=== PATIENT | female | born 1990 | race American Indian/Alaskan Native ===

== ENCOUNTER 2016-09-15 10:06 | Observation (INO) | payer OTHER ==
[2016-09-15 10:06] VITALS: BMI 37.0
[2016-09-15 10:13] VITALS: TEMP 99.2
[2016-09-15] MEDS ORDERED: Sodium Chloride 0.9% 1,000 ML IV STA (10:36)
--- NOTE | 2016-09-15 10:46 | ED PDOC ---
Arrival/HPI - General Chief Complaint: GI Problem Time Seen by Provider: 09/15/16 10:13 Historian: Patient - History of Present Illness Narrative History of Present Illness (Text): 09/15/16 10:43 26yo female present with complaint of vomiting and abdominal pain x 5days. States she was seen in [place] 5daysago for same complaint and DC home after normal lab with antiemetics. States she came to ED for persistent nonbilious/ bloody vomiting. Denies fever, chills, diarrhea, constipation, hematemesis, melena, hematochezia, chest pain, SOB, any other complaint. Past Medical History - Provider Review Nursing Documentation Reviewed: Yes - Infectious Disease Hx of Infectious Diseases: None - Past Medical History Past Medical History: No Previous - Cardiac Hx Cardiac Disorders: No - Pulmonary Hx Respiratory Disorders: No Hx Asthma: Yes - Neurological Hx Neurological Disorder: No - HEENT Hx HEENT Disorder: No - Renal Hx Renal Disorder: No Hx Kidney Stones: No - Endocrine/Metabolic Hx Endocrine Disorders: No - Hematological/Oncological Hx Blood Disorders: No - Integumentary Hx Dermatological Disorder: No - Musculoskeletal/Rheumatological Hx Musculoskeletal Disorders: No - Gastrointestinal Hx Gastrointestinal Disorders: No - Genitourinary/Gynecological Hx Genitourinary Disorders: No Hx Bladder Cancer: No - Psychiatric Hx Psychophysiologic Disorder: No Hx Depression: No Hx Emotional Abuse: No Hx Physical Abuse: No Hx Substance Use: Yes - Past Surgical History Past Surgical History: No Previous - Anesthesia Hx Anesthesia: No - Suicidal Assessment Feels Threatened In Home Enviroment: No Family/Social History - Physician Review Nursing Documentation Reviewed: Yes Family/Social History: Unknown Family HX Smoking Status: Current Some Days Smoker Hx Alcohol Use: Yes Hx Substance Use: Yes Substance used: marijuana Hx Substance Use Treatment: No Allergies/Home Meds Allergies/Adverse Reactions: Allergies No Known Allergies Allergy (Verified 09/15/16 10:08) Home Medications: Home Meds Medication Instructions Recorded Confirmed No Known Home Med 09/15/16 09/15/16 Review of Systems - Physician Review All systems were reviewed & negative as marked: Yes - Review of Systems Constitutional: Normal Eyes: Normal ENT: Normal Respiratory: Normal Cardiovascular: Normal Gastrointestinal: Abdominal Pain, Nausea, Vomiting. absent: Stool Changes, Constipation, Diarrhea, Hematochezia, Hematemesis Genitourinary Female: Normal Musculoskeletal: Normal Skin: Normal Neurological: Normal Endocrine: Normal Hemo/Lymphatic: Normal Psychiatric: Normal Physical Exam Vital Signs Reviewed: Yes Vital Signs Temp Pulse Resp BP Pulse Ox 09/15/16 12:06 59 L 18 125/79 97 09/15/16 11:05 99.2 F 56 L 18 128/85 97 09/15/16 10:09 99.2 F 56 L 17 128/85 99 Temperature: Afebrile Blood Pressure: Normal Pulse: Regular Respiratory Rate: Normal Appearance: Positive for: Well-Appearing, Non-Toxic, Comfortable Pain Distress: None Mental Status: Positive for: Alert and Oriented X 3 - Systems Exam Head: Present: Atraumatic, Normocephalic Pupils: Present: PERRL Extroacular Muscles: Present: EOMI Conjunctiva: Present: Normal Mouth: Present: Moist Mucous Membranes Neck: Present: Normal Range of Motion Respiratory/Chest: Present: Clear to Auscultation, Good Air Exchange. No: Respiratory Distress, Accessory Muscle Use Cardiovascular: Present: Regular Rate and Rhythm, Normal S1, S2. No: Murmurs Abdomen: Present: Normal Bowel Sounds, Other (Soft). No: Tenderness, Distention , Peritoneal Signs, Rebound, Guarding, McBurney's Point Tender, Rovsing's Sign Present Back: Present: Normal Inspection Upper Extremity: Present: Normal Inspection. No: Cyanosis, Edema Lower Extremity: Present: Normal Inspection. No: Edema Neurological: Present: GCS=15, CN II-XII Intact, Speech Normal Skin: Present: Warm, Dry, Normal Color. No: Rashes Psychiatric: Present: Alert, Oriented x 3, Normal Insight, Normal Concentration Medical Decision Making ED Course and Treatment: 09/15/16 13:43 PT presented for stated history. Her abdominal exam was benign, but she was noted vomiting in ED on presentation. She was otherwise comfortable and hemodynamically stable. Lab was unremarkable with exception of hypokalemia that was repleted in ED. Ketones was also noted in her UA and she was hydrated in ED. Obstructive series xray was negative for obstruction. Pt tolerated PO challenge in ED All result was DW the pt. She will be DC home with a rx of Reglan and referred to her PMD. Advised to follow BRAT diet. TRT ED for any new or worsening symptoms. - RAD Interpretation Radiology Orders: 09/15/16 10:37 obstructive [ABD 2 VIEWS (FLAT/UP OR DECUB)] [RAD] Stat - Medication Orders Current Medication Orders: Discontinued Medications Famotidine (Pepcid) 20 mg IVP STAT STA Stop: 09/15/16 10:37 Last Admin: 09/15/16 10:47 Dose: 20 mg Sodium Chloride (Sodium Chloride 0.9%) 1,000 mls @ 1,000 mls/hr IV .Q1H STA Stop: 09/15/16 11:35 Last Admin: 09/15/16 10:44 Dose: 1,000 mls/hr Potassium Chloride (Potassium Chloride 20 Meq/100 Ml) 20 meq in 100 mls @ 50 mls/hr IVPB Q2H STA Stop: 09/15/16 13:13 Last Admin: 09/15/16 12:25 Dose: 50 mls/hr Ondansetron HCl (Zofran Inj) 4 mg IVP STAT STA Stop: 09/15/16 10:37 Last Admin: 09/15/16 10:47 Dose: 4 mg ED OBSERVATION Discharge: Yes Date of observation admission: 09/15/16 Time of observation admission: 10:45 - Observation admission statement Patient is being placed in observation because:: GI labs ordered Zofran, Pepcid, 1L NS ordered Obstructive series ordered Will re evaluate - Goals of Observation Goals of observation are:: GI labs ordered Zofran, Pepcid, 1L NS ordered Obstructive series ordered Will re evaluate Disposition/Present on Arrival - Present on Arrival Any Indicators Present on Arrival: No History of DVT/PE: No History of Uncontrolled Diabetes: No Urinary Catheter: No History of Decub. Ulcer: No History Surgical Site Infection Following: None - Disposition Have Diagnosis and Disposition been Completed?: Yes Diagnosis: Vomiting, Abdominal pain, non-surgical Disposition: HOME/ ROUTINE Disposition Time: 13:50 Patient Plan: Discharge Condition: STABLE
[2016-09-15 10:50] LABS: ADD MANUAL DIFF? NO
[2016-09-15 10:55] LABS: BASO # 0.03 K/mm3 (0.0-2.0); BASO % 0.4 % (0.0-3.0); EOS % 0.1 % (1.5-5.0); GRAN # 3.63 (1.4-6.5); GRAN % 49.9 % (50.0-68.0); LYMPH # 2.8 (1.2-3.4); LYMPH % 38.6 % (22.0-35.0); MEAN CELL VOLUME 87.5 fL (80.0-105.0); MEAN CORPUSCULAR HEMOGLOBIN 30.2 pg (25.0-35.0); MEAN CORPUSCULAR HGB CONC 34.5 g/dl (31.0-37.0); MONO # 0.8 (0.1-0.6); PLATELET COUNT 264 10^3/uL (120.0-450.0); RED CELL DISTRIBUTION WIDTH 12.8 % (11.5-14.5); WHITE BLOOD COUNT 7.3 10^3/ul (4.5-11.0)
[2016-09-15 11:06] LABS: ALB/GLOB RATIO 1.1 (1.1-1.8); ALKALINE PHOSPHATASE 53 U/L (38-133); ALT/SGPT 34 U/L (7-56); AST/SGOT 20 U/L (15-39); BILIRUBIN,TOTAL 1.1 mg/dL (0.2-1.3); BLOOD UREA NITROGEN 8 mg/dL (7-21); CALCIUM 9.2 mg/dL (8.4-10.5); CARBON DIOXIDE 26 mmol/L (21-33); CHLORIDE 101 mmol/L (98-107); GFR AFRICAN-AMERICAN > 60; GLUCOSE,RANDOM 93 mg/dL (70-110); LIPASE 82 U/L (23-300); SODIUM 138 mmol/L (132-148); TOTAL PROTEIN 8.2 g/dL (5.8-8.3)
[2016-09-15 11:10] LABS: POTASSIUM 2.9 mmol/L (3.6-5.0)
[2016-09-15 13:07] LABS: URINE BILIRUBIN NEGATIVE (NEGATIVE); URINE BLOOD NEGATIVE (NEGATIVE); URINE GLUCOSE (UA) NEGATIVE (NEGATIVE); URINE KETONE 40 mg/dL (NEGATIVE); URINE LEUKOCYTE ESTERASE NEGATIVE Leu/uL (NEGATIVE); URINE PROTEIN TRACE mg/dL (<30 mg/dL)
[2016-09-15 13:08] LABS: URINE APPEARANCE CLEAR (CLEAR); URINE COLOR YELLOW (YELLOW)
--- NOTE | 2016-09-15 13:09 | RAD ---
HISTORY: persistent vomiting/abdominal pain COMPARISON: No prior. FINDINGS: BOWEL: There is paucity of bowel gas. No obstruction. No free air. BONES: Transitional developmental variants of the thoraco lumbar and and lumbosacral junction are suggested. There are rudimentary an asymmetrical lobe ribs and lumbosacral transitional elements suggested OTHER FINDINGS: None. IMPRESSION: No active disease.
[2016-09-15 13:18] LABS: URINE RBC 0 - 2 /hpf (0-2); URINE WBC 0 - 2 /hpf (0-6)
[2016-09-15 13:19] LABS: URINE AMORPHOUS SEDIMENT FEW; URINE BACTERIA MOD (NEG)
[2016-09-15 14:41] VITALS: BP 131/80; PULSE 571; RESP 16; O2SAT 100
== END 2016-09-15 14:12 | disposition home or self-care (01) ==
LOC: ED 10:06 → EROBSV 10:45
PROVIDERS: ADMIT Emergency Medicine; ATTEND Emergency Medicine
DX: R10.9 Unspecified abdominal pain (principal); R11.10 Vomiting, unspecified
CPT/HCPCS: 74020; 80053; 81001; 83690; 85025; 96374; 96375; 99285; G0378; J2405; J3480; J7040

== ENCOUNTER 2016-10-15 11:36 | Inpatient (IN) | payer OTHER ==
[2016-10-15 11:37] VITALS: BMI 37.0
[2016-10-15] MEDS ORDERED: Sodium Chloride 0.9% 1,000 ML IV STA (12:35)
--- NOTE | 2016-10-15 12:45 | ED PDOC ---
Arrival/HPI - General Chief Complaint: GI Problem Time Seen by Provider: 10/15/16 12:19 - History of Present Illness Narrative History of Present Illness (Text): 10/15/16 12:34 26 y/o F w/ PMHx of asthma presents to the ED c/o abd pain and vomiting. Pt states abd pain started yesterday morning w/ her menstrual cycle. Pt indication lower abd as source of pain. Pain constant, however worsening. Pt reports vomiting started last evening, NBNB. Pt admits to subjective F/C, lightheadedness, weakness. Pt denies CP, SOB, cough, wheezing, myalgias. Pt reports decreased appetite and unable to tolerate PO intake. Pt states menstrual cycle was late this month but home POC was negative. (Alicia Velasquez) Past Medical History - Provider Review Nursing Documentation Reviewed: Yes - Infectious Disease Hx of Infectious Diseases: None - Past Medical History Past Medical History: No Previous - Cardiac Hx Cardiac Disorders: No - Pulmonary Hx Respiratory Disorders: No Hx Asthma: Yes - Neurological Hx Neurological Disorder: No - HEENT Hx HEENT Disorder: No - Renal Hx Renal Disorder: No Hx Kidney Stones: No - Endocrine/Metabolic Hx Endocrine Disorders: No - Hematological/Oncological Hx Blood Disorders: No - Integumentary Hx Dermatological Disorder: No - Musculoskeletal/Rheumatological Hx Musculoskeletal Disorders: No - Gastrointestinal Hx Gastrointestinal Disorders: No - Genitourinary/Gynecological Hx Genitourinary Disorders: No Hx Bladder Cancer: No - Psychiatric Hx Psychophysiologic Disorder: No Hx Depression: No Hx Emotional Abuse: No Hx Physical Abuse: No Hx Substance Use: Yes - Past Surgical History Past Surgical History: No Previous - Anesthesia Hx Anesthesia: No - Suicidal Assessment Feels Threatened In Home Enviroment: No Family/Social History - Physician Review Nursing Documentation Reviewed: Yes Family/Social History: No Known Family HX Smoking Status: Current Some Days Smoker Hx Alcohol Use: Yes Hx Substance Use: Yes Substance used: marijuana Hx Substance Use Treatment: No Allergies/Home Meds Allergies/Adverse Reactions: Allergies No Known Allergies Allergy (Verified 10/15/16 11:52) Home Medications: Home Meds Medication Instructions Recorded Confirmed No Known Home Med 10/15/16 10/15/16 Review of Systems - Physician Review All systems were reviewed & negative as marked: Yes - Review of Systems Respiratory: absent: SOB Cardiovascular: absent: Chest Pain Physical Exam Vital Signs Reviewed: Yes Temperature: Afebrile Blood Pressure: Normal Pulse: Regular Respiratory Rate: Normal Appearance: Positive for: Ill-Appearing, Uncomfortable Pain Distress: Moderate Mental Status: Positive for: Alert and Oriented X 3 - Systems Exam Head: Present: Atraumatic, Normocephalic Pupils: Present: PERRL Extroacular Muscles: Present: EOMI Conjunctiva: Present: Normal Mouth: Present: Moist Mucous Membranes Respiratory/Chest: Present: Good Air Exchange, Wheezes (LLL). No: Respiratory Distress, Accessory Muscle Use Cardiovascular: Present: Regular Rate and Rhythm, Normal S1, S2. No: Murmurs Abdomen: Present: Tenderness (suprapubic), Normal Bowel Sounds, Guarding ( voluntary). No: Distention, Peritoneal Signs, Rebound Upper Extremity: Present: Normal Inspection Lower Extremity: Present: Normal Inspection Neurological: Present: GCS=15, Speech Normal Skin: Present: Warm, Dry, Normal Color Psychiatric: Present: Alert, Oriented x 3, Normal Insight, Normal Concentration Medical Decision Making - RAD Interpretation Survey Rodman: Radiologist ED Course and Treatment: 10/15/16 12:48 26 y/o F w/ abd pain and vomiting - CBC, CMP, Lipase - NS - Zofran - Toradol - reasses and dispo (Alicia Velasquez) Patient Seen With Resident: In agreement with resident note which contains more details about the patient. Patient was seen and evaluated with resident. Came up with plan and treatment together. 10/15/16 19:31 pt seen with resident. pt with abdominal pain n/v/d, labs ct unremarkable. pt with persistetn vomiting. will obs for intractable vomiting. (Steve Madden) - Lab Interpretations Lab Results: 10/15/16 13:00 10/15/16 13:00 Lab Results 10/15/16 13:00: Urine Color Yellow, Urine Appearance Turbid, Urine pH 6.0, Ur Specific [place] >= 1.030, Urine Protein 30 H, Urine Glucose (UA) Negative, Urine Ketones 40 H, Urine Blood Small H, Urine Nitrate Negative, Urine Bilirubin Small H, Urine Urobilinogen 1.0 H, Ur Leukocyte Esterase Negative, Urine RBC 0 - 2, Urine WBC Negative, Amorphous Sediment Many, Urine HCG, Qual Negative 10/15/16 13:00: Sodium 141, Potassium 3.8, Chloride 106, Carbon Dioxide 24, Anion Gap 15, BUN 5 L, Creatinine 0.8, Est GFR ( Amer) > 60, Est GFR (Non -Af Amer) > 60, Random Glucose 96, Calcium 9.8, Total Bilirubin 0.9, AST 26, ALT 21, Alkaline Phosphatase 71, Total Protein 8.4 H, Albumin 4.7, Globulin 3.7 , Albumin/Globulin Ratio 1.3, Lipase 106 10/15/16 13:00: WBC 6.5, RBC 4.64, Hgb 13.9, Hct 41.5, MCV 89.4, MCH 30.0, MCHC 33.5, RDW 13.3, Plt Count 272, MPV 11.0, Gran % 73.3 H, Lymph % (Auto) 19.2 L, [place] % (Auto) 5.4, Eos % (Auto) 1.9, Baso % (Auto) 0.2, Gran # 4.75, Lymph # 1.2 , [place] # 0.4, Eos # 0.1, Baso # 0.01 - RAD Interpretation Narrative RAD Interpretations (Text): 10/15/16 14:36 Abdomen/Pelvis CT: no acute findings (Alicia Velasquez) Radiology Orders: 10/15/16 13:12 ABD & PELVIS IV CONTRAST ONLY [CT] Stat - Medication Orders Current Medication Orders: Dextrose/Sodium Chloride (Dextrose 5%/0.45% Ns 1000 Ml) 1,000 mls @ 100 mls/hr IV .Q10H JOSE Last Admin: 10/15/16 15:19 Dose: 100 mls/hr Discontinued Medications Diphenhydramine HCl (Benadryl) 25 mg IVP STAT STA Stop: 10/15/16 14:32 Last Admin: 10/15/16 15:16 Dose: 25 mg Famotidine (Pepcid) 20 mg IVP STAT STA Stop: 10/15/16 12:33 Last Admin: 10/15/16 13:03 Dose: 20 mg Sodium Chloride (Sodium Chloride 0.9%) 1,000 mls @ 999 mls/hr IV .Q1H1M STA Stop: 10/15/16 13:35 Last Admin: 10/15/16 12:40 Dose: 999 mls/hr Iohexol (Omnipaque 350 100 Ml) Confirm Administered Dose 350 mg .ROUTE .STK-MED ONE Stop: 10/15/16 13:26 Ketorolac Tromethamine (Toradol) 30 mg IVP STAT STA Stop: 10/15/16 12:33 Last Admin: 10/15/16 13:03 Dose: 30 mg Metoclopramide HCl (Reglan) 10 mg IVP STAT STA Stop: 10/15/16 14:32 Last Admin: 10/15/16 15:17 Dose: 10 mg Ondansetron HCl (Zofran Inj) 4 mg IVP STAT STA Stop: 10/15/16 12:33 Last Admin: 10/15/16 13:03 Dose: 4 mg Ondansetron HCl (Zofran Inj) 4 mg IVP STAT STA Stop: 10/15/16 13:26 Last Admin: 10/15/16 13:46 Dose: 4 mg Disposition/Present on Arrival - Present on Arrival Any Indicators Present on Arrival: No History of DVT/PE: No History of Uncontrolled Diabetes: No Urinary Catheter: No History of Decub. Ulcer: No History Surgical Site Infection Following: None - Disposition Have Diagnosis and Disposition been Completed?: Yes Disposition Time: 14:37 Patient Plan: Observation - Disposition Diagnosis: Intractable abdominal pain Disposition: HOSPITALIZED Patient Problems: Current Active Problems Problem Status Onset Intractable abdominal pain Acute Condition: STABLE
[2016-10-15 13:04] LABS: ADD MANUAL DIFF? NO
[2016-10-15 13:05] LABS: BASO # 0.01 K/mm3 (0.0-2.0); BASO % 0.2 % (0.0-3.0); EOS # 0.1 (0.0-0.7); EOS % 1.9 % (1.5-5.0); GRAN # 4.75 (1.4-6.5); GRAN % 73.3 % (50.0-68.0); HEMATOCRIT 41.5 % (36.0-48.0); LYMPH # 1.2 (1.2-3.4); LYMPH % 19.2 % (22.0-35.0); MEAN CELL VOLUME 89.4 fL (80.0-105.0); MEAN CORPUSCULAR HGB CONC 33.5 g/dl (31.0-37.0); MONO # 0.4 (0.1-0.6); MONO % 5.4 % (1.0-6.0); PLATELET COUNT 272 10^3/uL (120.0-450.0); RED CELL DISTRIBUTION WIDTH 13.3 % (11.5-14.5); WHITE BLOOD COUNT 6.5 10^3/ul (4.5-11.0)
[2016-10-15 13:09] LABS: URINE BILIRUBIN SMALL (NEGATIVE); URINE BLOOD SMALL (NEGATIVE); URINE GLUCOSE (UA) NEGATIVE (NEGATIVE); URINE KETONE 40 mg/dL (NEGATIVE); URINE LEUKOCYTE ESTERASE NEGATIVE Leu/uL (NEGATIVE); URINE PROTEIN 30 mg/dL (<30 mg/dL)
[2016-10-15 13:10] LABS: URINE APPEARANCE TURBID (CLEAR); URINE COLOR YELLOW (YELLOW)
[2016-10-15 13:15] LABS: URINE RBC 0 - 2 /hpf (0-2); URINE WBC NEGATIVE /hpf (0-6)
[2016-10-15 13:16] LABS: ALB/GLOB RATIO 1.3 (1.1-1.8); ALKALINE PHOSPHATASE 71 U/L (38-133); ALT/SGPT 21 U/L (7-56); AST/SGOT 26 U/L (15-39); BILIRUBIN,TOTAL 0.9 mg/dL (0.2-1.3); BLOOD UREA NITROGEN 5 mg/dL (7-21); CALCIUM 9.8 mg/dL (8.4-10.5); CARBON DIOXIDE 24 mmol/L (21-33); CHLORIDE 106 mmol/L (98-107); GFR AFRICAN-AMERICAN > 60; GLUCOSE,RANDOM 96 mg/dL (70-110); LIPASE 106 U/L (23-300); POTASSIUM 3.8 mmol/L (3.6-5.0); SODIUM 141 mmol/L (132-148); TOTAL PROTEIN 8.4 g/dL (5.8-8.3); URINE AMORPHOUS SEDIMENT MANY
[2016-10-15] MEDS ORDERED: Iohexol 350 MG/100 ML VIAL ONE (13:25)
--- NOTE | 2016-10-15 14:27 | CT ---
PROCEDURE: CT Abdomen and Pelvis with contrast HISTORY: abd pain COMPARISON: 10/13/2013 TECHNIQUE: Contrast dose: 100 cc of Omni 350 Radiation dose: Total exam DLP = 520 mGy-cm. This CT exam was performed using one or more of the following dose reduction techniques: Automated exposure control, adjustment of the mA and/or kV according to patient size, and/or use of iterative reconstruction technique. FINDINGS: LOWER THORAX: Unremarkable. LIVER: Unremarkable. No gross lesion or ductal dilatation. GALLBLADDER AND BILE DUCTS: Unremarkable. PANCREAS: Unremarkable. No gross lesion or ductal dilatation. SPLEEN: Unremarkable. ADRENALS: Unremarkable. No mass. KIDNEYS AND URETERS: Unremarkable. No hydronephrosis. No solid mass. VASCULATURE: Unremarkable. No aortic aneurysm. BOWEL: Unremarkable. No obstruction. No gross mural thickening. APPENDIX: Normal appendix. PERITONEUM: Unremarkable. No free fluid. No free air. LYMPH NODES: Unremarkable. No enlarged lymph nodes. BLADDER: Unremarkable. REPRODUCTIVE: Unremarkable. BONES: No acute fracture. OTHER FINDINGS: None. IMPRESSION: No acute findings
[2016-10-15] MEDS ORDERED: DiphenhydrAMINE 50 mg/ml Inj IVP STA (14:31)
[2016-10-15] MEDS ORDERED: Dextrose 5%/0.45% NS 1,000 ML IV SCH ×2 (14:45→19:32)
[2016-10-15] MEDS: Dextrose 5%/0.45% NS 1,000 ML IV SCH (20:31)
[2016-10-15] MEDS: cefTRIAXone 1 gm 1 GM/100 ML BAG IVPB SCH (21:05)
[2016-10-15] MEDS: Morphine 2 mg/ml ISec IVP PRN (21:06)
[2016-10-15] MEDS ORDERED: POLYETHYLENE GLYCOL 3350 17 GM/Dose PACKET PO SCH (21:30)
[2016-10-15] MEDS: metroNIDAZOLE IV 500 mg/100 ml 500 MG/100 ML BAG IVPB SCH ×2 (22:02→22:03)
--- NOTE | 2016-10-15 22:29 | HP ---
HISTORY OF PRESENT ILLNESS: This 26-year-old female was examined in the [facility] ER in the presence of family after case was discussed in detail with Dr. Steve Erazo, Emergency Room physician. This 26-year-old female presented to the Emergency Room complaining of abdominal pain and vomiting since earlier this morning and the patient was noted to have dry heaves and nonbloody vomitus while in the Emergency Room while complaining of abdominal discomfort. She states that the last time she ate was yesterday, which was some rice pudding, as well as a family member who stated they ate the same food and did not get sick and, subsequently, the patient felt abdominal discomfort last evening, started to have some nausea and vomiting, and then presented to [facility] ER for further evaluation of the above. She stated that she was having her menstrual period and has had a similar episode of nausea and vomiting associated with her menstrual cycle in the past and otherwise had no other complaints. She states she takes no medication. She has no allergies to medication and has had no surgery in her history as well. REVIEW OF SYSTEMS: HEAD: No headache or seizure. EYES: No change in visual acuity. EARS: No hearing loss. THROAT: No swallowing difficulty. NECK: No stiffness. CARDIAC: No history of chest pain or hypertension. PULMONARY: No cough, no hemoptysis. GASTROINTESTINAL: No hematemesis, no melena. GENITOURINARY: No dysuria. SKIN: Without rash. NEUROLOGICAL: No knowledge of seizures. VASCULAR: No claudication. PSYCHOLOGICAL: Appears anxious. FAMILY HISTORY: Noncontributory. SOCIAL HISTORY: She is a smoker, social drinker, marijuana user. Denies any IV drug misuse and is actively employed at [employer]. PHYSICAL EXAMINATION: VITAL SIGNS: Temperature 98.3, respirations 18, pulse 67, blood pressure 128/73 , pulse ox 98% room air. Monitor showed normal sinus rhythm. HEENT: Head: Normocephalic, atraumatic. Eyes: No icterus. Ears: Clear. Throat: noninjected. NECK: Supple. HEART: Irregular S1, S2. No pathological rubs, murmurs, or gallops. LUNGS: Clear. ABDOMEN: Soft, no palpable organomegaly, no rebound, no guarding, no tenderness. Audible bowel sounds were heard. EXTREMITIES: No clubbing, no cyanosis, no edema. SKIN: Without rash. NEUROLOGICAL: Intact. PSYCHOLOGICAL: Alert and anxious. VASCULAR: Legs warm to touch. LABORATORY DATA: White count 6500, hemoglobin 13.9, hematocrit 41.5, platelets 272,000. Sodium 141, K 3.8, chloride 106, bicarbonate 24, BUN 5, creatinine 0.8 , random blood sugar 96. All liver function testing was normal including bilirubin 0.9, AST 26, ALT 21, alkaline phosphatase 71. Lipase was normal at 106. Urinalysis showed no white cells. Urine test was negative. Abdominal pelvic CT was reported unremarkable by radiologist, Dr. Yamil Rice. IMPRESSION: A 26-year-old female with gastroenteritis, anxiety. Rule out sepsis. PLAN: To admit this patient. She will have blood and urine cultures ordered immediately. I have then ordered Rocephin 1 gram IV q. 24 and Flagyl 500 mg IV q. 8. She will be made n.p.o. and receive 0.45% saline IV fluid at 100 mL per hour. I have ordered Protonix 40 mg IV daily, Tylenol 650 mg p.o. q. 6 hours p.r.n. mild pain or temperature greater than 101, morphine 2 mg IV q. 4 hours p.r.n. severe pain. She will be kept n.p.o. I have placed a consultation with Dr. Surya Weller from and asked him to see the patient this evening for completeness sake. She will have repeat basic metabolic panel and CBC in the a.m. and, pending her clinical progress and results, additional testing will be ordered. Greater than fifty minutes were spent in the care, coordination of care, review of care and discussion of care with this patient, her family members, the Emergency Room staff and co-consultants today. Overall prognosis remains guarded at present. Aparna Rogers MD cc: [id number] TT: 10/15/2016 22:28:50 joe NI
--- NOTE | 2016-10-15 23:37 | CON ---
DATE: 10/15/2016 This patient was seen and evaluated earlier today. This 26-year-old patient with a past medical hist ory of asthma noticed acute onset of abdominal pain last night. She did have some pudding along with her boyfriend around 9 p.m. She noticed this discomfort, severe cramping, mainly lower abdominal pa in, followed by 3 episodes of loose bowel movements. The patient also had episodes of vomiting. She described that she had the same food along with her boyfriend, but he did not have any problem, but she clearly remembers having this discomfort occur after she ate the pudding, 1 hour after that. The patient does have some discomfort with vomiting and nausea during the onset of periods. The patient is now having period. Initially, she thought it could be related to the period. No fever. Still c omplaining of discomfort in the lower abdomen. Other past medical history significant for asthma. FAMILY HISTORY: Noncontributory. SOCIAL HISTORY: Positive for smoking, marijuana use. REVIEW OF SYSTEMS: Positive as above. Other systems reviewed. PHYSICAL EXAMINATION: GENERAL: The patient is lying on the bed, not in acute distress. VITAL SIGNS: Temperature is 98.3, blood pressure 130/76, pulse 80, respirations 17, O2 saturation is 99. HEENT: Atraumatic, anicteric. NECK: Supple. HEART: S1, S2 heard. LUNGS: Bilateral air entry present. ABDOMEN: Tenderness present in the lower abdomen, right lower quadrant, and suprapubic area mostly. There is no rebound or guarding. LABORATORY DATA: Hemoglobin 13.9, hematocrit 41.5. WBC 6.5, platelets 272. Chemistry is essentiall y unremarkable. IMPRESSION: This 26-year-old patient admitted with lower abdominal pain, cramping discomfort, diarrh ea, and vomiting. The differential diagnosis on the CT scan was reviewed, appears to have some thick ening of the colon and the small bowel loops. Clinically, is more suggestive of acute gastroenteriti s. The patient is empirically on antibiotics, ceftriaxone and Flagyl. We will continue with that. We will start the patient on a clear liquid diet. We will continue to closely follow up her other co morbidities including hypertension ____ asthma. RECOMMENDATIONS: We will continue antibiotics. Continue to closely follow up her care and suggest f urther management based on the clinical course. Thank you very much for allowing me to participate in the care of the patient. Surya Weller MD cc: [phone] TT: 10/15/2016 23:37:45 Confirmation # [id number] Dictation # [id number] dn
[2016-10-16] MEDS: Morphine 2 mg/ml ISec IVP PRN ×5 (00:50→23:16)
--- NOTE | 2016-10-16 05:23 | CP.PCM.PN ---
Subjective - Date & Time of Evaluation Date of Evaluation: 10/16/16 Time of Evaluation: 05:16 - Subjective Subjective: called by nurse pt has been c/o nausea and vomitting mutiple times through the night .additional doses of zofrand was given but no improvement. pt ,s urine is also positive for canabinoids and opiates .pt is on antibiotics flaygel and rocephine. Objective - Vital Signs/Intake and Output Vital Signs (last 24 hours): Temp Pulse Resp BP Pulse Ox 98.3 F 80 20 130/76 99 10/15/16 11:49 10/15/16 17:51 10/15/16 18:00 10/15/16 17:51 10/15/16 17:51 - Medications Medications: Current Medications Acetaminophen (Tylenol 325mg Tab) 650 mg PO Q6H PRN PRN Reason: pain or fever >100 Metronidazole (Flagyl) 500 mg in 100 mls @ 100 mls/hr IVPB Q8 JOSE PRN Reason: Protocol Last Admin: 10/15/16 22:03 Dose: Not Given Ceftriaxone Sodium (Rocephin 1 Gram Ivpb) 1 gm in 100 mls @ 100 mls/hr IVPB DAILY [facility] PRN Reason: Protocol Last Admin: 10/15/16 21:05 Dose: 100 mls/hr Dextrose/Sodium Chloride (Dextrose 5%/0.45% Ns 1000 Ml) 1,000 mls @ 100 mls/hr IV .Q10H [facility] Last Admin: 10/15/16 20:31 Dose: 100 mls/hr Morphine Sulfate (Morphine) 2 mg IVP Q4H PRN PRN Reason: Pain, severe (8-10) Last Admin: 10/16/16 04:55 Dose: 2 mg Ondansetron HCl (Zofran Inj) 4 mg IVP Q4H PRN PRN Reason: Nausea/Vomiting Last Admin: 10/16/16 02:58 Dose: 4 mg Pantoprazole Sodium (Protonix Inj) 40 mg IVP DAILY [facility] - Constitutional Appears: No Acute Distress - Head Exam Head Exam: NORMOCEPHALIC - Eye Exam Eye Exam: Normal appearance Pupil Exam: PERRL - ENT Exam ENT Exam: Mucous Membranes Moist - Neck Exam Neck Exam: Full ROM - Respiratory Exam Respiratory Exam: Clear to Ausculation Bilateral, NORMAL BREATHING PATTERN - Cardiovascular Exam Cardiovascular Exam: RRR, +S1, +S2 - GI/Abdominal Exam GI & Abdominal Exam: Soft, Normal Bowel Sounds - Rectal Exam Rectal Exam: Deferred - Extremities Exam Extremities Exam: Full ROM - Neurological Exam Neurological Exam: Alert, Awake, CN II-XII Intact, Oriented x3 - Psychiatric Exam Psychiatric exam: Normal Affect - Skin Skin Exam: Dry, Warm Assessment and Plan - Assessment and Plan (Free Text) Assessment: nausea / vomiting multiple times.? drug withdrawl ? side effect of flagyle. Plan: will give ativan 0.5mg x1.
[2016-10-16 07:58] LABS: ADD MANUAL DIFF? NO
[2016-10-16 08:04] LABS: BASO # 0.01 K/mm3 (0.0-2.0); BASO % 0.1 % (0.0-3.0); GRAN # 5.28 (1.4-6.5); GRAN % 72.2 % (50.0-68.0); HEMATOCRIT 35.7 % (36.0-48.0); LYMPH # 1.4 (1.2-3.4); MEAN CELL VOLUME 88.6 fL (80.0-105.0); MEAN CORPUSCULAR HEMOGLOBIN 29.8 pg (25.0-35.0); MEAN CORPUSCULAR HGB CONC 33.6 g/dl (31.0-37.0); MEAN PLATELET VOLUME 11.2 fl (7.0-11.0); MONO # 0.6 (0.1-0.6); MONO % 8.7 % (1.0-6.0); PLATELET COUNT 225 10^3/uL (120.0-450.0); RED CELL DISTRIBUTION WIDTH 13.4 % (11.5-14.5); WHITE BLOOD COUNT 7.3 10^3/ul (4.5-11.0)
[2016-10-16 08:10] LABS: BLOOD UREA NITROGEN 5 mg/dL (7-21); CALCIUM 8.8 mg/dL (8.4-10.5); CARBON DIOXIDE 17 mmol/L (21-33); CHLORIDE 110 mmol/L (95-110); GFR AFRICAN-AMERICAN > 60; GLUCOSE,RANDOM 121 mg/dL (70-110); POTASSIUM 3.5 mmol/L (3.6-5.0); SODIUM 139 mmol/L (132-148)
[2016-10-16] MEDS: cefTRIAXone 1 gm 1 GM/100 ML BAG IVPB SCH (09:18)
[2016-10-16] MEDS: Dextrose 5%/0.45% NS 1,000 ML IV SCH (17:19)
--- NOTE | 2016-10-16 18:20 | PN ---
DATE: 10/16/2016 SUBJECTIVE: This patient was seen and evaluated earlier today. The patient's boyfriend was at [facility]. The patient's abdominal pain she feels is slightly better, but she still has some episodes of vo miting. PHYSICAL EXAMINATION: VITAL SIGNS: Temperature is 98.4, blood pressure is 100/58, pulse is 68. HEENT: Atraumatic, anicteric. NECK: Supple. HEART: S1, S2 heard. LUNGS: Bilateral air entry present. ABDOMEN: Soft. There is a mild tenderness present in the epigastric region and also lower abdomen. There is no rebound or guarding. EXTREMITIES: No edema. No cyanosis. LABORATORY DATA: Hemoglobin is 12, hematocrit 35.7, WBC 7.3, platelets 225. Chemistry is potassium 3.5. Sodium 139. IMPRESSION: This 26-year-old patient is admitted with abdominal pain, nausea, vomiting, diarrhea. T he patient clinically more suspicious for gastroenteritis. The patient still has episodes of vomitin g. The patient is presently on ceftriaxone and Flagyl. We will continue that. The patient is also on Protonix 40 mg IV, we will continue that. Stool is requested, stool for culture. The patient is kept n.p.o. because of the episodes of vomiting. Once they subside, then we will start the patient o n clear liquid diet and slowly advance the diet. Thank you very much for allowing us to participate in the care of the patient. Surya Weller MD cc: [id number] TT: 10/16/2016 18:19:19 Confirmation # [id number] Dictation # [id number] jn
[2016-10-16] MEDS: Potassium Chl 40 mEq in D5-1/2 1,000 ML IV SCH (18:23)
[2016-10-17] MEDS: Potassium Chl 40 mEq in D5-1/2 1,000 ML IV SCH (05:28)
[2016-10-17] MEDS: Morphine 2 mg/ml ISec IVP PRN (05:42)
--- NOTE | 2016-10-17 05:51 | CP.PCM.PN ---
Subjective - Date & Time of Evaluation Date of Evaluation: 10/17/16 Time of Evaluation: 05:40 - Subjective Subjective: called by nurse pt is crying and shouting and c/o abdominal pain (lower abdomen ) and head ache. pt was given reglan erlier for vomiting . pt refused zofran states zofran gives her headache pt is currently having menstration and states she always gets cramps with mentstration but this time it is worse.pt is refusing other meds staes give me my pain medicine i am in pain Objective - Vital Signs/Intake and Output Vital Signs (last 24 hours): Temp Pulse Resp BP Pulse Ox 98.6 F 66 18 136/76 100 10/16/16 16:00 10/16/16 16:00 10/16/16 16:00 10/16/16 16:00 10/16/16 16:00 Intake and Output: 10/16/16 10/17/16 18:59 06:59 Intake Total 1200 0 Balance 1200 0 - Medications Medications: Current Medications Acetaminophen (Tylenol 325mg Tab) 650 mg PO Q6H PRN PRN Reason: pain or fever >100 Last Admin: 10/17/16 01:55 Dose: 650 mg Metronidazole (Flagyl) 500 mg in 100 mls @ 100 mls/hr IVPB Q8 JOSE PRN Reason: Protocol Last Admin: 10/15/16 22:03 Dose: Not Given Ceftriaxone Sodium (Rocephin 1 Gram Ivpb) 1 gm in 100 mls @ 100 mls/hr IVPB DAILY JOSE PRN Reason: Protocol Last Admin: 10/16/16 09:18 Dose: 100 mls/hr Potassium Chloride/Dextrose/Sod Cl (Potassium Chl 40 Meq In D5-1/2ns) 1,000 mls @ 100 mls/hr IV .Q10H JOSE Last Admin: 10/17/16 05:28 Dose: 100 mls/hr Morphine Sulfate (Morphine) 2 mg IVP Q6H PRN PRN Reason: Pain, severe (8-10) Last Admin: 10/16/16 23:16 Dose: 2 mg Ondansetron HCl (Zofran Inj) 4 mg IVP Q4H PRN PRN Reason: Nausea/Vomiting Last Admin: 10/16/16 17:27 Dose: 4 mg Pantoprazole Sodium (Protonix Inj) 40 mg IVP DAILY [facility] Last Admin: 10/16/16 09:18 Dose: 40 mg - Labs Labs: 10/16/16 07:54 10/16/16 07:54 - Constitutional Appears: Other (pt is crying loud c/o abdominal pain.) - Head Exam Head Exam: NORMOCEPHALIC - Eye Exam Eye Exam: PERRL Pupil Exam: PERRL - ENT Exam ENT Exam: Mucous Membranes Moist - Neck Exam Neck Exam: Full ROM - Respiratory Exam Respiratory Exam: Clear to Ausculation Bilateral - Cardiovascular Exam Cardiovascular Exam: RRR, +S1, +S2 - GI/Abdominal Exam GI & Abdominal Exam: Soft, Normal Bowel Sounds - Rectal Exam Rectal Exam: Deferred - Extremities Exam Extremities Exam: Full ROM - Neurological Exam Neurological Exam: Awake, CN II-XII Intact, Oriented x3 - Psychiatric Exam Psychiatric exam: Anxious - Skin Skin Exam: Dry, Warm Assessment and Plan - Assessment and Plan (Free Text) Assessment: lower abdominal pain /dysmenorrhea. urine hcg is negative . ? drug seeking behavior. Plan: morphine 2 mg x1 given to pt . suggest psych consult.
--- NOTE | 2016-10-17 06:38 | PN ---
DATE: 10/16/2016 This 26-year-old female was examined at her bedside in the presence of her family and her case was reviewed in detail with her nurse Katiuska Lopez, registered nurse, as well as Dr. Surya Weller from GI. The patient was admitted with intractable nausea and vomiting in the setting of clinical gastroenteritis and has had persistent nausea and vomiting today that has been treated with nothing per orum, IV fluids, IV antibiotics and Zofran. The patient's CAT scan was reviewed in detail with Dr. Surya Weller who concurs with the radiographic as well as clinical diagnosis of gastroenteritis and states the patient should remain n.p.o. today. PHYSICAL EXAMINATION: VITAL SIGNS: Show temperature 98.6, respirations 18, pulse 66 and blood pressure 136/76 with a pulse ox of 100% on room air. HEAD: Normocephalic, atraumatic. EYES: Show no icterus. EARS: Clear. THROAT: Noninjected. NECK: Supple. HEART: Regular S1, S2. LUNGS: No wheezing. ABDOMEN: Soft, without palpable organomegaly. There is no rebound, no guarding. EXTREMITIES: Show no clubbing, no cyanosis, no edema. SKIN: Without rash. NEUROLOGIC: Intact. PSYCHOLOGICAL: She remains anxious. VASCULAR: She has normal temperature to touch. LABORATORY DATA: Show white count 7300, hemoglobin 12, hematocrit 35.7, platelets 225,000. Her sodium is 139, K 3.5, chloride 110, bicarb 17, BUN 5, creatinine 0.7, random blood sugar is 121. All liver function testing was normal including bilirubin 0.9, AST 26, ALT 21 and alk phos 71. Her urine toxicology showed positive opiates and positive marijuana. Blood culture shows no growth at 24 hours. IMPRESSION: A 26-year-old female admitted with gastroenteritis, now with labs showing evidence of drug abuse and misuse, hypokalemia secondary to vomiting, history of anxiety neurosis and now with gastroenteritis. PLAN: The plan at present is to continue n.p.o. She continues on Flagyl 500 mg IV q.8, Protonix 40 mg IV daily. She will have potassium 40 mEq added to each liter of IV fluid. She is receiving Rocephin 1 gram IV q.24, Tylenol 650 p.o. q.6 hours p.r.n. pain or temperature greater than 101 and Zofran 4 mg IV q.4 hours p.r.n. nausea and vomiting. Her clinical progress will be monitored daily. Diet will be advanced when she is felt safe to do so by Dr. Surya Weller. All of the above was discussed. Greater than sixty minutes was spent in the care, coordination of care, review of care and discussion of care with this patient, family, nursing staff and co-consultants today. Prognosis remains stable at present. Aparna Rogers MD cc: [id number] TT: 10/17/2016 06:37:59 Confirmation # [id number] Dictation # [id number] sn MTDD
[2016-10-17] MEDS: cefTRIAXone 1 gm 1 GM/100 ML BAG IVPB SCH (09:42)
[2016-10-17] MEDS: Sucralfate 1 gm/10 ml Oral Susp UD PO SCH ×4 (09:45→21:24)
[2016-10-17] MEDS ORDERED: Morphine 2 mg/ml ISec IVP PRN (11:50)
--- NOTE | 2016-10-17 17:28 | PN ---
DATE: 10/17/2016 This patient was seen and evaluated earlier today. The patient's boyfriend was at bedside. The patient was started on a clear liquid diet. The patient is able to keep it down. She also feels that her abdominal discomfort has improved. PHYSICAL EXAMINATION: VITAL SIGNS: Temperature is 99.1, pulse of 50, blood pressure 140/94. HEENT: Atraumatic, anicteric. NECK: Supple. HEART: S1, S2 heard. LUNGS: Bilateral air entry present. ABDOMEN: Soft. There is no mass palpable. There is mild tenderness present in the epigastric and also in the abdomen. LABORATORY DATA: No recent labs today, but the potassium is 3.4, being supplemented. The patient's urine tox screen is positive for marijuana. IMPRESSION: The patient is a 26-year-old patient admitted with abdominal pain, vomiting and also diarrhea clinically more suggestive of acute gastroenteritis, now slowly improving and started on a diet. Will continue the antibiotics. Will also add Carafate liquid and supplement potassium. Thank you very much for allowing us to participate in the care of the patient. Surya Weller MD cc: [id number] TT: 10/17/2016 17:27:27 Confirmation # [id number] Dictation # [id number] NI
--- NOTE | 2016-10-17 22:32 | PN ---
DATE: 10/17/2016 This 26-year-old female was examined at her bedside. Her family was present.. She stated she was given clear liquids for breakfast and lunch and has had no vomiting subsequently. She complains of insomnia. She was found on drug screen to have urine positive for opioids and marijuana and was reminded to ambulate with assistance. PHYSICAL EXAMINATION: VITAL SIGNS: She was noted to have a temperature of 98.6, respirations 18, pulse 66 and blood pressure 136/76 with a pulse ox of 100% on room air. HEAD: Normocephalic, atraumatic. EYES: No icterus. EARS: Clear. THROAT: Noninjected. NECK: Supple. HEART: Regular S1, S2. LUNGS: Clear. ABDOMEN: Soft, nontender, no palpable organomegaly. No rebound, no guarding, no tenderness. Audible bowel sounds in all 4 quadrants. EXTREMITIES: No clubbing, no cyanosis, no edema. SKIN: Without rash. NEUROLOGIC: Intact. PSYCHOLOGICAL: Alert. VASCULAR: Legs were warm to touch. LABORATORY DATA: White count 7300, hemoglobin 12, hematocrit 35.7, platelets 225,000. Sodium 139, K 3.4, chloride 110, bicarb 17, BUN 5, creatinine 0.7, random blood sugar was 121. All liver function testing was normal including bilirubin 0.9, AST 26, ALT 21 and alk phos 71. Urine test was negative. Urine toxicology screen was positive for opiates and marijuana. Abdominal CT was consistent with gastroenteritis. IMPRESSION: A 26-year-old female admitted with gastroenteritis, vomiting, now with hypokalemia, chronic insomnia, anxiety neurosis. PLAN: To continue D5 0.9 saline with 40 mEq of potassium at 100 mL per hour, Protonix 40 mg IV daily, Carafate 1 gram p.o. q.i.d., Benadryl 25 mg p.o. at bedtime p.r.n. insomnia. She remains on clear liquid diet under the direction of Dr. Surya Weller from GI. I have instructed the patient with her family to ambulate with assistance. Her blood culture shows no growth at 48 hours. Parenteral antibiotics have been discontinued. 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 All of this has been explained in detail to the patient, family members at the bedside and her nurse, Yaneth Peck. Greater than fifty.minutes was spent in the care, coordination of care and review of care for this patient today. Aparna Rogers MD cc: [id number] TT: 10/17/2016 22:32:17 Confirmation # [id number] Dictation # [id number] joe NI
[2016-10-18] MEDS: Potassium Chl 40 mEq in D5-1/2 1,000 ML IV SCH (04:07)
[2016-10-18 08:43] VITALS: RESP 20
[2016-10-18] MEDS: Sucralfate 1 gm/10 ml Oral Susp UD PO SCH ×3 (09:33→17:37)
[2016-10-18] MEDS ORDERED: Potassium Chl 40 mEq in D5-1/2 1,000 ML IV SCH (11:09)
--- NOTE | 2016-10-18 11:43 | PN ---
DATE: 10/18/2016 This 26-year-old female was examined at her bedside. Her family member was present and stated that the patient was showing improvement in her overall symptomatology. She is on clear liquids under the direction of Dr. Weller from GI. She had not had a bowel movement and states she is passing gas per rectum, and states her menstrual period is slowly subsiding. She denies any fever or chills, and there have been no reports of true vomiting though she does have episodes where she spits up mucus. PHYSICAL EXAMINATION: VITAL SIGNS: Temperature is 98.4, respirations 20, pulse 58, blood pressure 123 /83 and a pulse ox of 98% room air. HEAD: Normocephalic, atraumatic. EYES: No icterus. EARS: Clear. THROAT: Noninjected. NECK: Supple. HEART: Regular S1, S2. LUNGS: Clear. ABDOMEN: Soft, nontender. No palpable organomegaly, no rebound, no guarding, no tenderness. She has bowel sounds in all 4 quadrants. EXTREMITIES: Show no clubbing, no cyanosis, no edema. SKIN: Warm to touch. VASCULAR: Legs warm to touch. PSYCHOLOGICAL: Alert. NEUROLOGIC: Intact. LABORATORY DATA: White count 7300, hemoglobin 12, hematocrit 35.7, platelets 225,000. Sodium 139. Today's K is 4.3, chloride 110, BUN 5, creatinine 0.7, random blood sugar 121. All liver function testing was normal including bilirubin 0.9, AST 26, ALT 21, and alk phos 71. Urine was negative. Urine drug screen was positive for opiates and marijuana. Abdominal pelvic CAT scan was positive for gastroenteritis, and an abdominal ultrasound has been ordered by Dr. Weller this morning for further evaluations of her nausea and vomiting. IMPRESSION: A 26-year-old female admitted with gastroenteritis, now being evaluated for persistent nausea and vomiting. She remains on clear liquids. Her medications will include Carafate 1 gram p.o. q.i.d., D5 0.45 with 40 mEq of potassium per liter at 100 an hour, Protonix 40 mg IV daily, and Tylenol 650 p.o. q. 6 hours p.r.n. pain. I will discontinue her morphine. We will await the results of her abdominal ultrasound. She continues on clear liquid diet, and I have instructed the family to ambulate the patient, and once the patient is cleared by GI, she is instructed to follow up with her and rescue fire fighter crash fire, Dr. Snowden in [place] regarding her gynecological issues, premenstrual syndrome issues, and hopefully, she will be compliant with the above. Greater than fifty minutes were spent in the care, coordination of care, review of care, and discussion of care with this patient, her family, her nurse, and co -consultants today. Aparna Rogers MD cc: [id number] TT: 10/18/2016 11:43:28 Confirmation # [id number] Dictation # [id number] jn MTDD
--- NOTE | 2016-10-18 14:53 | PN ---
DATE: 10/18/2016 Seen and examined at the bedside this morning. She was ambulating in the [place] and with family and with a male member and returned to the room. She reported having nausea and did vomit this morning. No reports of any bleeding. No abdominal pain. The patient has not had a bowel moment, but does report passing gas. No reports of any hematemesis. Denies any shortness of breath or chest pain. VITAL SIGNS: Temperature is 98.4, blood pressure is 123/83, pulse , respirations 20, 98% on room air. LABORATORIES: Today potassium is 4.3. This is much improved compared to yesterday at 3.4. The patient is on IV fluids with potassium. PE: HEENT: anicteric Neck: supple CV: S1, S2 Lungs: clear Abdomen: (+) BS, soft, nondistended, nontender, or rebound or guarding Extremity: no edema Neuro: A/A/Ox3 ASSESSMENT/PLAN: This is a 26-year-old female who came with abdominal pain, vomiting, and diarrhea, which appears more like gastroenteritis. The patient was slowly improving, but occasionally still complains of nausea and vomiting. She is currently on a clear liquid diet. Discussed with patient that we will increase her diet to a full liquid, that she should take in small amounts of food frequently. We will request for an abdominal ultrasound, rule out any gallbladder pathology as well and that she would benefit from an elective outpatient endoscopy at a later time when her symptoms are much improved. The patient's diet can be advanced as tolerated. If she tolerates this full liquid , we can consider advancing her diet tomorrow to a soft low residual diet. For now, we will continue her proton pump inhibitor. She is on IV fluids and Carafate. Discussed with her in detail along with her male family member at the bedside. The patient was seen and discussed with Dr. Weller. Katie Cayla JOVAN cc: [id number] TT: 10/18/2016 14:53:11 Confirmation # [id number] Dictation # [id number] en MTDD
[2016-10-18 16:20] VITALS: BP 131/89; PULSE 51; TEMP 99.1; O2SAT 100
--- NOTE | 2016-10-18 19:51 | PN ---
DATE: 10/18/2016 ADDENDUM: This is an addendum to the GI progress report dictated by Katie Kulkarni APN. The patient was seen and evaluated earlier. The patient's boyfriend was at bedside. The patient was tolerating a clear liquid diet. Will advance the diet to full liquid then to soft diet if tolerating. The patient has been on antibi otics for possible gastroenteritis, ceftriaxone and Flagyl. The patient in addition is on PPI and al so Carafate. If the patient is doing well, the diet can be advanced to a low residue soft diet. Thank you very much for allowing us to participate in the care of the patient. Surya Weller MD cc: [id number] TT: 10/18/2016 19:50:20 Confirmation # [id number] Dictation # [id number] dn
--- NOTE | 2016-10-18 21:25 | CP.PCM.PN ---
Subjective - Date & Time of Evaluation Date of Evaluation: 10/18/16 Time of Evaluation: 21:24 - Subjective Subjective: I came to see patient who wanted to sign out AMA. To my surprise patient has already left the floor. Objective - Vital Signs/Intake and Output Vital Signs (last 24 hours): Temp Pulse Resp BP Pulse Ox 99.1 F 51 L 20 131/89 100 10/18/16 16:00 10/18/16 16:00 10/18/16 16:00 10/18/16 16:00 10/18/16 16:00 Intake and Output: 10/18/16 10/19/16 18:59 06:59 Intake Total 600 540 Output Total 0 Balance 600 540 - Medications Medications: Current Medications Acetaminophen (Tylenol 325mg Tab) 650 mg PO Q6H PRN PRN Reason: pain or fever >100 Last Admin: 10/17/16 01:55 Dose: 650 mg Diphenhydramine HCl (Benadryl) 25 mg PO HS PRN PRN Reason: Insomnia Last Admin: 10/17/16 21:36 Dose: 25 mg Potassium Chloride/Dextrose/Sod Cl (Potassium Chl 40 Meq In D5-1/2ns) 1,000 mls @ 80 mls/hr IV .[id number] JOSE Pantoprazole Sodium (Protonix Inj) 40 mg IVP DAILY JOSE Last Admin: 10/18/16 09:33 Dose: 40 mg Sucralfate (Carafate Oral Susp) 1 gm PO QID JOSE Last Admin: 10/18/16 17:37 Dose: 1 gm - Labs Labs: 10/16/16 07:54 10/18/16 06:30
--- NOTE | 2016-10-19 09:47 | US ---
HISTORY: N/V COMPARISON: None. TECHNIQUE: Grayscale imaging was performed. FINDINGS: LIVER: Measures 15.3 cm. Normal echogenicity of the liver parenchyma. No mass. No intrahepatic bile duct dilatation. GALLBLADDER: Unremarkable. No gallstones. COMMON BILE DUCT: Measures 1.6 mm. No stones. No dilatation. PANCREAS: Unremarkable as visualized. No mass. No ductal dilatation. RIGHT KIDNEY: Measures 9.8cm. Normal echogenicity. No calculus, mass, or hydronephrosis. LEFT KIDNEY: Measures 10.2cm. Normal echogenicity. No calculus, mass, or hydronephrosis. There is a 1.4 cm septated cyst in the lower pole. SPLEEN: Normal in size and contour. No mass. AORTA: No aneurysmal dilatation. IVC: Unremarkable. OTHER FINDINGS: None. IMPRESSION: No cholelithiasis or biliary dilatation. 1.4 cm septated cyst in the lower pole of the left kidney.
--- NOTE | 2016-10-20 10:46 | DS ---
The patient left against medical advice 10/18/2016. FINAL DIAGNOSIS: Gastroenteritis, improved. CONSULTANTS: Dr. Surya Weller from GI. SUMMARY: This 26-year-old female was admitted through the [facility] ER for nausea, vomi ting in the setting of clinical and radiographic gastroenteritis. She was treated with IV fluids, IV antibiotics, IV antacids and antinausea medication. She was seen in consultation by Dr. Surya pope. On the evening of 10/18, she left the hospital against medical advice and hopefully will return to the care of her primary care physician and her award machine operator as recommended. Aparna Rogers MD cc: [id number] TT: 10/20/2016 10:45:02 tn
== END 2016-10-18 21:29 | disposition left against medical advice (07) | DRG 392 ==
LOC: ED 11:36 → ERH 14:35 → 5RSO 18:16 → OBSVTOIN 21:17
PROVIDERS: ADMIT Internal Medicine; ATTEND Internal Medicine
DX: K52.9 Noninfective gastroenteritis and colitis, unspecified (principal); I10 Essential (primary) hypertension; N94.6 Dysmenorrhea, unspecified; E87.6 Hypokalemia; F12.90 Cannabis use, unspecified, uncomplicated; N94.3 Premenstrual tension syndrome; F17.200 Nicotine dependence, unspecified, uncomplicated; F41.1 Generalized anxiety disorder; F51.04 Psychophysiologic insomnia; J45.909 Unspecified asthma, uncomplicated; Z76.5 Malingerer [conscious simulation]; G47.00 Insomnia, unspecified

== ENCOUNTER 2016-11-28 18:07 | Emergency (ER) | payer OTHER ==
[2016-11-28 18:17] VITALS: RESP 18; TEMP 100.1; O2SAT 100; BMI 31.2
[2016-11-28] MEDS ORDERED: Sodium Chloride 0.9% 1,000 ML IV STA (18:23)
[2016-11-28 18:49] LABS: URINE BILIRUBIN NEGATIVE (NEGATIVE); URINE BLOOD NEGATIVE (NEGATIVE); URINE GLUCOSE (UA) NEGATIVE (NEGATIVE); URINE LEUKOCYTE ESTERASE NEGATIVE Leu/uL (NEGATIVE); URINE NITRATE NEGATIVE (NEGATIVE); URINE PROTEIN 30 mg/dL (<30 mg/dL); URINE UROBILINOGEN >=8.0 E.U./dL (<1 E.U./dL)
[2016-11-28 18:54] LABS: URINE COLOR YELLOW (YELLOW)
[2016-11-28 18:55] LABS: URINE APPEARANCE SL CLOUDY (CLEAR)
--- NOTE | 2016-11-28 18:56 | ED PDOC ---
Arrival/HPI - General Historian: Patient <Lebron Adam - Last Filed: 11/28/16 20:11> <Patrick Bell DO - Last Filed: 11/28/16 21:02> - General Chief Complaint: GI Problem Time Seen by Provider: 11/28/16 18:20 - History of Present Illness Narrative History of Present Illness (Text): 11/28/16 18:55 Pt is a 26 year old female with past medical history of gastritis complaining of nausea and vomiting for the past 2 weeks. She reports poor oral intake with only being able to tolerate fluids through out course. She indicates at this time she is only producing bile with her vomit. She denies blood in her vomit. Pt reports a 15 pound weight loss over the past two weeks due to not being able to tolerate food. Pt associated symptoms include diarrhea and abdominal pain left lower quadrant. Patient denies shortness of breath, chest pain with exertion, and palpitations. This patient has a history of these presenting symptoms with workup in the past. She was diagnosed with gastritis on previous admission. Patient was recently seen at [facility] emergency department on 11/25 for similar symptoms. She was told her diagnosis was gastritis and discharged and given antibiotics, Ativan and potassium chloride. Patient reports compliance and tolerates medication by mouth. (Lebron Adam) Past Medical History - Provider Review Nursing Documentation Reviewed: Yes - Infectious Disease Hx of Infectious Diseases: None - Past Medical History Past Medical History: No Previous - Cardiac Hx Cardiac Disorders: No - Pulmonary Hx Asthma: Yes - Neurological Hx Neurological Disorder: No - HEENT Hx HEENT Disorder: No - Renal Hx Renal Disorder: No Hx Kidney Stones: No - Endocrine/Metabolic Hx Endocrine Disorders: No - Hematological/Oncological Hx Blood Disorders: No - Integumentary Hx Dermatological Disorder: No - Musculoskeletal/Rheumatological Hx Musculoskeletal Disorders: No Hx Falls: No - Gastrointestinal Hx Gastritis: Yes - Genitourinary/Gynecological Hx Genitourinary Disorders: No - Psychiatric Hx Depression: No Hx Substance Use: No (denies today) - Past Surgical History Past Surgical History: No Previous - Anesthesia Hx Anesthesia: No - Suicidal Assessment Feels Threatened In Home Enviroment: No <Lebron Adam - Last Filed: 11/28/16 20:11> Family/Social History - Physician Review Nursing Documentation Reviewed: Yes Family/Social History: No Known Family HX Smoking Status: Never Smoked Hx Alcohol Use: Yes (Occasionally) Hx Substance Use: No (denies today) Substance used: marijuana Hx Substance Use Treatment: No <Lebron Adam - Last Filed: 11/28/16 20:11> Allergies/Home Meds <Lebron Adam - Last Filed: 11/28/16 20:11> <Patrick Bell DO - Last Filed: 11/28/16 21:02> Allergies/Adverse Reactions: Allergies No Known Allergies Allergy (Verified 11/28/16 18:17) Home Medications: Home Meds Medication Instructions Recorded Confirmed Ondansetron ODT [Zofran ODT] 0.4 mg SL Q4 PRN 11/28/16 11/28/16 Review of Systems - Review of Systems Constitutional: Fatigue, Weight Change, Other (chills) Eyes: Vision Changes ENT: absent: Hearing Changes <Lebron Adam - Last Filed: 11/28/16 20:11> Physical Exam Vital Signs Reviewed: Yes Temperature: Afebrile Pulse: Regular Respiratory Rate: Normal Appearance: Positive for: Well-Appearing Pain Distress: Moderate Mental Status: Positive for: Alert and Oriented X 3 - Systems Exam Head: Present: Atraumatic, Normocephalic Pupils: Present: PERRL Extroacular Muscles: Present: EOMI Conjunctiva: Present: Normal Mouth: Present: Dry Neck: Present: Normal Range of Motion Respiratory/Chest: Present: Clear to Auscultation, Good Air Exchange. No: Respiratory Distress, Accessory Muscle Use Cardiovascular: Present: Regular Rate and Rhythm, Normal S1, S2. No: Murmurs Abdomen: Present: Tenderness (LLQ), Guarding (LLQ with palpation). No: Distention, Normal Bowel Sounds, Peritoneal Signs, McBurney's Point Tender Upper Extremity: Present: Normal Inspection. No: Cyanosis, Edema Lower Extremity: Present: Normal Inspection. No: Edema Neurological: Present: GCS=15, CN II-XII Intact, Speech Normal Skin: Present: Warm, Dry, Normal Color. No: Rashes Psychiatric: Present: Alert, Oriented x 3, Anxious <Lebron Adam - Last Filed: 11/28/16 20:11> Medical Decision Making - Lab Interpretations I have reviewed the lab results: Yes <Lebron Adam - Last Filed: 11/28/16 20:11> <Patrick Bell DO - Last Filed: 11/28/16 21:02> ED Course and Treatment: 11/28/16 19:58 Impression: Pt is a 26 year old female with past medical history significant for gastritis who presents to the emergency department with nausea and vomiting for the past 2 weeks. Differential Diagnosis included but are not limited to: - gastroenteritis - intractable vomiting Plan: - Labs: CBC, CMP, Lipase, Urinalysis, - Meds: Zofran, Pepcid, IVF, - Reassess and disposition Progress Notes: @ 17:45 - Patient noted to be asleep in bed 11/28/16 20:30 - Tylenol for headache - Discussed with patient the need to follow up outpatient for her symptoms and she is agreeable (Lebron Adam) 11/28/16 21:01 Patient Seen With Resident: In agreement with resident note which contains more details about the patient. Patient was seen and evaluated with resident. Came up with plan and treatment together. (Patrick Bell DO) - Lab Interpretations Lab Results: 11/28/16 19:00 11/28/16 19:00 Lab Results 11/28/16 19:00: Sodium 137, Potassium 3.2 L, Chloride 100, Carbon Dioxide 24, Anion Gap 16, BUN 3 L, Creatinine 0.7, Est GFR ( Amer) > 60, Est GFR (Non -Af Amer) > 60, Random Glucose 83, Calcium 9.2, Total Bilirubin 1.5 H, AST 30, ALT 23, Alkaline Phosphatase 46, Total Protein 7.8, Albumin 4.3, Globulin 3.5, Albumin/Globulin Ratio 1.2, Lipase 62 11/28/16 19:00: WBC 6.2, RBC 4.38, Hgb 13.0, Hct 38.1, MCV 87.0, MCH 29.7, MCHC 34.1, RDW 12.9, Plt Count 268, MPV 12.1 H, Gran % 60.2, Lymph % (Auto) 29.2, [place] % (Auto) 9.9 H, Eos % (Auto) 0.5 L, Baso % (Auto) 0.2, Gran # 3.71, Lymph # 1.8, [place] # 0.6, Eos # 0.0, Baso # 0.01 11/28/16 18:30: Urine Color Yellow, Urine Appearance Sl cloudy, Urine pH 7.0, Ur Specific [place] 1.015, Urine Protein 30 H, Urine Glucose (UA) Negative, Urine Ketones >=80, Urine Blood Negative, Urine Nitrate Negative, Urine Bilirubin Negative, Urine Urobilinogen >=8.0, Ur Leukocyte Esterase Negative, Urine RBC Negative, Urine WBC 2 - 5, Ur Epithelial Cells 6 - 8, Urine Bacteria Mod - Medication Orders Current Medication Orders: Discontinued Medications Famotidine (Pepcid) 20 mg IVP STAT STA Stop: 11/28/16 18:24 Last Admin: 11/28/16 19:17 Dose: 20 mg Sodium Chloride (Sodium Chloride 0.9%) 1,000 mls @ 1,000 mls/hr IV .Q1H STA Stop: 11/28/16 19:22 Last Admin: 11/28/16 19:17 Dose: 1,000 mls/hr Ondansetron HCl (Zofran Inj) 4 mg IVP STAT STA Stop: 11/28/16 18:24 Last Admin: 11/28/16 19:17 Dose: 4 mg Potassium Chloride (K-Dur 20 Meq Er Tab) 40 meq PO STAT STA Stop: 11/28/16 20:15 - PA / RETAIL INVENTORY CONTROL CLERK / Resident Statement CLARISA has reviewed & agrees with the documentation as recorded. CLARISA has examined the patient and agrees with the treatment plan. <Lebron Adam - Last Filed: 11/28/16 20:11> - Scribe Statement The provider has reviewed the documentation as recorded by the Scribe <Patrick Bell DO - Last Filed: 11/28/16 21:02> - Scribe Statement 11/28/2016 Lisha Andrews Provider Scribe Attestation: All medical record entries made by the Scribe were at my direction and personally dictated by me. I have reviewed the chart and agree that the record accurately reflects my personal performance of the history, physical exam, medical decision making, and the department course for this patient. I have also personally directed, reviewed, and agree with the discharge instructions and disposition. (Patrick Bell DO) Disposition/Present on Arrival - Present on Arrival Any Indicators Present on Arrival: No History of DVT/PE: No History of Uncontrolled Diabetes: No Urinary Catheter: No History of Decub. Ulcer: No History Surgical Site Infection Following: None - Disposition Have Diagnosis and Disposition been Completed?: Yes Disposition Time: 19:40 Patient Plan: Discharge <Lebron Adam - Last Filed: 11/28/16 20:11> <Patrick Bell DO - Last Filed: 11/28/16 21:02> - Disposition Diagnosis: Gastritis, Vomiting Disposition: HOME/ ROUTINE Patient Problems: Current Active Problems Problem Status Onset Gastritis Acute Vomiting Acute Condition: STABLE Discharge Instructions (ExitCare): Gastritis (GEN) Forms: [employer] (Ecuadorean)
[2016-11-28 19:00] LABS: URINE BACTERIA MOD (NEG); URINE RBC NEGATIVE /hpf (0-2)
[2016-11-28 19:27] LABS: BASO # 0.01 K/mm3 (0.0-2.0); BASO % 0.2 % (0.0-3.0); EOS % 0.5 % (1.5-5.0); GRAN # 3.71 (1.4-6.5); GRAN % 60.2 % (50.0-68.0); LYMPH # 1.8 (1.2-3.4); LYMPH % 29.2 % (22.0-35.0); MEAN CORPUSCULAR HEMOGLOBIN 29.7 pg (25.0-35.0); MEAN CORPUSCULAR HGB CONC 34.1 g/dl (31.0-37.0); MEAN PLATELET VOLUME 12.1 fl (7.0-11.0); MONO # 0.6 (0.1-0.6); MONO % 9.9 % (1.0-6.0); PLATELET COUNT 268 10^3/uL (120.0-450.0); RBC 4.38 10^6/uL (3.5-6.1); RED CELL DISTRIBUTION WIDTH 12.9 % (11.5-14.5); WHITE BLOOD COUNT 6.2 10^3/ul (4.5-11.0)
[2016-11-28 19:29] LABS: ALB/GLOB RATIO 1.2 (1.1-1.8); ALBUMIN 4.3 g/dL (3.0-4.8); ALT/SGPT 23 U/L (7-56); AST/SGOT 30 U/L (15-39); BLOOD UREA NITROGEN 3 mg/dL (7-21); CALCIUM 9.2 mg/dL (8.4-10.5); GFR AFRICAN-AMERICAN > 60; GFR NON-AFRICAN AMERICAN > 60; LIPASE 62 U/L (23-300)
[2016-11-28] MEDS ORDERED: Potassium Chloride 20 mEq ER Tab PO STA (20:14)
[2016-11-28 21:01] VITALS: BP 118/70; PULSE 74
== END 2016-11-28 21:06 | disposition home or self-care (01) ==
LOC: ED 18:07
DX: K29.70 Gastritis, unspecified, without bleeding (principal); R11.10 Vomiting, unspecified
CPT/HCPCS: 80053; 81001; 83690; 85025; 87086; 96361; 96374; 96375; 99285; J2405; J7040

== ENCOUNTER 2016-12-21 14:08 | Emergency (ER) | payer OTHER ==
[2016-12-21 14:09] VITALS: BMI 31.2
--- NOTE | 2016-12-21 14:42 | ED PDOC ---
Arrival/HPI - General Historian: Patient <Patricia Jarvis - Last Filed: 12/21/16 16:21> - History of Present Illness Time/Duration: 4-6 hours Symptom Onset: Sudden Symptom Course: Unchanged Quality: Throbbing Severity Level: 4 Activities at Onset: Rest Context: Sitting <Josiah Thorne - Last Filed: 12/21/16 16:33> - General Time Seen by Provider: 12/21/16 14:11 - History of Present Illness Narrative History of Present Illness (Text): 12/21/16 14:38 This is a 26 yr old female with a significant past medical history of gastritis who comes into [facility] who complains of an allergic reaction after taking her medicine Reglan for her nausea that she was prescribed the last time she was in the Emergency Department (12/2016). Per the patient she was sitting at home when she started to complain of stiffness and swelling throughout her entire body. She also reports getting cramps in her mouth as well. She reports taking a Benadryl at home with some relief in the symptoms. She denies any chest pain, shortness of breath, nausea, vomiting, lightheadedness, weakness, changes in vision, or any other complaints. (Josiah Thorne) Past Medical History - Provider Review Nursing Documentation Reviewed: Yes - Infectious Disease Hx of Infectious Diseases: None - Past Medical History Past Medical History: No Previous - Cardiac Hx Cardiac Disorders: No - Pulmonary Hx Respiratory Disorders: Yes Hx Asthma: Yes - Neurological Hx Neurological Disorder: No - HEENT Hx HEENT Disorder: No - Renal Hx Renal Disorder: No Hx Kidney Stones: No - Endocrine/Metabolic Hx Endocrine Disorders: No - Hematological/Oncological Hx Blood Disorders: No - Integumentary Hx Dermatological Disorder: No - Musculoskeletal/Rheumatological Hx Musculoskeletal Disorders: No Hx Falls: No - Gastrointestinal Hx Gastrointestinal Disorders: Yes Hx Gastritis: Yes - Genitourinary/Gynecological Hx Genitourinary Disorders: No - Psychiatric Hx Psychophysiologic Disorder: No Hx Substance Use: No (pt denies any use of substance) - Past Surgical History Past Surgical History: No Previous - Anesthesia Hx Anesthesia: No - Suicidal Assessment Feels Threatened In Home Enviroment: No <Josiah Thorne - Last Filed: 12/21/16 16:33> Family/Social History Family/Social History: No Known Family HX <Patricia Jarvis - Last Filed: 12/21/16 16:21> - Physician Review Nursing Documentation Reviewed: Yes Smoking Status: Never Smoked Hx Alcohol Use: Yes (occasionally) Hx Substance Use: No (pt denies any use of substance) Substance used: marijuana Hx Substance Use Treatment: No <Josiah Thorne - Last Filed: 12/21/16 16:33> Allergies/Home Meds <Patricia Jarvis - Last Filed: 12/21/16 16:21> <Josiah Thorne - Last Filed: 12/21/16 16:33> Allergies/Adverse Reactions: Allergies No Known Allergies Allergy (Verified 11/29/16 18:45) Review of Systems - Physician Review All systems were reviewed & negative as marked: Yes - Review of Systems Constitutional: Normal. absent: Fevers, Night Sweats Eyes: Normal. absent: Vision Changes, Eye Pain ENT: Normal. absent: Hearing Changes, Rhinorrhea, Epistaxis, Sinus Congestion Respiratory: Normal. absent: SOB, Cough, Wheezing Cardiovascular: Normal. absent: Chest Pain, Palpitations, Edema Gastrointestinal: Normal. absent: Abdominal Pain, Constipation, Diarrhea, Nausea, Vomiting Genitourinary Female: Normal. absent: Frequency, Hematuria Skin: Normal. absent: Skin Lesions, Laceration, Abscess Neurological: Normal. absent: Headache, Dizziness, Speech Changes, Facial Droop Endocrine: Normal. absent: Diaphoresis, Polyuria, Polydipsia <Josiah Thorne - Last Filed: 12/21/16 16:33> Physical Exam Vital Signs Reviewed: Yes Temperature: Afebrile Blood Pressure: Normal Pulse: Tachycardic Respiratory Rate: Normal Appearance: Positive for: Well-Appearing, Non-Toxic, Comfortable Pain Distress: None Mental Status: Positive for: Alert and Oriented X 3 - Systems Exam Head: Present: Atraumatic, Normocephalic Pupils: Present: PERRL. No: Non-Reactive Extroacular Muscles: Present: EOMI. No: Gaze Palsy Conjunctiva: Present: Normal. No: Injected, Icteric Mouth: Present: Moist Mucous Membranes, Drooling. No: Dry Neck: Present: Normal Range of Motion. No: JVD, Lymphadenopathy Respiratory/Chest: Present: Clear to Auscultation, Good Air Exchange. No: Respiratory Distress, Accessory Muscle Use, Wheezes Cardiovascular: Present: Regular Rate and Rhythm, Normal S1, S2. No: Murmurs Abdomen: Present: Normal Bowel Sounds. No: Tenderness, Distention Upper Extremity: Present: Normal Inspection. No: Cyanosis, Edema Lower Extremity: Present: Normal Inspection. No: Edema Neurological: Present: CN II-XII Intact, Speech Normal Skin: Present: Dry, Normal Color. No: Warm, Rashes Psychiatric: Present: Alert, Oriented x 3, Normal Insight <Josiah Thorne - Last Filed: 12/21/16 16:33> Vital Signs Temp Pulse Resp BP Pulse Ox 12/21/16 16:25 96 H 16 128/73 100 12/21/16 15:31 100 H 18 118/69 100 12/21/16 14:58 98.5 F 130 H 18 121/72 100 Medical Decision Making <Patricia Jarvis - Last Filed: 12/21/16 16:21> <Josiah Thorne - Last Filed: 12/21/16 16:33> ED Course and Treatment: 12/21/16 15:30 Patient seen and examined with resident; agree with treatment and plan. Patient developed symptoms of jaw locking and stiffness after taking reglan; she took a benadryl for a possible allergic reaction and reports mild improvement. Patient's symptoms are consistent with EPS symptoms; normal exam here. Given an additional dose of benadryl and feeling resolution - will have her d/c reglan and use zofran PRN and follow up pmd. Will d/c her on benadryl. (Patricia Jarvis) 12/21/16 14:46 This patient came into [facility] complaining of an allergic reaction. The patient was given IV steroids, Pepcid, and Benadryl. Patient will be re-evaluated when after receiving the medications. Patient reports feeling better after receiving the medications. Patient was re-evaluated again and she reports feeling better. Her her heart rate has come down to 102. (Josiah Thorne) - Medication Orders Current Medication Orders: Discontinued Medications Diphenhydramine HCl (Benadryl) 25 mg IVP STAT STA Stop: 12/21/16 14:56 Last Admin: 12/21/16 15:20 Dose: 25 mg Famotidine (Pepcid) 20 mg IVP STAT STA Stop: 12/21/16 15:03 Last Admin: 12/21/16 15:20 Dose: 20 mg Sodium Chloride (Sodium Chloride 0.9%) 500 mls @ 999 mls/hr IV .Q31M STA Stop: 12/21/16 15:59 Last Admin: 12/21/16 15:42 Dose: 999 mls/hr Methylprednisolone (Solu-Medrol) 125 mg IVP STAT STA Stop: 12/21/16 14:57 Last Admin: 12/21/16 15:19 Dose: 125 mg - PA / DOG GROOMER / Resident Statement MD/DO has reviewed & agrees with the documentation as recorded. MD/DO has examined the patient and agrees with the treatment plan. - Scribe Statement The provider has reviewed the documentation as recorded by the Scribe <Patricia Jarvis - Last Filed: 12/21/16 16:21> <Josiah Thorne - Last Filed: 12/21/16 16:33> - Scribe Statement Alicia Mejía Provider Scribe Attestation: All medical record entries made by the Scribe were at my direction and personally dictated by me. I have reviewed the chart and agree that the record accurately reflects my personal performance of the history, physical exam, medical decision making, and the department course for this patient. I have also personally directed, reviewed, and agree with the discharge instructions and disposition. (Patricia Jarvis) Disposition/Present on Arrival <Patricia Jarvis - Last Filed: 12/21/16 16:21> - Present on Arrival Any Indicators Present on Arrival: No History of DVT/PE: No History of Uncontrolled Diabetes: No Urinary Catheter: No History Surgical Site Infection Following: None - Disposition Have Diagnosis and Disposition been Completed?: Yes Disposition Time: 16:15 Patient Plan: Discharge <Josiah Thorne - Last Filed: 12/21/16 16:33> - Disposition Diagnosis: Acute dystonic reaction due to drugs Disposition: HOME/ ROUTINE Patient Problems: Current Active Problems Problem Status Onset Acute dystonic reaction due to drugs Acute Condition: GOOD Discharge Instructions (ExitCare): Extrapyramidal Symptoms (ED) Additional Instructions: Discontinue Reglan. Use Zofran PRN for nausea/vomiting. Drink plenty of fluids. Take Benadryl every 6-8 hours as needed for any dystonic reactions. F/U with PMD. And return to E.D. if any new or concerning symptoms. Prescriptions: Ondansetron ODT [Zofran ODT] 4 mg PO Q8 PRN #10 odt PRN Reason: Nausea/Vomiting Referrals: Inocencio Parra, [Primary Care Provider] - Follow up with primary
[2016-12-21] MEDS ORDERED: DiphenhydrAMINE 50 mg/ml Inj IVP STA (14:55)
[2016-12-21 14:59] VITALS: TEMP 98.5; O2SAT 100
[2016-12-21] MEDS ORDERED: Sodium Chloride 0.9% 500 ML IV STA (15:29)
[2016-12-21 16:26] VITALS: BP 128/73; PULSE 96; RESP 16
--- NOTE | 2016-12-21 21:34 | CARD ---
APPROVED REPORT EKG Measurement Heart [id number] <Conclusion> Sinus tachycardia Nonspecific T wave abnormality Abnormal ECG
== END 2016-12-21 16:36 | disposition home or self-care (01) ==
LOC: ED 14:08
DX: G24.02 Drug induced acute dystonia (principal); T45.0X5A Adverse effect of antiallergic and antiemetic drugs, initial encounter; Y92.89 Other specified places as the place of occurrence of the external cause
CPT/HCPCS: 84702; 93005; 96374; 96375; 99284; J1200; J2930; J7040

== ENCOUNTER 2017-06-15 01:29 | Emergency (ER) | payer OTHER ==
[2017-06-15 01:30] VITALS: BMI 31.2
[2017-06-15 01:51] VITALS: BP 107/73; PULSE 113; RESP 26; TEMP 98.8; O2SAT 98
--- NOTE | 2017-06-15 02:06 | ED PDOC ---
Arrival/HPI - General Chief Complaint: Cough, Cold, Congestion Time Seen by Provider: 06/15/17 01:57 Historian: Patient - History of Present Illness Narrative History of Present Illness (Text): 06/15/17 02:05 Nicole Branch is a 27 year old female, whose past medical history includes asthma , who presents to the Emergency department complaining of cold-like symptoms and shortness of breath. Patient states she has been experiencing productive cough, with greenish sputum at times, and sore throat since yesterday. Patient also reports shortness of breath and wheezing, which she reports is consistent with previous episodes of asthma. Patient denies any fever, chills, chest pain, shortness of breath, nausea, vomiting, diarrhea, urinary symptoms, back pain, neck pain, headache, dizziness, or any other complaints. Patient denies any chills, chest pain, nausea, vomiting, back pain, neck pain, headache, dizziness , or any other complaints. Symptom Onset: Gradual Symptom Course: Unchanged Activities at Onset: Light Context: Home Past Medical History - Provider Review Nursing Documentation Reviewed: Yes - Infectious Disease Hx of Infectious Diseases: None - Past Medical History Past Medical History: No Previous - Cardiac Hx Cardiac Disorders: No - Pulmonary Hx Respiratory Disorders: Yes Hx Asthma: Yes - Neurological Hx Neurological Disorder: No - HEENT Hx HEENT Disorder: No - Renal Hx Renal Disorder: No Hx Kidney Stones: No - Endocrine/Metabolic Hx Endocrine Disorders: No - Hematological/Oncological Hx Blood Disorders: No - Integumentary Hx Dermatological Disorder: No - Musculoskeletal/Rheumatological Hx Musculoskeletal Disorders: No Hx Falls: No - Gastrointestinal Hx Gastrointestinal Disorders: Yes Hx Gastritis: Yes - Genitourinary/Gynecological Hx Genitourinary Disorders: No - Psychiatric Hx Psychophysiologic Disorder: No Hx Substance Use: No (pt denies any use of substance) - Past Surgical History Past Surgical History: No Previous - Anesthesia Hx Anesthesia: No - Suicidal Assessment Feels Threatened In Home Enviroment: No Family/Social History - Physician Review Nursing Documentation Reviewed: Yes Family/Social History: Unknown Family HX Smoking Status: Never Smoked Hx Alcohol Use: Yes (occasionally) Hx Substance Use: No (pt denies any use of substance) Substance used: marijuana Hx Substance Use Treatment: No Allergies/Home Meds Allergies/Adverse Reactions: Allergies No Known Allergies Allergy (Verified 06/15/17 01:47) Home Medications: Home Meds Medication Instructions Recorded Confirmed Albuterol HFA [Ventolin HFA 90 2 puff IH PRN PRN 06/15/17 06/15/17 mcg/actuation (8 g)] Review of Systems - Physician Review All systems were reviewed & negative as marked: Yes - Review of Systems Constitutional: Normal. absent: Fevers Eyes: Normal ENT: Sore Throat Respiratory: SOB, Cough, Sputum, Wheezing Cardiovascular: Normal. absent: Chest Pain Gastrointestinal: Normal. absent: Abdominal Pain, Diarrhea, Nausea, Vomiting Genitourinary Female: Normal. absent: Dysuria, Frequency, Hematuria, Urine Output Changes Musculoskeletal: Normal. absent: Back Pain, Neck Pain Skin: Normal. absent: Rash Neurological: Normal. absent: Headache, Dizziness Endocrine: Normal Hemo/Lymphatic: Normal Psychiatric: Normal Physical Exam Vital Signs Reviewed: Yes Vital Signs Temp Pulse Resp BP Pulse Ox 06/15/17 01:48 98.8 F 113 H 26 H 107/73 98 Temperature: Afebrile Blood Pressure: Normal Pulse: Regular Respiratory Rate: Normal Appearance: Positive for: Well-Appearing, Non-Toxic, Comfortable Pain Distress: None Mental Status: Positive for: Alert and Oriented X 3 - Systems Exam Head: Present: Atraumatic, Normocephalic Pupils: Present: PERRL Extroacular Muscles: Present: EOMI Conjunctiva: Present: Normal Mouth: Present: Moist Mucous Membranes Neck: Present: Normal Range of Motion Respiratory/Chest: Present: Wheezes (Diffuse wheezing). No: Respiratory Distress, Accessory Muscle Use Cardiovascular: Present: Regular Rate and Rhythm, Normal S1, S2. No: Murmurs Abdomen: Present: Normal Bowel Sounds. No: Tenderness, Distention, Peritoneal Signs Back: Present: Normal Inspection Upper Extremity: Present: Normal Inspection. No: Cyanosis, Edema Lower Extremity: Present: Normal Inspection. No: Edema Neurological: Present: GCS=15, CN II-XII Intact, Speech Normal Skin: Present: Warm, Dry, Normal Color. No: Rashes Psychiatric: Present: Alert, Oriented x 3, Normal Insight, Normal Concentration Medical Decision Making ED Course and Treatment: 06/15/17 02:05 Impression: 27 year old female complaining of cold-like symptoms, productive cough, sore throat, shortness of breath, and wheezign. Plan: -- Chest X-ray -- Labs -- Urinalysis -- Rapid influenza -- Duoneb -- Solu-medrol -- Reassess and disposition Progress Notes: 06/15/17 04:05 Chest X-ray reviewed, shows no acute processes. 06/15/17 04:49 Labs noted, negative influenza. On re-evaluation, wheezing improved but persistent. Pt was offered admission for further observation of symptoms but pt declined admission at this time. States she will return if she develops any new or worsening symptoms. Patient in agreement with plan to be discharged home. Patient is stable for discharge. Patient was instructed to follow up with physician or return if symptoms worsen or new concerning symptoms arise. - Lab Interpretations Lab Results: 06/15/17 02:25 06/15/17 02:25 Lab Results 06/15/17 03:53: Influenza Typ A,B (EIA) Negative for flu a/b 06/15/17 02:41: Urine HCG, Qual Negative 06/15/17 02:25: Sodium 141, Potassium 3.5 L, Chloride 107, Carbon Dioxide 22, Anion Gap 15, BUN 9, Creatinine 0.9, Est GFR ( Amer) > 60, Est GFR (Non- Af Amer) > 60, Random Glucose 93, Calcium 9.2, Total Bilirubin 0.3, AST 34, ALT 24, Alkaline Phosphatase 46, Total Protein 7.3, Albumin 4.0, Globulin 3.3, Albumin/Globulin Ratio 1.2 06/15/17 02:25: PT 11.4, INR 1.00, APTT 27.6 06/15/17 02:25: WBC 7.3, RBC 4.23, Hgb 12.2, Hct 37.2, MCV 87.9, MCH 28.8, MCHC 32.8, RDW 14.4, Plt Count 257, MPV 10.8, Gran % 61.3, Lymph % (Auto) 26.6, [place] % (Auto) 7.0 H, Eos % (Auto) 4.8, Baso % (Auto) 0.3, Gran # 4.48, Lymph # (Auto ) 1.9, [place] # (Auto) 0.5, Eos # (Auto) 0.4, Baso # (Auto) 0.02 I have reviewed the lab results: Yes - RAD Interpretation Radiology Orders: 06/15/17 02:05 CHEST 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 [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 Physician - Medication Orders Current Medication Orders: Discontinued Medications Albuterol/Ipratropium (Duoneb 3 Mg/0.5 Mg (3 Ml) Ud) 3 ml IH Q15M JOSE Stop: 06/15/17 02:46 Last Admin: 06/15/17 02:50 Dose: 3 ml Methylprednisolone (Solu-Medrol) 125 mg IVP STAT STA Stop: 06/15/17 02:07 Last Admin: 06/15/17 02:06 Dose: 125 mg IVP Administration Document 06/15/17 02:06 SS (Rec: 06/15/17 02:47 SS [id number]) Charges for Administration # of IVP Administrations 1 - Scribe Statement The provider has reviewed the documentation as recorded by the Mitul Marie Provider Scribe Attestation: All medical record entries made by the Scribe were at my direction and personally dictated by me. I have reviewed the chart and agree that the record accurately reflects my personal performance of the history, physical exam, medical decision making, and the department course for this patient. I have also personally directed, reviewed, and agree with the discharge instructions and disposition.' Disposition/Present on Arrival - Present on Arrival Any Indicators Present on Arrival: No History of DVT/PE: No History of Uncontrolled Diabetes: No Urinary Catheter: No History of Decub. Ulcer: No History Surgical Site Infection Following: None - Disposition Have Diagnosis and Disposition been Completed?: Yes Diagnosis: Asthma Disposition: HOME/ ROUTINE Disposition Time: 04:51 Condition: STABLE Discharge Instructions (ExitCare): Asthma (ED), How to Use a Nebulizer (ED) Additional Instructions: you are declining further observation in the hospital you are able to return to er with any worsening symptoms or concerns. Prescriptions: Albuterol HFA [Ventolin HFA 90 mcg/actuation (8 g)] 2 puff IH [id number] PRN #1 puff PRN Reason: Wheezing Albuterol 0.083% [Albuterol 0.083% Inhal Mariela (2.5 mg/3 ml) UD] 2.5 mg IH Q4 PRN #20 neb PRN Reason: Wheezing PrednisoLONE [PrednisoLONE Oral Soln] 50 mg PO DAILY #1 dose Referrals: [facility] [Outside] - Follow up with primary [facility] [place] - Follow up with primary Forms: [employer] (Slovak)
[2017-06-15] MEDS: Albuterol-Ipratrop 3 mg / 0.5 (3 ml) UD IH SCH ×3 (02:15→02:50)
[2017-06-15 02:55] LABS: BASO # 0.02 K/mm3 (0.0-2.0); BASO % 0.3 % (0.0-3.0); EOS # 0.4 (0.0-0.7); EOS % 4.8 % (1.5-5.0); GRAN # 4.48 (1.4-6.5); GRAN % 61.3 % (50.0-68.0); HEMOGLOBIN 12.2 g/dL (12.0-16.0); LYMPH # 1.9 (1.2-3.4); LYMPH % 26.6 % (22.0-35.0); MEAN CELL VOLUME 87.9 fl (80.0-105.0); MEAN CORPUSCULAR HEMOGLOBIN 28.8 pg (25.0-35.0); MEAN CORPUSCULAR HGB CONC 32.8 g/dl (31.0-37.0); MEAN PLATELET VOLUME 10.8 fl (7.0-11.0); MONO # 0.5 (0.1-0.6); RBC 4.23 10^6/uL (3.5-6.1); RED CELL DISTRIBUTION WIDTH 14.4 % (11.5-14.5); WHITE BLOOD COUNT 7.3 10^3/ul (4.5-11.0)
[2017-06-15 03:11] LABS: ALB/GLOB RATIO 1.2 (1.1-1.8)
[2017-06-15 03:19] LABS: PARTIAL THROMBOPLASTIN TIME 27.6 Seconds (25.1-36.5); PROTHROMBIN TIME 11.4 SECONDS (9.4-12.5)
[2017-06-15 03:21] LABS: ALT/SGPT 24 U/L (7-56); AST/SGOT 34 U/L (14-36); BLOOD UREA NITROGEN 9 mg/dL (7-21); CALCIUM 9.2 mg/dL (8.4-10.5); GFR AFRICAN-AMERICAN > 60; GFR NON-AFRICAN AMERICAN > 60
--- NOTE | 2017-06-15 09:35 | RAD ---
HISTORY: cough COMPARISON: No prior. FINDINGS: LUNGS: No active pulmonary disease. PLEURA: No significant pleural effusion identified, no pneumothorax apparent. CARDIOVASCULAR: Normal. OSSEOUS STRUCTURES: No significant abnormalities. VISUALIZED UPPER ABDOMEN: Normal. OTHER FINDINGS: None. IMPRESSION: No active disease.
== END 2017-06-15 05:00 | disposition home or self-care (01) ==
LOC: ED 01:29
DX: J45.909 Unspecified asthma, uncomplicated (principal)
CPT/HCPCS: 71045; 80053; 84703; 85025; 85610; 85730; 87804; 96374; 99283; J2930

== ENCOUNTER 2017-07-21 00:36 | Emergency (ER) | payer OTHER ==
[2017-07-21 00:37] VITALS: BMI 31.2
[2017-07-21 00:52] VITALS: TEMP 98.2; O2SAT 99
[2017-07-21] MEDS ORDERED: Sodium Chloride 0.9% 1,000 ML IV STA (01:20)
--- NOTE | 2017-07-21 01:34 | ED PDOC ---
Arrival/HPI - General Chief Complaint: Abdominal Pain Time Seen by Provider: 07/21/17 01:19 - History of Present Illness Narrative History of Present Illness (Text): 07/21/17 01:30 patient is a 27F with a PMH of gastritis and multiple admissions for vomiting comes to the ED with a CC of vomiting and belly pain since 9am. She states she has not been able to tolerate any fluids since that time. She is also complaining of headache, body aches and chills. Denies any diarrhea, constipation, no blood in vomit, no chest pain or SOB. Denies any sick contacts. Denies any dysuria or blood in urine. Patient states she is currently on her period. (Patrick Beltre) Past Medical History - Infectious Disease Hx of Infectious Diseases: None - Past Medical History Past Medical History: No Previous - Cardiac Hx Cardiac Disorders: No - Pulmonary Hx Respiratory Disorders: Yes Hx Asthma: Yes - Neurological Hx Neurological Disorder: No - HEENT Hx HEENT Disorder: No - Renal Hx Renal Disorder: No Hx Kidney Stones: No - Endocrine/Metabolic Hx Endocrine Disorders: No - Hematological/Oncological Hx Blood Disorders: No - Integumentary Hx Dermatological Disorder: No - Musculoskeletal/Rheumatological Hx Musculoskeletal Disorders: No Hx Falls: No - Gastrointestinal Hx Gastrointestinal Disorders: Yes Hx Gastritis: Yes - Genitourinary/Gynecological Hx Genitourinary Disorders: No - Psychiatric Hx Psychophysiologic Disorder: No Hx Substance Use: No (pt denies any use of substance) - Past Surgical History Past Surgical History: No Previous - Anesthesia Hx Anesthesia: No - Suicidal Assessment Feels Threatened In Home Enviroment: No Family/Social History Family/Social History: No Known Family HX Smoking Status: Never Smoked Hx Alcohol Use: Yes (occasionally) Hx Substance Use: No (pt denies any use of substance) Substance used: marijuana Hx Substance Use Treatment: No Allergies/Home Meds Allergies/Adverse Reactions: Allergies No Known Allergies Allergy (Verified 06/15/17 01:47) Home Medications: Home Meds Medication Instructions Recorded Confirmed Albuterol HFA [Ventolin HFA 90 2 puff IH PRN PRN 06/15/17 07/21/17 mcg/actuation (8 g)] Review of Systems - Review of Systems Constitutional: Normal Eyes: Normal ENT: Normal Respiratory: Cough Cardiovascular: Normal Gastrointestinal: Abdominal Pain, Vomiting Genitourinary Female: Normal Musculoskeletal: Normal Skin: Normal Neurological: Normal Endocrine: Normal Hemo/Lymphatic: Normal Psychiatric: Normal Physical Exam Temperature: Afebrile Blood Pressure: Normal Pulse: Regular Respiratory Rate: Normal Appearance: Positive for: Well-Appearing, Non-Toxic Pain Distress: None Mental Status: Positive for: Alert and Oriented X 3 - Systems Exam Head: Present: Atraumatic, Normocephalic Pupils: Present: PERRL Extroacular Muscles: Present: EOMI Conjunctiva: Present: Normal Mouth: Present: Moist Mucous Membranes Neck: Present: Normal Range of Motion Respiratory/Chest: Present: Clear to Auscultation, Good Air Exchange. No: Respiratory Distress, Accessory Muscle Use Cardiovascular: Present: Regular Rate and Rhythm, Normal S1, S2. No: Murmurs Abdomen: Present: Tenderness (diffuse tenderness in all four quadrants, voluntary guarding), Normal Bowel Sounds. No: Distention, Peritoneal Signs, Rebound, Guarding, McBurney's Point Tender, Rovsing's Sign Present, Hernias, Feeding Tubes, Ostomy Tubes, Mass/Organomegaly, Scars Upper Extremity: Present: Normal Inspection Lower Extremity: Present: Normal Inspection Neurological: Present: GCS=15, CN II-XII Intact Skin: Present: Warm, Normal Color. No: Dry, Rashes Psychiatric: Present: Alert, Oriented x 3 Vital Signs Temp Pulse Resp BP Pulse Ox 07/21/17 03:34 92 H 16 130/70 99 07/21/17 00:51 98.2 F 78 18 132/74 99 Medical Decision Making ED Course and Treatment: Patient Seen With Resident: In agreement with resident note which contains more details about the patient. Patient was seen and evaluated with resident. Came up with plan and treatment together. (Grabiel Whittaker) - Lab Interpretations Lab Results: 07/21/17 01:55 07/21/17 04:15 Lab Results 07/21/17 04:15: Sodium 146, Potassium 3.6, Chloride 111 H, Carbon Dioxide 18 L, Anion Gap 21 H, BUN 12, Creatinine 0.8, Est GFR ( Amer) > 60, Est GFR ( Non-Af Amer) > 60, Random Glucose 104, Calcium 9.6, Total Bilirubin 0.9, AST 24 , ALT 22, Alkaline Phosphatase 75, Total Protein 8.8 H, Albumin 4.8, Globulin 3.9, Albumin/Globulin Ratio 1.2, Amylase 136 H, Lipase 57 07/21/17 04:15: PT 12.9 H, INR 1.13 H, APTT 27.0 07/21/17 01:55: WBC 7.8, RBC 4.92, Hgb 14.5 D, Hct 43.5, MCV 88.4, MCH 29.5, MCHC 33.3, RDW 13.8, Plt Count 275, MPV 11.8 H, Gran % 71.8 H, Lymph % (Auto) 21.3 L, [place] % (Auto) 6.0, Eos % (Auto) 0.6 L, Baso % (Auto) 0.3, Gran # 5.61, Lymph # (Auto) 1.7, [place] # (Auto) 0.5, Eos # (Auto) 0.1, Baso # (Auto) 0.02 - Medication Orders Current Medication Orders: Discontinued Medications Famotidine (Pepcid) 20 mg IVP STAT STA Stop: 07/21/17 01:21 Last Admin: 07/21/17 01:56 Dose: 20 mg IVP Administration Document 07/21/17 01:56 MS (Rec: 07/21/17 01:57 MS [id number]) Charges for Administration # of IVP Administrations 1 Sodium Chloride (Sodium Chloride 0.9%) 1,000 mls @ 1,000 mls/hr IV .Q1H STA Stop: 07/21/17 02:19 Last Admin: 07/21/17 01:53 Dose: 1,000 mls/hr eMAR Start Stop Document 07/21/17 01:53 MS (Rec: 07/21/17 01:54 MS [id number]) Intravenous Solution Start Date 07/21/17 Start Time 01:54 End Date 07/21/17 End time 02:54 Total Infusion Time 60 Ketorolac Tromethamine (Toradol) 15 mg IVP STAT STA Stop: 07/21/17 01:30 Last Admin: 07/21/17 01:56 Dose: 15 mg MAR Pain Assessment Document 07/21/17 01:56 MS (Rec: 07/21/17 01:56 MS [id number]) Pain Reassessment Is this a pain reassessment? No Sleep Is patient sleeping during reassessment? No Presence of Pain Presence of Pain Yes Pain Scale Used Pain Scale Used Numeric Location Pain Location Body Site Abdomen Description Description Constant Intensity of Pain at present 10 Pain Behavior Moaning Crying Grasping Site IVP Administration Document 07/21/17 01:56 MS (Rec: 07/21/17 01:56 MS [id number]) Charges for Administration # of IVP Administrations 1 Morphine Sulfate (Morphine) 4 mg IVP STAT STA Stop: 07/21/17 02:57 Last Admin: 07/21/17 03:05 Dose: 4 mg MAR Pain Assessment Document 07/21/17 03:05 MS (Rec: 07/21/17 03:06 MS [id number]) Pain Reassessment Is this a pain reassessment? No Sleep Is patient sleeping during reassessment? No Presence of Pain Presence of Pain Yes Pain Scale Used Pain Scale Used Numeric Location Upper or Lower Lower Pain Location Body Site Abdomen Description Description Constant Intensity of Pain at present 10 IVP Administration Document 07/21/17 03:05 MS (Rec: 07/21/17 03:06 MS [id number]) Charges for Administration # of IVP Administrations 1 Ondansetron HCl (Zofran Inj) 4 mg IVP STAT STA Stop: 07/21/17 01:21 Last Admin: 07/21/17 01:57 Dose: 4 mg IVP Administration Document 07/21/17 01:57 MS (Rec: 07/21/17 01:57 MS [id number]) Charges for Administration # of IVP Administrations 1 Ondansetron HCl (Zofran Inj) 4 mg IVP STAT STA Stop: 07/21/17 03:57 - PA / 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 / has examined the patient and agrees with the treatment plan. Disposition/Present on Arrival - Present on Arrival Any Indicators Present on Arrival: No History of DVT/PE: No History of Uncontrolled Diabetes: No Urinary Catheter: No History of Decub. Ulcer: No History Surgical Site Infection Following: None - Disposition Have Diagnosis and Disposition been Completed?: Yes Disposition Time: 04:50 Patient Plan: Discharge - Disposition Diagnosis: Intractable vomiting Disposition: HOME/ ROUTINE Patient Problems: Current Active Problems Problem Status Onset Intractable vomiting Acute Condition: GOOD Additional Instructions: Pleasue follow up with primary care provider in 7-10 days. 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
[2017-07-21 02:17] LABS: BASO # 0.02 K/mm3 (0.0-2.0); BASO % 0.3 % (0.0-3.0); EOS # 0.1 (0.0-0.7); EOS % 0.6 % (1.5-5.0); GRAN # 5.61 (1.4-6.5); GRAN % 71.8 % (50.0-68.0); LYMPH # 1.7 (1.2-3.4); LYMPH % 21.3 % (22.0-35.0); MEAN CELL VOLUME 88.4 fl (80.0-105.0); MEAN CORPUSCULAR HEMOGLOBIN 29.5 pg (25.0-35.0); MEAN CORPUSCULAR HGB CONC 33.3 g/dl (31.0-37.0); MEAN PLATELET VOLUME 11.8 fl (7.0-11.0); MONO # 0.5 (0.1-0.6); RBC 4.92 10^6/uL (3.5-6.1); RED CELL DISTRIBUTION WIDTH 13.8 % (11.5-14.5); WHITE BLOOD COUNT 7.8 10^3/ul (4.5-11.0)
[2017-07-21 02:24] LABS: HEMOGLOBIN 14.5 g/dL (12.0-16.0)
[2017-07-21] MEDS ORDERED: Morphine 4 mg/ml ISec IVP STA (02:56)
[2017-07-21 04:37] LABS: ALB/GLOB RATIO 1.2 (1.1-1.8); ALBUMIN 4.8 g/dL (3.0-4.8); ALT/SGPT 22 U/L (7-56); AMYLASE 136 U/L (35-125); AST/SGOT 24 U/L (14-36); BLOOD UREA NITROGEN 12 mg/dL (7-21); CALCIUM 9.6 mg/dL (8.4-10.5); GFR AFRICAN-AMERICAN > 60; GFR NON-AFRICAN AMERICAN > 60; LIPASE 57 U/L (23-300)
[2017-07-21 04:44] LABS: INR 1.13 (0.93-1.08); PROTHROMBIN TIME 12.9 SECONDS (9.4-12.5)
[2017-07-21] MEDS ORDERED: Morphine 2 mg/ml ISec IVP STA (04:55)
[2017-07-21 05:11] VITALS: BP 124/80; PULSE 82; RESP 18
[2017-07-21 05:34] LABS: URINE BILIRUBIN SMALL (NEGATIVE); URINE BLOOD LARGE (NEGATIVE); URINE GLUCOSE (UA) NEGATIVE (NEGATIVE); URINE LEUKOCYTE ESTERASE NEGATIVE Leu/uL (NEGATIVE); URINE PROTEIN 100 mg/dL (<30 mg/dL); URINE UROBILINOGEN 0.2 E.U./dL (<1 E.U./dL)
[2017-07-21 05:36] LABS: URINE APPEARANCE SL CLOUDY (CLEAR); URINE COLOR YELLOW (YELLOW)
[2017-07-21 05:51] LABS: HCG,QUALITATIVE URINE NEGATIVE (NEGATIVE); URINE BACTERIA SMALL (NEG)
== END 2017-07-21 05:11 | disposition home or self-care (01) ==
LOC: ED 00:36
DX: R11.10 Vomiting, unspecified (principal)
CPT/HCPCS: 80053; 81001; 82150; 83690; 84703; 85025; 85610; 85730; 87804; 96361; 96374; 96375; 96376; 99283; J1885; J2270; J2405; J7040

== ENCOUNTER 2017-10-14 17:55 | Emergency (ER) | payer OTHER ==
[2017-10-14 18:01] VITALS: BMI 35.2
[2017-10-14 18:05] VITALS: RESP 18; O2SAT 100
[2017-10-14 18:58] LABS: URINE BILIRUBIN NEGATIVE (NEGATIVE); URINE BLOOD SMALL (NEGATIVE); URINE GLUCOSE (UA) NEGATIVE (NEGATIVE); URINE LEUKOCYTE ESTERASE NEGATIVE Leu/uL (NEGATIVE); URINE PROTEIN TRACE mg/dL (<30 mg/dL); URINE UROBILINOGEN 0.2 E.U./dL (<1 E.U./dL)
[2017-10-14 19:00] LABS: URINE APPEARANCE CLEAR (CLEAR); URINE COLOR YELLOW (YELLOW)
[2017-10-14 19:03] LABS: URINE RBC 15 - 20 /hpf (0-2)
--- NOTE | 2017-10-14 19:09 | ED PDOC ---
Arrival/HPI - General Chief Complaint: Female Genitourinary Time Seen by Provider: 10/14/17 18:37 Historian: Patient - History of Present Illness Narrative History of Present Illness (Text): 10/14/17 19:01 Patient is a 27 year old female who is complaining of persistent vaginal bleeding, which started 5 days ago. Patient reports that last week she had her period which started on 10/03/17 and ended on 10/07/17. She subsequently started experiencing "spotty" vaginal bleeding on 10/09/17 which has been constant and with associated menstrual like cramps. Patient denies any clots and changes her underwear 2 times per day due to the bleeding. She stopped taking control 6 months ago and is not currently on any control medication. She denies any history of similar symptoms. Patient denies any fevers, abdominal pain, or any other complaints at this time. Time/Duration: 1 week Symptom Onset: Gradual Symptom Course: Unchanged Quality: Cramping Context: Home Past Medical History - Provider Review Nursing Documentation Reviewed: Yes - Infectious Disease Hx of Infectious Diseases: None - Past Medical History Past Medical History: No Previous - Cardiac Hx Cardiac Disorders: No - Pulmonary Hx Respiratory Disorders: Yes Hx Asthma: Yes - Neurological Hx Neurological Disorder: No - HEENT Hx HEENT Disorder: No - Renal Hx Renal Disorder: No Hx Kidney Stones: No - Endocrine/Metabolic Hx Endocrine Disorders: No - Hematological/Oncological Hx Blood Disorders: No - Integumentary Hx Dermatological Disorder: No - Musculoskeletal/Rheumatological Hx Musculoskeletal Disorders: No Hx Falls: No - Gastrointestinal Hx Gastrointestinal Disorders: Yes Hx Gastritis: Yes - Genitourinary/Gynecological Hx Genitourinary Disorders: No - Psychiatric Hx Psychophysiologic Disorder: No Hx Substance Use: Yes - Past Surgical History Past Surgical History: No Previous - Anesthesia Hx Anesthesia: No - Suicidal Assessment Feels Threatened In Home Enviroment: No Family/Social History - Physician Review Nursing Documentation Reviewed: Yes Family/Social History: No Known Family HX Smoking Status: Never Smoked Hx Alcohol Use: Yes (occasionally) Frequency of alcohol use: Socially Hx Substance Use: Yes Substance used: marijuana Hx Substance Use Treatment: No Allergies/Home Meds Allergies/Adverse Reactions: Allergies No Known Allergies Allergy (Verified 06/15/17 01:47) Home Medications: Home Meds Medication Instructions Recorded Confirmed Albuterol HFA [Ventolin HFA 90 2 puff IH PRN PRN 06/15/17 10/14/17 mcg/actuation (8 g)] Review of Systems - Physician Review All systems were reviewed & negative as marked: Yes - Review of Systems Constitutional: absent: Fevers Respiratory: absent: SOB Genitourinary Female: Vaginal Bleeding Physical Exam Vital Signs Reviewed: Yes Vital Signs Temp Pulse Resp BP Pulse Ox 10/14/17 18:04 98.4 F 76 18 108/69 100 Temperature: Afebrile Blood Pressure: Normal Pulse: Regular Respiratory Rate: Normal Appearance: Positive for: Well-Appearing Mental Status: Positive for: Alert and Oriented X 3 - Systems Exam Head: Present: Atraumatic, Normocephalic Pupils: Present: PERRL Extroacular Muscles: Present: EOMI Conjunctiva: Present: Normal Mouth: Present: Moist Mucous Membranes Neck: Present: Normal Range of Motion Respiratory/Chest: Present: Clear to Auscultation, Good Air Exchange. No: Respiratory Distress, Accessory Muscle Use Cardiovascular: Present: Regular Rate and Rhythm, Normal S1, S2. No: Murmurs Abdomen: Present: Other (Abdomen Soft). No: Tenderness, Distention, Peritoneal Signs Back: Present: Normal Inspection Upper Extremity: Present: Normal Inspection. No: Cyanosis, Edema Lower Extremity: Present: Normal Inspection. No: Edema Neurological: Present: GCS=15, CN II-XII Intact, Speech Normal Skin: Present: Warm, Dry, Normal Color. No: Rashes Psychiatric: Present: Alert, Oriented x 3, Normal Insight, Normal Concentration Medical Decision Making ED Course and Treatment: 10/14/17 19:13 Impression: patient is a 27 year old female complaining of spotty vaginal bleeding with associated menstrual like cramping for the past 5 days s/p menstrual period. Differential Diagnosis included but are not limited to: Plan: --Urine culture --Transvaginal US -- urine test -- Reassess and disposition Prior Visits: Notes and results from previous visits were reviewed. Progress Notes: 10/14/17 22:29 US Pelvis Complete, Transabdominal US Pelvis, Transvaginal EXAM DATE/TIME: 10/14/2017 7:39 PM Dictated and Authenticated by: Dre Jain MD 10/14/2017 10:26 PM Eastern Time ([place] & [place]) IMPRESSION: 1. Within the right ovary, there is a 1.3 x 1.1 x 1.1 cm complex cyst with mural irregularity and thickened internal septation. 2. Within the anterior wall of the uterus, there is an intramural fibroid measuring 1.4 x 1.1 x 0.8 cm. 3. Hypoechoic follicles or small cysts are identified within the left ovary, the largest measuring 1.0 x 1.4 x 1.0 cm. 4. At the level of the cervix, there is a 0.8 x 0.8 cm nabothian cyst. 5. Follow-up ultrasonography is recommended. - Lab Interpretations Lab Results: Lab Results 10/14/17 18:45: Urine Color Yellow, Urine Appearance Clear, Urine pH 7.0, Ur Specific [place] 1.015, Urine Protein Trace H, Urine Glucose (UA) Negative, Urine Ketones Trace H, Urine Blood Small H, Urine Nitrate Negative, Urine Bilirubin Negative, Urine Urobilinogen 0.2, Ur Leukocyte Esterase Negative, Urine RBC 15 - 20, Urine WBC 1 - 3, Ur Epithelial Cells 3 - 4 - RAD Interpretation Radiology Orders: 10/14/17 19:39 TRANSVAGINAL [US] Stat - Scribe Statement The provider has reviewed the documentation as recorded by the Scribe Graham Sarmiento Provider Scribe Attestation: All medical record entries made by the Scribe were at my direction and personally dictated by me. I have reviewed the chart and agree that the record accurately reflects my personal performance of the history, physical exam, medical decision making, and the department course for this patient. I have also personally directed, reviewed, and agree with the discharge instructions and disposition. Disposition/Present on Arrival - Present on Arrival Any Indicators Present on Arrival: No History of DVT/PE: No History of Uncontrolled Diabetes: No Urinary Catheter: No History of Decub. Ulcer: No History Surgical Site Infection Following: None - Disposition Have Diagnosis and Disposition been Completed?: Yes Diagnosis: Dysfunctional uterine bleeding, Ovarian cyst, Uterine fibroid Disposition: HOME/ ROUTINE Disposition Time: 22:36 Patient Plan: Discharge Condition: GOOD Additional Instructions: Tykea - Sorry you are going through this right now...... you have an ovarian cyst and a uterine fibroid. Please follow up with Dr. Tirado, Gynecology, . Retrurn to us if any problems Best- Dr. Grabiel Whittaker Referrals: PCP,NO [Primary Care Provider] - Follow up with primary Kristie Tirado MD [Medical Doctor] - Follow up with primary Forms: [employer] (Nepalese), WORK NOTE, SCHOOL NOTE
--- NOTE | 2017-10-14 22:26 | US ---
EXAM: US Pelvis Complete, Transabdominal US Pelvis, Transvaginal EXAM DATE/TIME: 10/14/2017 7:39 PM CLINICAL HISTORY: The patient age is 27 years old and is female; Pain; Vaginal pain; Additional info: Cramps and spotting, negative Facility exam id and description: Us transve transvaginal TECHNIQUE: Real-time transabdominal and transvaginal pelvic ultrasound (complete) with image documentation. Transvaginal imaging was used for better evaluation of the endometrium and adnexa. COMPARISON: US - TRANSVAGINAL 2015-03-29 21:49 FINDINGS: Limitations: Transabdominal sonographic imaging is limited. Uterus/cervix: At the level of the cervix, there is a 0.8 x 0.8 cm hypoechoic nabothian cyst. Within the anterior wall of the uterus, there is an intramural fibroid of heterogeneous echogenicity measuring 1.4 x 1.1 x 0.8 cm. The uterus measures 5.4 x 3.9 x 3.4 cm. The uterus is heterogeneous in echogenicity. The endometrial stripe measures 0.3 cm, which is within normal limits. The cervical length is 3.11 cm. Right ovary: Within the right ovary, there is a 1.3 x 1.1 x 1.1 cm complex cyst with mural irregularity and thickened internal septation. The right ovary measures 2.6 x 1.8 x 1.8 cm. Physiologic blood flow. Left ovary: Hypoechoic follicles or small cysts are identified within the left ovary, the largest measuring 1.0 x 1.4 x 1.0 cm. The left ovary measures 3.7 x 1.4 x 1.0 cm. Physiologic blood flow. Free fluid: No free fluid. Bladder: Wall is normal thickness for degree of distention. IMPRESSION: 1. Within the right ovary, there is a 1.3 x 1.1 x 1.1 cm complex cyst with mural irregularity and thickened internal septation. 2. Within the anterior wall of the uterus, there is an intramural fibroid measuring 1.4 x 1.1 x 0.8 cm. 3. Hypoechoic follicles or small cysts are identified within the left ovary, the largest measuring 1.0 x 1.4 x 1.0 cm. 4. At the level of the cervix, there is a 0.8 x 0.8 cm nabothian cyst. 5. Follow-up ultrasonography is recommended.
[2017-10-14 23:15] VITALS: BP 135/85; PULSE 77; TEMP 98.3
== END 2017-10-14 23:00 | disposition home or self-care (01) ==
LOC: ED 17:55
DX: N93.8 Other specified abnormal uterine and vaginal bleeding (principal); D25.1 Intramural leiomyoma of uterus; N83.202 Unspecified ovarian cyst, left side

== ENCOUNTER 2017-12-02 13:33 | Emergency (ER) | payer OTHER ==
--- NOTE | 2017-12-02 14:04 | ED PDOC ---
Arrival/HPI - General Time Seen by Provider: 12/02/17 13:55 Historian: Patient - History of Present Illness Narrative History of Present Illness (Text): 12/02/17 14:00 27 year old female whose PMH includes gastritis, who presents to the emergency department complaining of epigastric pain due to her gastritis that has become worse. Patient reports her abdominal pain is associated with nausea, vomiting, headache, and chills. She states taking Pepcid at home with no significant relief. Patient denies chest pain, shortness of breath, fever, cough, dysuria, or other complaints. Time/Duration: 24 hours Symptom Onset: Sudden Symptom Course: Worsening Context: Home Past Medical History - Provider Review Nursing Documentation Reviewed: Yes - Infectious Disease Hx of Infectious Diseases: None - Past Medical History Past Medical History: No Previous - Cardiac Hx Cardiac Disorders: No - Pulmonary Hx Respiratory Disorders: Yes Hx Asthma: Yes - Neurological Hx Neurological Disorder: No - HEENT Hx HEENT Disorder: No - Renal Hx Renal Disorder: No Hx Kidney Stones: No - Endocrine/Metabolic Hx Endocrine Disorders: No - Hematological/Oncological Hx Blood Disorders: No - Integumentary Hx Dermatological Disorder: No - Musculoskeletal/Rheumatological Hx Musculoskeletal Disorders: No Hx Falls: No - Gastrointestinal Hx Gastrointestinal Disorders: Yes Hx Gastritis: Yes - Genitourinary/Gynecological Hx Genitourinary Disorders: No - Psychiatric Hx Psychophysiologic Disorder: No Hx Substance Use: Yes - Past Surgical History Past Surgical History: No Previous - Anesthesia Hx Anesthesia: No - Suicidal Assessment Feels Threatened In Home Enviroment: No Family/Social History - Physician Review Nursing Documentation Reviewed: Yes Family/Social History: Unknown Family HX Smoking Status: Never Smoked Hx Alcohol Use: Yes (occasionally) Hx Substance Use: Yes Substance used: marijuana Hx Substance Use Treatment: No Allergies/Home Meds Allergies/Adverse Reactions: Allergies No Known Allergies Allergy (Verified 12/02/17 14:03) Review of Systems - Review of Systems Constitutional: absent: Fevers ENT: absent: Sinus Congestion Respiratory: absent: SOB Cardiovascular: absent: Chest Pain Gastrointestinal: Abdominal Pain, Nausea, Vomiting. absent: Diarrhea Genitourinary Female: absent: Dysuria Musculoskeletal: absent: Back Pain Skin: absent: Rash Neurological: Headache. absent: Dizziness Endocrine: absent: Diaphoresis Physical Exam Vital Signs Temp Pulse Resp BP Pulse Ox 12/02/17 16:36 98.8 F 85 18 106/79 97 12/02/17 16:10 99 F 80 18 98/47 L 96 12/02/17 13:33 99.8 F H 83 18 124/64 95 Appearance: Positive for: Well-Appearing, Non-Toxic, Uncomfortable Pain Distress: Mild Mental Status: Positive for: Alert and Oriented X 3 - Systems Exam Head: Present: Atraumatic, Normocephalic Pupils: Present: PERRL Extroacular Muscles: Present: EOMI Conjunctiva: Present: Normal Respiratory/Chest: Present: Clear to Auscultation, Good Air Exchange. No: Respiratory Distress, Accessory Muscle Use Cardiovascular: Present: Regular Rate and Rhythm, Normal S1, S2. No: Murmurs Abdomen: Present: Tenderness (diffused ), Normal Bowel Sounds. No: Distention, Peritoneal Signs, Rebound, Guarding Neurological: Present: GCS=15, CN II-XII Intact, Speech Normal Skin: Present: Warm, Dry, Normal Color. No: Rashes Psychiatric: Present: Alert, Oriented x 3, Normal Insight, Normal Concentration Medical Decision Making ED Course and Treatment: 12/02/17 Impression: 27 year old female with diffused abdominal tenderness complaining of abdominal pain associated with nausea, vomiting, and headache due to her gastritis. Plan: -- Labs -- Morphine, Pepcid, Zofran, and Sodium Chloride -- Reassess and disposition Progress Notes: Patient given 1L NS bolus, 4mg morphine ivp, 20mg pepcid ivpb, 4mg zofran ivp. 12/02/17 16:24 On re-eval patient states that her pain had improved but returned once her Pepcid was done. Requesting additional Pepcid. Another 20mg ordered. Rx written at discharge for Zofran and for a small amount of Percocet for pain. I have discussed the results and plan with the patient, who expresses understanding. Patient given the opportunity to ask question, all questions were answered and there is agreement with the plan to discharge the patient home. Patient is stable for discharge. Patient was instructed to follow up with physician/clinic in 1-2 days or return if symptoms persist/worsen or new concerning symptoms arise. - Lab Interpretations Lab Results: 12/02/17 15:10 12/02/17 15:10 Lab Results 12/02/17 15:10: Sodium 143, Potassium 4.5, Chloride 107, Carbon Dioxide 21, Anion Gap 19, BUN 9, Creatinine 0.8, Est GFR ( Amer) > 60, Est GFR (Non- Af Amer) > 60, Random Glucose 92, Calcium 9.8 12/02/17 15:10: WBC 6.5, RBC 4.59, Hgb 13.7, Hct 40.3, MCV 87.8, MCH 29.8, MCHC 34.0, RDW 12.6, Plt Count 262, MPV 10.9, Gran % 76.9 H, Lymph % (Auto) 17.5 L, Reynolds % (Auto) 5.2, Eos % (Auto) 0.2 L, Baso % (Auto) 0.2, Gran # 5.02, Lymph # ( Auto) 1.1 L, Reynolds # (Auto) 0.3, Eos # (Auto) 0.0, Baso # (Auto) 0.01 I have reviewed the lab results: Yes - Medication Orders Current Medication Orders: Discontinued Medications Famotidine (Pepcid) 20 mg IVP STAT STA Stop: 12/02/17 15:57 Last Admin: 12/02/17 16:07 Dose: 20 mg IVP Administration Document 12/02/17 16:07 SRE (Rec: 12/02/17 16:09 SRE [id number]) Charges for Administration # of IVP Administrations 1 Famotidine (Pepcid 20mg/50ml Premix) 20 mg in 50 mls @ 100 mls/hr IVPB STAT STA Stop: 12/02/17 14:35 Last Admin: 12/02/17 15:21 Dose: 100 mls/hr eMAR Start Stop Document 12/02/17 15:21 SRE (Rec: 12/02/17 15:21 SRE [id number]) Intravenous Solution Start Date 12/02/17 Start Time 15:21 End Date 12/02/17 End time 16:00 Total Infusion Time 39 Sodium Chloride (Sodium Chloride 0.9%) 1,000 mls @ 999 mls/hr IV .Q1H1M STA Stop: 12/02/17 15:06 Last Admin: 12/02/17 15:18 Dose: 999 mls/hr eMAR Start Stop Document 12/02/17 15:18 SRE (Rec: 12/02/17 15:19 SRE [id number]) Intravenous Solution Start Date 12/02/17 Start Time 15:00 End Date 12/02/17 End time 16:00 Total Infusion Time 60 Morphine Sulfate (Morphine) 4 mg IVP STAT STA Stop: 12/02/17 14:07 Last Admin: 12/02/17 15:10 Dose: 4 mg MAR Pain Assessment Document 12/02/17 15:10 SRE (Rec: 12/02/17 15:20 SRE [id number]) Pain Reassessment Is this a pain reassessment? Yes Sleep Is patient sleeping during reassessment? No Presence of Pain Presence of Pain Yes Pain Scale Used Pain Scale Used Numeric Location Pain Location Body Site Abdomen Description Description Intermittent IVP Administration Document 12/02/17 15:10 SRE (Rec: 12/02/17 15:20 SRE [id number]) Charges for Administration # of IVP Administrations 1 Ondansetron HCl (Zofran Inj) 4 mg IVP STAT STA Stop: 12/02/17 14:07 Last Admin: 12/02/17 15:05 Dose: 4 mg IVP Administration Document 12/02/17 15:05 SRE (Rec: 12/02/17 15:19 SRE [id number]) Charges for Administration # of IVP Administrations 1 - Scribe Statement The provider has reviewed the documentation as recorded by the Mitul Andrews Provider Scribe Attestation: All medical record entries made by the Scribe were at my direction and personally dictated by me. I have reviewed the chart and agree that the record accurately reflects my personal performance of the history, physical exam, medical decision making, and the department course for this patient. I have also personally directed, reviewed, and agree with the discharge instructions and disposition. Disposition/Present on Arrival - Present on Arrival Any Indicators Present on Arrival: No History of DVT/PE: No History of Uncontrolled Diabetes: No Urinary Catheter: No History Surgical Site Infection Following: None - Disposition Have Diagnosis and Disposition been Completed?: Yes Diagnosis: Gastritis Disposition: HOME/ ROUTINE Disposition Time: 16:37 Condition: STABLE Discharge Instructions (ExitCare): Gastritis (DC) Additional Instructions: DMITRIY THOMPSON, thank you for letting us take care of you today. Your provider was Estefany Eli MD and you were treated for ABD PAIN. The emergency medical care you received today was directed at your acute symptoms. If you were prescribed any medication, please fill it and take as directed. It may take several days for your symptoms to resolve. Return to the Emergency Department if your symptoms worsen, do not improve, or if you have any other problems. Please contact your doctor or call one of the physicians/clinics you have been referred to that are listed on the Patient Visit Information form that is included in your discharge packet. Bring any paperwork you were given at discharge with you along with any medications you are taking to your follow up visit. Our treatment cannot replace ongoing medical care by a primary care provider outside of the emergency department. Thank you for allowing the [facility] team to be part of your care today. If you had an X-Ray or CT scan: A Radiologist will review the ED reading if any change in treatment is needed we will contact you. If you had a blood, urine, or wound culture: It will take several days for the results, if any change in treatment is needed we will contact you. If you had an STI test: It will take 48 hours for the results. Please call after 1 week if you have not heard back. Prescriptions: Ondansetron [Zofran] 4 mg PO Q8H #9 tab oxyCODONE/Acetaminophen [Percocet 5/325 mg Tab] 1 tab PO Q6H PRN #5 tab PRN Reason: Pain, Severe (8-10) Referrals: Frank Marroquin MD [Primary Care Provider] - Follow up with primary Forms: [employer] (Macedonian)
[2017-12-02] MEDS ORDERED: Famotidine 20mg/50ml 20 MG/50 ML BAG IVPB STA (14:06)
[2017-12-02] MEDS ORDERED: Sodium Chloride 0.9% 1,000 ML IV STA (14:06)
[2017-12-02] MEDS ORDERED: Morphine 4 mg/ml ISec IVP STA (14:06)
[2017-12-02 14:10] VITALS: BMI 33.2
[2017-12-02 14:35] VITALS: RESP 18
[2017-12-02 15:28] LABS: BASO # 0.01 K/mm3 (0.0-2.0); BASO % 0.2 % (0.0-3.0); EOS % 0.2 % (1.5-5.0); GRAN # 5.02 (1.4-6.5); GRAN % 76.9 % (50.0-68.0); HEMOGLOBIN 13.7 g/dL (12.0-16.0); LYMPH # 1.1 (1.2-3.4); LYMPH % 17.5 % (22.0-35.0); MEAN CELL VOLUME 87.8 fl (80.0-105.0); MEAN CORPUSCULAR HEMOGLOBIN 29.8 pg (25.0-35.0); MEAN PLATELET VOLUME 10.9 fl (7.0-11.0); MONO # 0.3 (0.1-0.6); MONO % 5.2 % (1.0-6.0); RBC 4.59 10^6/uL (3.5-6.1); RED CELL DISTRIBUTION WIDTH 12.6 % (11.5-14.5); WHITE BLOOD COUNT 6.5 10^3/ul (4.5-11.0)
[2017-12-02 15:36] LABS: BLOOD UREA NITROGEN 9 mg/dL (7-21); CALCIUM 9.8 mg/dL (8.4-10.5); GFR AFRICAN-AMERICAN > 60; GFR NON-AFRICAN AMERICAN > 60
[2017-12-02 16:37] VITALS: BP 106/79; PULSE 85; TEMP 98.8; O2SAT 97
== END 2017-12-02 16:36 | disposition home or self-care (01) ==
LOC: ED 13:33
DX: K29.70 Gastritis, unspecified, without bleeding (principal)
CPT/HCPCS: 80048; 85025; 96365; 96375; 99283; J2270; J2405; J7030

== ENCOUNTER 2018-03-31 04:26 | Emergency (ER) | payer OTHER ==
[2018-03-31 04:26] VITALS: BMI 34.2
[2018-03-31 04:35] VITALS: BP 118/62; PULSE 80; TEMP 97.2
[2018-03-31] MEDS ORDERED: Albuterol-Ipratrop 3 mg / 0.5 (3 ml) UD ONE (04:39)
[2018-03-31] MEDS ORDERED: predniSONE 5 mg/5 mL Oral Soln UD PO ONE (04:50)
--- NOTE | 2018-03-31 04:51 | ED PDOC ---
Arrival/HPI - General Chief Complaint: Respiratory Distress Time Seen by Provider: 03/31/18 04:31 Historian: Patient - History of Present Illness Narrative History of Present Illness (Text): 03/31/18 04:47 28 year old female, whose past medical history includes asthma, gastritis, and uterine fibroids, presents to the emergency complaining of asthma flare up tonight. Patient states she did a breathing treatment at home with no relief. She states Prednisone usually helps when she does not have any at home. Patient denies any fever, chills, chest pain, nausea, vomiting, diarrhea, urinary symptoms, back pain, neck pain, headache, dizziness, or any other complaints. PMD: Dr. Garcia Symptom Onset: Gradual Symptom Course: Worsening Activities at Onset: Light Context: Home Past Medical History - Provider Review Nursing Documentation Reviewed: Yes - Infectious Disease Hx of Infectious Diseases: None - Past Medical History Past Medical History: No Previous - Cardiac Hx Cardiac Disorders: No - Pulmonary Hx Respiratory Disorders: Yes Hx Asthma: Yes - Neurological Hx Neurological Disorder: No - HEENT Hx HEENT Disorder: No - Renal Hx Renal Disorder: No Hx Kidney Stones: No - Endocrine/Metabolic Hx Endocrine Disorders: No - Hematological/Oncological Hx Blood Disorders: No - Integumentary Hx Dermatological Disorder: No - Musculoskeletal/Rheumatological Hx Musculoskeletal Disorders: No Hx Falls: No - Gastrointestinal Hx Gastrointestinal Disorders: Yes Hx Gastritis: Yes - Genitourinary/Gynecological Hx Genitourinary Disorders: No - Psychiatric Hx Psychophysiologic Disorder: No Hx Substance Use: Yes - Past Surgical History Past Surgical History: No Previous - Anesthesia Hx Anesthesia: No - Suicidal Assessment Feels Threatened In Home Enviroment: No Family/Social History - Physician Review Nursing Documentation Reviewed: Yes Family/Social History: No Known Family HX Smoking Status: Never Smoked Hx Alcohol Use: Yes (occasionally) Hx Substance Use: Yes Substance used: marijuana Hx Substance Use Treatment: No Allergies/Home Meds Allergies/Adverse Reactions: Allergies No Known Allergies Allergy (Verified 01/26/18 06:24) Review of Systems - Physician Review All systems were reviewed & negative as marked: Yes - Review of Systems Constitutional: absent: Fevers, Other (chills) Respiratory: SOB Cardiovascular: absent: Chest Pain Gastrointestinal: absent: Diarrhea, Nausea, Vomiting Genitourinary Female: absent: Dysuria, Frequency, Hematuria Musculoskeletal: absent: Back Pain, Neck Pain Neurological: absent: Headache, Dizziness Physical Exam Vital Signs Reviewed: Yes Vital Signs Temp Pulse Resp BP Pulse Ox 03/31/18 04:32 97.2 F L 80 18 118/62 96 Temperature: Afebrile Blood Pressure: Normal Pulse: Regular Respiratory Rate: Normal Appearance: Positive for: Well-Appearing, Non-Toxic, Comfortable Pain Distress: None Mental Status: Positive for: Alert and Oriented X 3 - Systems Exam Head: Present: Atraumatic, Normocephalic Pupils: Present: PERRL Extroacular Muscles: Present: EOMI Conjunctiva: Present: Normal Mouth: Present: Moist Mucous Membranes Neck: Present: Normal Range of Motion Respiratory/Chest: Present: Wheezes (expiratory wheezes bilateral bases). No: Respiratory Distress, Accessory Muscle Use Cardiovascular: Present: Regular Rate and Rhythm, Normal S1, S2. No: Murmurs Neurological: Present: GCS=15, CN II-XII Intact, Speech Normal Skin: Present: Warm, Dry, Normal Color. No: Rashes Psychiatric: Present: Alert, Oriented x 3, Normal Insight, Normal Concentration Medical Decision Making ED Course and Treatment: 03/31/18 04:47 Impression: 28 year old female presents complaining of asthma flare up tonight. Plan: -- Neb treatment -- Prednisone Oral -- Reassess and disposition Prior Visits: Notes and results from previous visits were reviewed. Progress Notes: 03/31/18 05:15 On re-evaluation, patient feels better and is in no acute distress. I have discussed plan with the patient, who expresses understanding. Patient in agreement with plan to be discharged home with prescription for Prednisone and Albuterol. Patient is stable for discharge. Patient was instructed to follow up with physician or return if symptoms worsen or new concerning symptoms arise. - Scribe Statement The provider has reviewed the documentation as recorded by the Mitul Hughes Provider Scribe Attestation: All medical record entries made by the Mitul were at my direction and personally dictated by me. I have reviewed the chart and agree that the record accurately reflects my personal performance of the history, physical exam, medical decision making, and the department course for this patient. I have also personally directed, reviewed, and agree with the discharge instructions and disposition. Disposition/Present on Arrival - Present on Arrival Any Indicators Present on Arrival: No History of DVT/PE: No History of Uncontrolled Diabetes: No Urinary Catheter: No History of Decub. Ulcer: No History Surgical Site Infection Following: None - Disposition Have Diagnosis and Disposition been Completed?: Yes Diagnosis: Asthma exacerbation Disposition: HOME/ ROUTINE Disposition Time: 05:10 Condition: STABLE Discharge Instructions (ExitCare): Asthma, Adult (DC) Additional Instructions: DMITRIY THOMPSON, thank you for letting us take care of you today. Your provider was Estefany Eli MD and you were treated for ASTHMA. The emergency medical care you received today was directed at your acute symptoms. If you were prescribed any medication, please fill it and take as directed. It may take several days for your symptoms to resolve. Return to the Emergency Department if your symptoms worsen, do not improve, or if you have any other problems. Please contact your doctor or call one of the physicians/clinics you have been referred to that are listed on the Patient Visit Information form that is included in your discharge packet. Bring any paperwork you were given at discharge with you along with any medications you are taking to your follow up visit. Our treatment cannot replace ongoing medical care by a primary care provider outside of the emergency department. Thank you for allowing the [facility] team to be part of your care today. If you had an X-Ray or CT scan: A Radiologist will review the ED reading if any change in treatment is needed we will contact you. If you had a blood, urine, or wound culture: It will take several days for the results, if any change in treatment is needed we will contact you. If you had an STI test: It will take 48 hours for the results. Please call after 1 week if you have not heard back. Prescriptions: RX: Albuterol HFA [Ventolin HFA 90 mcg/actuation (8 g)] 2 puff IH Q4H PRN #1 inh PRN Reason: Wheezing predniSONE [Prednisone] 20 mg PO DAILY 5 Days udc Forms: [employer] (Urdu)
[2018-03-31 05:28] VITALS: RESP 20; O2SAT 95
== END 2018-03-31 05:20 | disposition home or self-care (01) ==
LOC: ED 04:26
DX: J45.901 Unspecified asthma with (acute) exacerbation (principal)

== ENCOUNTER 2018-04-19 06:49 | Emergency (ER) | payer OTHER ==
[2018-04-19 07:15] VITALS: BMI 35.2
[2018-04-19 07:24] VITALS: RESP 18; TEMP 98.1
[2018-04-19] MEDS ORDERED: Sodium Chloride 0.9% 1,000 ML IV STA (07:39)
[2018-04-19] MEDS ORDERED: Morphine 4 mg/ml ISec IVP STA (07:39)
--- NOTE | 2018-04-19 08:21 | ED PDOC ---
Arrival/HPI - General Chief Complaint: Female Genitourinary Time Seen by Provider: 04/19/18 07:16 Historian: Patient - History of Present Illness Narrative History of Present Illness (Text): 04/19/18 07:40 28 year old female, with past medical history of uterine fibroids and gastritis, presents to the Emergency department complaining of abdominal pain since 10 pm yesterday. Patient reports associated intermittent nausea and vomiting and states a sensation of "hot and cold" associated with generalized body aches. Patient informs she is currently on day 2 of her menstrual cycle. As per patient, symptoms are consistent with her past episodes of fibroids exacerbation and gastritis. Patient denies any other associated somatic complaints. Patient denies any fevers, chills, headache, dizziness, chest pain, shortness of breath, dyspnea on exertion, cough, diarrhea, back pain, neck pain, or any other complaints. Time/Duration: 4-6 hours Symptom Onset: Gradual Symptom Course: Unchanged Quality: Aching Activities at Onset: Light Context: Home Past Medical History - Provider Review Nursing Documentation Reviewed: Yes - Infectious Disease Hx of Infectious Diseases: None - Past Medical History Past Medical History: No Previous - Cardiac Hx Cardiac Disorders: No - Pulmonary Hx Respiratory Disorders: Yes Hx Asthma: Yes - Neurological Hx Neurological Disorder: No - HEENT Hx HEENT Disorder: No - Renal Hx Renal Disorder: No Hx Kidney Stones: No - Endocrine/Metabolic Hx Endocrine Disorders: No - Hematological/Oncological Hx Blood Disorders: No - Integumentary Hx Dermatological Disorder: No - Musculoskeletal/Rheumatological Hx Musculoskeletal Disorders: No Hx Falls: No - Gastrointestinal Hx Gastrointestinal Disorders: Yes Hx Gastritis: Yes - Genitourinary/Gynecological Hx Genitourinary Disorders: No - Psychiatric Hx Psychophysiologic Disorder: No Hx Substance Use: Yes - Past Surgical History Past Surgical History: No Previous - Anesthesia Hx Anesthesia: No - Suicidal Assessment Feels Threatened In Home Enviroment: No Family/Social History - Physician Review Nursing Documentation Reviewed: Yes Family/Social History: Unknown Family HX Smoking Status: Never Smoked Hx Alcohol Use: Yes (occasionally) Hx Substance Use: Yes Substance used: marijuana Hx Substance Use Treatment: No Allergies/Home Meds Allergies/Adverse Reactions: Allergies metoclopramide [From Reglan] Adverse Reaction (Verified 04/19/18 07:16) ANAPHYLAXIS Review of Systems - Physician Review All systems were reviewed & negative as marked: Yes - Review of Systems Constitutional: absent: Fevers Respiratory: absent: SOB, Cough Cardiovascular: absent: Chest Pain, KIRAN Gastrointestinal: Abdominal Pain, Nausea, Vomiting. absent: Diarrhea Genitourinary Female: absent: Hematuria, Urine Output Changes Musculoskeletal: absent: Back Pain, Neck Pain Skin: absent: Rash Neurological: absent: Headache, Dizziness Physical Exam Vital Signs Reviewed: Yes Vital Signs Temp Pulse Resp BP Pulse Ox 04/19/18 07:24 98.1 F 76 18 122/75 99 Temperature: Afebrile Blood Pressure: Normal Pulse: Regular Respiratory Rate: Normal Appearance: Positive for: Well-Appearing, Non-Toxic, Comfortable Pain Distress: None Mental Status: Positive for: Alert and Oriented X 3 - Systems Exam Head: Present: Atraumatic, Normocephalic Pupils: Present: PERRL Extroacular Muscles: Present: EOMI Conjunctiva: Present: Normal Respiratory/Chest: Present: Clear to Auscultation, Good Air Exchange. No: Respiratory Distress, Accessory Muscle Use Cardiovascular: Present: Regular Rate and Rhythm, Normal S1, S2. No: Murmurs Abdomen: Present: Tenderness (Diffuse abdominal tenderness), Guarding, Other (Actively vomitng). No: Distention, Peritoneal Signs Genitourinary/Pelvic Exam: Present: Cervical os Closed, Other (Moderate blood noted. 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 No: Adenexal Tenderness, Cervical Motion Tendernes Back: Present: Normal Inspection Upper Extremity: Present: Normal Inspection. No: Cyanosis, Edema Lower Extremity: Present: Normal Inspection. No: Edema Neurological: Present: GCS=15, CN II-XII Intact, Speech Normal Skin: Present: Warm, Dry, Normal Color. No: Rashes Psychiatric: Present: Alert, Oriented x 3, Normal Insight, Normal Concentration Medical Decision Making ED Course and Treatment: 04/19/18 08:00 Impression: 28 year old female presents to the Emergency department complaining of abdominal pain, nausea, and vomiting. Differential Diagnosis included but are not limited to: Gastritis vs. Fibroids vs. Cholecystitis vs. Upper GI Bleed Plan: -- CT of Abdomen/Pelvis -- Labs -- Morphine -- Pepcid -- IV Fluids -- Zofran -- Urinalysis -- US Transvaginal -- Reassess and disposition Prior Visits: Notes and results from previous visits were reviewed. Progress Notes: 04/19/18 11:52 Transvaginal US reviewed by radiologist, shows: IMPRESSION: Presumable 1.8 x 1.4 x 1.5 cm hemorrhagic cyst in the left ovary and moderate complicated/hemorrhagic fluid in the pelvis. Findings could be related to rupture of the suspected hemorrhagic cyst. No evidence for torsion. 2.0 x 1.9 x 2.2 cm anterior wall intramural fibroid in the midbody of the uterus. CT of Abdomen/Pelvis reviewed by radiologist, shows: IMPRESSION: Prominence of both ovaries as well as the endometrium; recommend gynecological consultation. Left upper pole renal cyst. 04/19/18 12:31 Upon re-evaluation, patient now informs abdominal cramps. Abdomen is soft and non-tender. Patient will be given pain control and zofran. - RAD Interpretation Radiology Orders: 04/19/18 08:07 ABD & PELVIS IV CONTRAST ONLY [CT] Stat TRANSVAGINAL [US] Stat - Medication Orders Current Medication Orders: Sodium Chloride (Sodium Chloride 0.9%) 1,000 mls @ 1,000 mls/hr IV .Q1H STA Stop: 04/19/18 08:38 Discontinued Medications Famotidine (Pepcid) 20 mg IVP STAT STA Stop: 04/19/18 07:40 Morphine Sulfate (Morphine) 4 mg IVP STAT STA Stop: 04/19/18 07:40 Ondansetron HCl (Zofran Inj) 4 mg IVP STAT STA Stop: 04/19/18 07:40 - Scribe Statement The provider has reviewed the documentation as recorded by the Scribkamron Hernandez. All medical record entries made by the Aureliaibe were at my direction and personally dictated by me. I have reviewed the chart and agree that the record accurately reflects my personal performance of the history, physical exam, medical decision making, and the department course for this patient. I have also personally directed, reviewed, and agree with the discharge instructions and disposition. Disposition/Present on Arrival - Present on Arrival Any Indicators Present on Arrival: No History of DVT/PE: No History of Uncontrolled Diabetes: No Urinary Catheter: No History of Decub. Ulcer: No History Surgical Site Infection Following: None - Disposition Have Diagnosis and Disposition been Completed?: Yes Diagnosis: Abdominal pain, Fibroid, Ovarian cyst Disposition: HOME/ ROUTINE Disposition Time: 13:51 Patient Plan: Discharge Condition: IMPROVED Additional Instructions: DMITRIY THOMPSON, thank you for letting us take care of you today. Your provider was Felix Allen DO and you were treated for Abdominal Pain, Ovarian Cyst, Fibroid. The emergency medical care you received today was directed at your acute symptoms. If you were prescribed any medication, please fill it and take as directed. It may take several days for your symptoms to resolve. Return to the Emergency Department if your symptoms worsen, do not improve, or if you have any other problems. Please contact your doctor or call one of the physicians/clinics you have been referred to that are listed on the Patient Visit Information form that is included in your discharge packet. Bring any paperwork you were given at discharge with you along with any medications you are taking to your follow up visit. Our treatment cannot replace ongoing medical care by a primary care provider outside of the emergency department. Thank you for allowing the [facility] team to be part of your care today. If you had an X-Ray or CT scan: A Radiologist will review the ED reading if any change in treatment is needed we will contact you. If you had a blood, urine, or wound culture: It will take several days for the results, if any change in treatment is needed we will contact you. If you had an STI test: It will take 48 hours for the results. Please call after 1 week if you have not heard back. Prescriptions: Acetaminophen [Tylenol Extra Strength] 500 mg PO Q4 #30 tablet Aluminum Hydroxide/Magnesium H [Maalox 30 ml] 30 ml PO Q8 #1 bottle Famotidine [Pepcid] 20 mg PO DAILY #30 tab Referrals: [facility], [Non-Staff] - Follow up with primary Shaina Barragan MD [Staff Provider] - Follow up with primary Forms: [employer] (Kyrgyz), WORK NOTE
[2018-04-19 08:31] LABS: URINE APPEARANCE SL CLOUDY (CLEAR); URINE BILIRUBIN NEGATIVE (NEGATIVE); URINE BLOOD LARGE (NEGATIVE); URINE COLOR LIGHT RED (YELLOW); URINE GLUCOSE (UA) NEGATIVE (NEGATIVE); URINE LEUKOCYTE ESTERASE TRACE Leu/uL (NEGATIVE); URINE PROTEIN 100 mg/dL (<30 mg/dL); URINE UROBILINOGEN 0.2 E.U./dL (<1 E.U./dL)
[2018-04-19 08:33] LABS: BASO # 0.02 K/mm3 (0.0-2.0); BASO % 0.2 % (0.0-3.0); EOS # 0.1 (0.0-0.7); EOS % 0.9 % (1.5-5.0); GRAN # 6.07 (1.4-6.5); GRAN % 64.7 % (50.0-68.0); HEMOGLOBIN 14.6 g/dL (12.0-16.0); LYMPH # 2.5 (1.2-3.4); LYMPH % 26.1 % (22.0-35.0); MEAN CELL VOLUME 90.1 fl (80.0-105.0); MEAN CORPUSCULAR HEMOGLOBIN 29.5 pg (25.0-35.0); MEAN CORPUSCULAR HGB CONC 32.7 g/dl (31.0-37.0); MONO # 0.8 (0.1-0.6); MONO % 8.1 % (1.0-6.0); RBC 4.95 10^6/uL (3.5-6.1); RED CELL DISTRIBUTION WIDTH 13.1 % (11.5-14.5); WHITE BLOOD COUNT 9.4 10^3/uL (4.5-11.0)
[2018-04-19 08:39] LABS: URINE RBC 20 - 25 /hpf (0-2)
[2018-04-19 08:40] LABS: URINE BACTERIA MOD (NEG)
[2018-04-19 10:05] LABS: ALB/GLOB RATIO 1.2 (1.1-1.8); ALBUMIN 4.4 g/dL (3.0-4.8); ALT/SGPT 23 U/L (7-56); AST/SGOT 25 U/L (14-36); BLOOD UREA NITROGEN 11 mg/dL (7-21); GFR NON-AFRICAN AMERICAN > 60; LIPASE 401 U/L (23-300)
--- NOTE | 2018-04-19 10:51 | US ---
Date of service: 04/19/2018 HISTORY: abd pain h/o fibroids COMPARISON: 10/14/2017. TECHNIQUE: Transvaginal pelvic ultrasound was performed. FINDINGS: UTERUS: Measures 6.9 x 3.9 x 4.6 cm. Anteverted and normal in size. There is a 2.0 x 1.9 x 2.2 cm anterior wall intramural fibroid in the midbody of the uterus. ENDOMETRIUM: Measures 10 mm in diameter. Unremarkable. CERVIX: There is a nabothian cyst in the cervix. RIGHT OVARY: Measures 3.2 x 3.5 x 2.8 cm. No solid mass. Normal flow. LEFT OVARY: Measures 2.7 x 1.9 x 3.3 cm. No solid mass. Normal flow. There is a 1.8 x 1.4 x 1.5 cm complicated/hemorrhagic cyst. FREE FLUID: There is moderate complicated fluid in the cul de sac. OTHER FINDINGS: None. IMPRESSION: Presumable 1.8 x 1.4 x 1.5 cm hemorrhagic cyst in the left ovary and moderate complicated/hemorrhagic fluid in the pelvis. Findings could be related to rupture of the suspected hemorrhagic cyst. No evidence for torsion. 2.0 x 1.9 x 2.2 cm anterior wall intramural fibroid in the midbody of the uterus.
[2018-04-19] MEDS ORDERED: Iohexol 350 MG/100 ML VIAL ONE (10:58)
[2018-04-19 11:14] VITALS: O2SAT 99
--- NOTE | 2018-04-19 11:26 | CT ---
Date of service: 04/19/2018 PROCEDURE: CT Abdomen and Pelvis with and without intravenous contrast HISTORY: abd pain COMPARISON: None. TECHNIQUE: Axial images of the abdomen were obtained in the pre contrast, portal venous and delayed phases of enhancement. Coronal and sagittal reformats were generated. Contrast dose: Radiation dose: Total exam DLP = 788.25 mGy-cm. This CT exam was performed using one or more of the following dose reduction techniques: Automated exposure control, adjustment of the mA and/or kV according to patient size, and/or use of iterative reconstruction technique. FINDINGS: LOWER THORAX: Unremarkable. LIVER: Unremarkable. No gross lesion or ductal dilatation. GALLBLADDER AND BILE DUCTS: Unremarkable. PANCREAS: Unremarkable. No gross lesion or ductal dilatation. SPLEEN: Unremarkable. ADRENALS: Unremarkable. No mass. KIDNEYS AND URETERS: 1.3 centimeter left upper pole renal cyst. No hydronephrosis. No solid mass. VASCULATURE: Unremarkable. No aortic aneurysm. No aortic atherosclerotic calcification or mural plaque present. BOWEL: Unremarkable. No obstruction. No gross mural thickening. APPENDIX: Normal appendix. PERITONEUM: Unremarkable. No free fluid. No free air. LYMPH NODES: Unremarkable. No enlarged lymph nodes. BLADDER: Unremarkable. REPRODUCTIVE: Prominence of both ovaries as well as the endometrium; recommend gynecological consultation. BONES: No acute fracture. OTHER FINDINGS: None. IMPRESSION: Prominence of both ovaries as well as the endometrium; recommend gynecological consultation. Left upper pole renal cyst.
[2018-04-19 12:24] VITALS: BP 121/73; PULSE 69
== END 2018-04-19 14:07 | disposition home or self-care (01) ==
LOC: ED 06:49
DX: D25.9 Leiomyoma of uterus, unspecified (principal); N83.202 Unspecified ovarian cyst, left side; R10.9 Unspecified abdominal pain
CPT/HCPCS: 74177; 76830; 80053; 81001; 83690; 83735; 85025; 87086; 96361; 96374; 96375; 96376; 99285; J1885; J2270; J2405; J7030; Q9967

== ENCOUNTER 2018-05-15 09:42 | Emergency (ER) | payer OTHER ==
[2018-05-15 09:42] VITALS: BMI 35.2
[2018-05-15 11:00] VITALS: TEMP 98
[2018-05-15] MEDS ORDERED: Morphine 4 mg/ml ISec IVP STA ×2 (11:14→14:34)
[2018-05-15] MEDS: Sodium Chloride 0.9% 1,000 ML IV STA ×2 (11:41→12:56)
[2018-05-15 11:58] LABS: URINE BILIRUBIN NEGATIVE (NEGATIVE); URINE BLOOD MODERATE (NEGATIVE); URINE COLOR YELLOW (YELLOW); URINE GLUCOSE (UA) NEGATIVE (NEGATIVE); URINE LEUKOCYTE ESTERASE NEGATIVE Leu/uL (NEGATIVE); URINE PROTEIN NEGATIVE mg/dL (<30 mg/dL); URINE UROBILINOGEN 0.2 E.U./dL (<1 E.U./dL)
[2018-05-15 11:59] LABS: URINE APPEARANCE CLEAR (CLEAR)
[2018-05-15 12:03] LABS: URINE BACTERIA SMALL /hpf; URINE RBC 15 - 20 /hpf (0-2); URINE WBC 0 - 2 /hpf (0-6)
--- NOTE | 2018-05-15 12:10 | ED PDOC ---
Arrival/HPI - General Historian: Patient - History of Present Illness Narrative History of Present Illness (Text): 05/15/18 12:05 28-year-old female presents today with lower abdominal pain and cramping. Patient states she has a history of endometriosis and gastritis and every month when she gets her. She gets this exact severe pain for which she needs morphine and nausea medicine to control the pain. Patient denies fevers or chills. No chest pain or shortness of breath. She is complaining of nausea and vomiting. She denies diarrhea. Patient states she is on day 2 of her menstrual cycle. Patient states she is scheduled for surgery for her endometriosis in 4 days. Patient denies headaches dizziness or weakness. No urinary symptoms. No other complaints <Nataliya Lilly - Last Filed: 05/15/18 16:58> <Jhony Motta - Last Filed: 05/15/18 17:00> - General Chief Complaint: Abdominal Pain Time Seen by Provider: 05/15/18 10:16 Past Medical History - Provider Review Nursing Documentation Reviewed: Yes - Travel History Have you recently traveled outside [place] w/in the past 3 mons?: No - Infectious Disease Hx of Infectious Diseases: None - Past Medical History Past Medical History: No Previous - Cardiac Hx Cardiac Disorders: No - Pulmonary Hx Respiratory Disorders: Yes Hx Asthma: Yes - Neurological Hx Neurological Disorder: No - HEENT Hx HEENT Disorder: No - Renal Hx Renal Disorder: No Hx Kidney Stones: No - Endocrine/Metabolic Hx Endocrine Disorders: No - Hematological/Oncological Hx Blood Disorders: No - Integumentary Hx Dermatological Disorder: No - Musculoskeletal/Rheumatological Hx Musculoskeletal Disorders: No Hx Falls: No - Gastrointestinal Hx Gastrointestinal Disorders: Yes Hx Gastritis: Yes - Genitourinary/Gynecological Hx Genitourinary Disorders: No - Psychiatric Hx Psychophysiologic Disorder: No Hx Substance Use: Yes - Past Surgical History Past Surgical History: No Previous - Anesthesia Hx Anesthesia: No - Suicidal Assessment Feels Threatened In Home Enviroment: No <Nataliya Lilly - Last Filed: 05/15/18 16:58> Family/Social History Family/Social History: Unknown Family HX Smoking Status: Never Smoked Hx Alcohol Use: Yes (occasionally) Hx Substance Use: Yes Substance used: marijuana Hx Substance Use Treatment: No <Nataliya Lilly - Last Filed: 05/15/18 16:58> Allergies/Home Meds <Vitaliy Lillyina T - Last Filed: 05/15/18 16:58> <TolermelodieJhony - Last Filed: 05/15/18 17:00> Allergies/Adverse Reactions: Allergies metoclopramide [From Reglan] Adverse Reaction (Verified 05/15/18 11:01) ANAPHYLAXIS Review of Systems - Review of Systems Constitutional: absent: Fatigue, Fevers Respiratory: absent: SOB, Cough Cardiovascular: absent: Chest Pain, Palpitations Gastrointestinal: Abdominal Pain, Nausea, Vomiting. absent: Constipation, Diarrhea Genitourinary Female: absent: Dysuria, Frequency, Hematuria Musculoskeletal: absent: Arthralgias, Back Pain, Neck Pain Skin: absent: Rash, Pruritis Psychiatric: absent: Anxiety, Depression <Nataliya Lilly T - Last Filed: 05/15/18 16:58> Physical Exam Vital Signs Reviewed: Yes Vital Signs Temp Pulse Resp BP Pulse Ox 05/15/18 11:21 85 136/92 H 05/15/18 10:55 98 F 86 18 110/53 L 98 Temperature: Afebrile Blood Pressure: Normal Pulse: Regular Respiratory Rate: Normal Appearance: Positive for: Well-Appearing, Non-Toxic, Comfortable Pain Distress: None Mental Status: Positive for: Alert and Oriented X 3 - Systems Exam Head: Present: Atraumatic Mouth: Present: Moist Mucous Membranes Neck: Present: Normal Range of Motion Respiratory/Chest: Present: Clear to Auscultation, Good Air Exchange. No: Respiratory Distress, Accessory Muscle Use Cardiovascular: Present: Regular Rate and Rhythm, Normal S1, S2. No: Murmurs Abdomen: Present: Tenderness (+ lower abdominal tenderness), Normal Bowel Sounds. No: Distention, Peritoneal Signs, Rebound, Guarding Back: Present: Normal Inspection. No: CVA Tenderness, Midline Tenderness, Paraspinal Tenderness Upper Extremity: Present: Normal ROM Lower Extremity: Present: Normal ROM Neurological: Present: GCS=15, Speech Normal Skin: Present: Warm, Dry, Normal Color. No: Rashes Psychiatric: Present: Alert, Oriented x 3 <VijayaNataliya T - Last Filed: 05/15/18 16:58> Vital Signs Temp Pulse Resp BP Pulse Ox 05/15/18 13:50 70 19 119/73 100 05/15/18 11:21 85 136/92 H 05/15/18 10:55 98 F 86 18 110/53 L 98 <Jhony Motta - Last Filed: 05/15/18 17:00> Medical Decision Making ED Course and Treatment: 05/15/18 12:10 Patient is nontoxic well appearing with stable vital signs presenting with severe abdominal pain requesting a "cocktail of medications that she always gets when she has abdominal pain". morphine , zofran and pepcid ordered IV. unable to get IV line after multiple attempts by different Rns. morphine given IM zofran given ODT pt reassessment; minimal improvement in pain. spitting in er. no active vomiting noted. c/o nausea. Sales Order Administrator at bedside. Unable to obtain labs. 4th RN was able to get IV access and labs. morphine 4mg IV added, zofran 4 IV given, Pepcid 20mg IV given. CBC wnl CMP chloride; 112 Lipase wnl Urinalysis + blood ( pt currently menstrating) CAT scan ordered. Patient reassessment: pt feeling better. patient is refusing cat scan of the abdomen/pelvis. Discussed all results with patient in depth Patient has been advised to not leave the emergency room but has decided to go AGAINST MEDICAL ADVICE. The patient possesses capacity to make decisions and has voiced understanding to all my warnings of potential worsening of the condition for which medical care was sought. I have discussed all known and potential risks and consequences to the patient leaving AGAINST MEDICAL ADVICE. Patient is leaving against medical advise. AMA form signed. witness by JOAQUIN Mora. Impression: Abdominal pain RETURN IF YOU WISH TO CONTINUE YOUR CARE. pepcid 1 tablet daily. zofran 1 tablet every 8 hours as needed for nausea/vomiting. Follow up with primary care physician within the next 2 days Follow up with the [facility] RESEARCH ENGINEER within the next 2 days. Return immediately if symptoms worsen persist or if new symptoms develop: High fevers, increasing pain, vomiting, diarrhea or any other concerning symptoms develop Reassessment Condition: Re-examined, Improved - Lab Interpretations Lab Results: Urine Color Yellow (YELLOW) 05/15/18 11:45 Urine Appearance Clear (CLEAR) 05/15/18 11:45 Urine pH 6.0 (4.7-8.0) 05/15/18 11:45 Ur Specific [place] >= 1.030 (1.005-1.035) 05/15/18 11:45 Urine Protein Negative mg/dL (<30 mg/dL) 05/15/18 11:45 Urine Glucose (UA) Negative mg/dL (NEGATIVE) 05/15/18 11:45 Urine Ketones Negative mg/dL (NEGATIVE) 05/15/18 11:45 Urine Blood Moderate (NEGATIVE) H 05/15/18 11:45 Urine Nitrate Negative (NEGATIVE) 05/15/18 11:45 Urine Bilirubin Negative (NEGATIVE) 05/15/18 11:45 Urine Urobilinogen 0.2 E.U./dL (<1 E.U./dL) 05/15/18 11:45 Ur Leukocyte Esterase Negative Ronny/uL (NEGATIVE) 05/15/18 11:45 Urine RBC 15 - 20 /hpf (0-2) H 05/15/18 11:45 Urine WBC 0 - 2 /hpf (0-6) 05/15/18 11:45 Ur Epithelial Cells 4 - 5 /hpf (0-5) 05/15/18 11:45 Urine Bacteria Small /hpf (NONE) 05/15/18 11:45 - Medication Orders Current Medication Orders: Discontinued Medications Famotidine (Pepcid) 20 mg IVP STAT STA Stop: 05/15/18 11:15 Last Admin: 05/15/18 11:41 Dose: 20 mg IVP Administration Document 05/15/18 11:41 OCS (Rec: 05/15/18 11:41 OCS [id number]) Charges for Administration # of IVP Administrations 1 Sodium Chloride (Sodium Chloride 0.9%) 1,000 mls @ 999 mls/hr IV .Q1H1M STA Stop: 05/15/18 12:03 Last Admin: 05/15/18 11:41 Dose: 999 mls/hr eMAR Start Stop Document 05/15/18 11:41 OCS (Rec: 05/15/18 11:41 OCS [id number]) Intravenous Solution Start Date 05/15/18 Start Time 11:41 End Date 05/15/18 End time 12:42 Total Infusion Time 61 Morphine Sulfate (Morphine) 4 mg IVP STAT STA Stop: 05/15/18 11:15 Last Admin: 05/15/18 11:40 Dose: 4 mg MAR Pain Assessment Document 05/15/18 11:40 OCS (Rec: 05/15/18 11:40 OCS [id number]) Pain Reassessment Is this a pain reassessment? No Sleep Is patient sleeping during reassessment? No Presence of Pain Presence of Pain Yes Pain Scale Used Protocol: PSCALES Pain Scale Used Numeric Location Pain Location Body Site Abdomen Description Description Constant Intensity of Pain at present 10 Pain Behavior Moaning Crying Irritability Facial Grimacing Aggravating Factors ADL's IVP Administration Document 05/15/18 11:40 OCS (Rec: 05/15/18 11:40 OCS [email or web address]) Charges for Administration # of IVP Administrations 1 Ondansetron HCl (Zofran Inj) 4 mg IVP STAT STA Stop: 05/15/18 11:15 Last Admin: 05/15/18 11:40 Dose: 4 mg IVP Administration Document 05/15/18 11:40 OCS (Rec: 05/15/18 11:41 OCS [email or web address]) Charges for Administration # of IVP Administrations 1 <Nataliya Lilly T - Last Filed: 05/15/18 16:58> - Lab Interpretations Lab Results: Total Bilirubin 0.8 mg/dL (0.2-1.3) 05/15/18 14:40 AST 27 U/L (14-36) 05/15/18 14:40 ALT 25 U/L (7-56) 05/15/18 14:40 Alkaline Phosphatase 76 U/L (38-126) 05/15/18 14:40 Total Protein 8.3 g/dL (5.8-8.3) 05/15/18 14:40 Albumin 4.7 g/dL (3.0-4.8) 05/15/18 14:40 Globulin 3.6 gm/dL 05/15/18 14:40 Albumin/Globulin Ratio 1.3 (1.1-1.8) 05/15/18 14:40 Lipase 56 U/L (23-300) 05/15/18 14:40 Urine Color Yellow (YELLOW) 05/15/18 11:45 Urine Appearance Clear (CLEAR) 05/15/18 11:45 Urine pH 6.0 (4.7-8.0) 05/15/18 11:45 Ur Specific [place] >= 1.030 (1.005-1.035) 05/15/18 11:45 Urine Protein Negative mg/dL (<30 mg/dL) 05/15/18 11:45 Urine Glucose (UA) Negative mg/dL (NEGATIVE) 05/15/18 11:45 Urine Ketones Negative mg/dL (NEGATIVE) 05/15/18 11:45 Urine Blood Moderate (NEGATIVE) H 05/15/18 11:45 Urine Nitrate Negative (NEGATIVE) 05/15/18 11:45 Urine Bilirubin Negative (NEGATIVE) 05/15/18 11:45 Urine Urobilinogen 0.2 E.U./dL (<1 E.U./dL) 05/15/18 11:45 Ur Leukocyte Esterase Negative Ronny/uL (NEGATIVE) 05/15/18 11:45 Urine RBC 15 - 20 /hpf (0-2) H 05/15/18 11:45 Urine WBC 0 - 2 /hpf (0-6) 05/15/18 11:45 Ur Epithelial Cells 4 - 5 /hpf (0-5) 05/15/18 11:45 Urine Bacteria Small /hpf (NONE) 05/15/18 11:45 - RAD Interpretation Radiology Orders: 05/15/18 12:07 CHEST PORTABLE [RAD] Stat - Medication Orders Current Medication Orders: Discontinued Medications Famotidine (Pepcid) 20 mg IVP STAT STA Stop: 05/15/18 14:35 Last Admin: 05/15/18 14:44 Dose: 20 mg IVP Administration Document 05/15/18 14:44 OCS (Rec: 05/15/18 14:44 OCS [email or web address]) Charges for Administration # of IVP Administrations 1 Sodium Chloride (Sodium Chloride 0.9%) 1,000 mls @ 999 mls/hr IV .Q1H1M STA Stop: 05/15/18 12:03 Last Admin: 05/15/18 12:56 Dose: Not Given Non-Admin Reason: no iv access Sodium Chloride (Sodium Chloride 0.9%) 1,000 mls @ 999 mls/hr IV .Q1H1M STA Stop: 05/15/18 15:36 Last Admin: 05/15/18 14:45 Dose: 999 mls/hr eMAR Start Stop Document 05/15/18 14:45 OCS (Rec: 05/15/18 14:45 OCS [email or web address]) Intravenous Solution Start Date 05/15/18 Start Time 14:45 End Date 05/15/18 End time 15:46 Total Infusion Time 61 Morphine Sulfate (Morphine) 4 mg IM STAT STA Stop: 05/15/18 13:13 Last Admin: 05/15/18 13:17 Dose: 4 mg MAR Pain Assessment Document 05/15/18 13:17 OCS (Rec: 05/15/18 13:18 OCS [email or web address]) Pain Reassessment Is this a pain reassessment? No Sleep Is patient sleeping during reassessment? No Presence of Pain Presence of Pain Yes Pain Scale Used Protocol: [facility] Pain Scale Used Numeric Location Pain Location Body Site Abdomen Description Description Constant Intensity of Pain at present 10 Pain Behavior Moaning Crying Irritability Facial Grimacing Aggravating Factors ADL's IM Administration Charges Document 05/15/18 13:17 OCS (Rec: 05/15/18 13:18 OCS [id number]) Injection Site MAR Injection Site Right Arm Charges for Administration # of IM Administrations 1 Morphine Sulfate (Morphine) 4 mg IVP STAT STA Stop: 05/15/18 14:35 Last Admin: 05/15/18 14:44 Dose: 4 mg MAR Pain Assessment Document 05/15/18 14:44 OCS (Rec: 05/15/18 14:44 OCS [email or web address]) Pain Reassessment Is this a pain reassessment? Yes Sleep Is patient sleeping during reassessment? No Presence of Pain Presence of Pain Yes Pain Scale Used Protocol: [facility] Pain Scale Used Numeric Location Pain Location Body Site Abdomen Description Description Constant Intensity of Pain at present 8 Pain Behavior Moaning Crying Irritability Facial Grimacing Aggravating Factors ADL's IVP Administration Document 05/15/18 14:44 OCS (Rec: 05/15/18 14:44 OCS [email or web address]) Charges for Administration # of IVP Administrations 1 Ondansetron HCl (Zofran Odt) 4 mg PO STAT STA Stop: 05/15/18 13:07 Last Admin: 05/15/18 13:16 Dose: 4 mg Ondansetron HCl (Zofran Inj) 4 mg IVP STAT STA Stop: 05/15/18 14:35 Last Admin: 05/15/18 14:44 Dose: 4 mg IVP Administration Document 05/15/18 14:44 OCS (Rec: 05/15/18 14:44 OCS [email or web address]) Charges for Administration # of IVP Administrations 1 <ÁngelaJhony - Last Filed: 05/15/18 17:00> - PA / CAR SUPPLIER / Resident Statement / has reviewed & agrees with the documentation as recorded. <ÁngelaVitaliyJhnoy - Last Filed: 05/15/18 17:00> Disposition/Present on Arrival - Present on Arrival Any Indicators Present on Arrival: No History of DVT/PE: No History of Uncontrolled Diabetes: No Urinary Catheter: No History of Decub. Ulcer: No History Surgical Site Infection Following: None - Disposition Have Diagnosis and Disposition been Completed?: Yes Disposition Time: 15:30 Patient Plan: Other (AMA) <VijayaNataliya - Last Filed: 05/15/18 16:58> <ÁngelaJhony - Last Filed: 05/15/18 17:00> - Disposition Diagnosis: Abdominal pain, Vomiting, Nausea Disposition: AGAINST MEDICAL ADVICE Patient Problems: Current Active Problems Problem Status Onset Abdominal pain Acute Nausea Acute Vomiting Acute Condition: IMPROVED Discharge Instructions (ExitCare): Acute Abdomen (Belly Pain) Additional Instructions: RETURN IF YOU WISH TO CONTINUE YOUR CARE. pepcid 1 tablet daily. zofran 1 tablet every 8 hours as needed for nausea/vomiting. Follow up with primary care physician within the next 2 days Follow up with the FI[employer] PRE[employer] RESEARCH ENGINEER within the next 2 days. Return immediately if symptoms worsen persist or if new symptoms develop: High fevers, increasing pain, vomiting, diarrhea or any other concerning symptoms develop Prescriptions: Famotidine [Pepcid] 20 mg PO DAILY #30 tab Ondansetron [Zofran] 4 mg PO Q8H PRN #10 tab PRN Reason: Nausea/Vomiting oxyCODONE/Acetaminophen [Percocet 5/325 mg Tab] 1 tab PO Q6H PRN #6 tab PRN Reason: moderate to severe pain Referrals: Jay Lugo DO [Staff Provider] - Follow up with primary Tosha Fagan MD [Staff Provider] - Follow up with primary Forms: [employer] ([place]ican), WORK NOTE
--- NOTE | 2018-05-15 12:30 | RAD ---
Date of service: 05/15/2018 HISTORY: vomiting/abd pain COMPARISON: 06/15/2017 FINDINGS: LUNGS: No active pulmonary disease. PLEURA: No significant pleural effusion identified, no pneumothorax apparent. CARDIOVASCULAR: No aortic atherosclerotic calcification present. Normal cardiac size. No pulmonary vascular congestion. OSSEOUS STRUCTURES: No significant abnormalities. VISUALIZED UPPER ABDOMEN: Normal. OTHER FINDINGS: None. IMPRESSION: No active disease.
[2018-05-15] MEDS ORDERED: Morphine 4 mg/ml ISec IM STA (13:12)
[2018-05-15 13:51] VITALS: BP 119/73; PULSE 70; RESP 19
[2018-05-15] MEDS ORDERED: Sodium Chloride 0.9% 1,000 ML IV STA (14:36)
[2018-05-15 14:51] LABS: BASO # 0.02 K/mm3 (0.0-2.0); BASO % 0.2 % (0.0-3.0); EOS # 0.1 (0.0-0.7); EOS % 0.8 % (1.5-5.0); GRAN # 7.71 (1.4-6.5); GRAN % 83.2 % (50.0-68.0); HEMOGLOBIN 14.2 g/dL (12.0-16.0); LYMPH # 1.1 (1.2-3.4); LYMPH % 11.3 % (22.0-35.0); MEAN CELL VOLUME 91.6 fl (80.0-105.0); MEAN CORPUSCULAR HEMOGLOBIN 30.5 pg (25.0-35.0); MEAN CORPUSCULAR HGB CONC 33.3 g/dl (31.0-37.0); MEAN PLATELET VOLUME 11.1 fl (7.0-11.0); MONO # 0.4 (0.1-0.6); MONO % 4.5 % (1.0-6.0); RBC 4.66 10^6/uL (3.5-6.1); RED CELL DISTRIBUTION WIDTH 13.2 % (11.5-14.5); WHITE BLOOD COUNT 9.3 10^3/uL (4.5-11.0)
[2018-05-15 15:24] LABS: ALB/GLOB RATIO 1.3 (1.1-1.8); ALBUMIN 4.7 g/dL (3.0-4.8); ALT/SGPT 25 U/L (7-56); AST/SGOT 27 U/L (14-36); BLOOD UREA NITROGEN 8 mg/dL (7-21); CALCIUM 9.6 mg/dL (8.4-10.5); GFR NON-AFRICAN AMERICAN > 60; LIPASE 56 U/L (23-300)
[2018-05-15 17:04] VITALS: O2SAT 98
== END 2018-05-15 17:02 | disposition left against medical advice (07) ==
LOC: ED 09:42
DX: R10.9 Unspecified abdominal pain (principal); R11.2 Nausea with vomiting, unspecified
CPT/HCPCS: 71045; 80053; 81001; 83690; 85025; 96361; 96372; 96374; 96375; 99284; J2270; J2405; J7030

== ENCOUNTER 2018-05-26 19:49 | Emergency (ER) | payer OTHER ==
[2018-05-26 20:05] VITALS: BMI 29.9
[2018-05-26 20:24] VITALS: O2SAT 100
[2018-05-26] MEDS ORDERED: Sodium Chloride 0.9% 1,000 ML IV STA (20:24)
--- NOTE | 2018-05-26 20:39 | ED PDOC ---
Arrival/HPI - General Chief Complaint: GI Problem Time Seen by Provider: 05/26/18 20:00 Historian: Patient - History of Present Illness Narrative History of Present Illness (Text): 05/26/18 20:35 28 year old female, whose past medical history includes asthma, uterine fibroids, endometriosis and gastritis, presents complaining of chronic nausea and vomiting for the past couple of days. Patient states her appetite is poor. She reports she saw her STACKER doctor this past and had a laparoscopy procedure. Patient is requesting morphine for pain. Patient denies any fever, chills, chest pain, shortness of breath, diarrhea, urinary symptoms, back pain, neck pain, headache, dizziness, or any other complaints. PMD: Dr. Garcia Time/Duration: Other (couple days) Symptom Onset: Gradual Symptom Course: Unchanged Activities at Onset: Light Context: Home Past Medical History - Provider Review Nursing Documentation Reviewed: Yes - Infectious Disease Hx of Infectious Diseases: None - Past Medical History Past Medical History: No Previous - Cardiac Hx Cardiac Disorders: No - Pulmonary Hx Respiratory Disorders: Yes Hx Asthma: Yes - Neurological Hx Neurological Disorder: No - HEENT Hx HEENT Disorder: No - Renal Hx Renal Disorder: No Hx Kidney Stones: No - Endocrine/Metabolic Hx Endocrine Disorders: No - Hematological/Oncological Hx Blood Disorders: No - Integumentary Hx Dermatological Disorder: No - Musculoskeletal/Rheumatological Hx Musculoskeletal Disorders: No Hx Falls: No - Gastrointestinal Hx Gastrointestinal Disorders: Yes Hx Gastritis: Yes - Genitourinary/Gynecological Hx Genitourinary Disorders: No - Psychiatric Hx Psychophysiologic Disorder: No Hx Substance Use: Yes - Past Surgical History Past Surgical History: No Previous - Anesthesia Hx Anesthesia: No Hx Anesthesia Reactions: No Hx Malignant Hyperthermia: No - Suicidal Assessment Feels Threatened In Home Enviroment: No Family/Social History - Physician Review Nursing Documentation Reviewed: Yes Family/Social History: No Known Family HX Smoking Status: Never Smoked Hx Alcohol Use: Yes (occasionally) Hx Substance Use: Yes Substance used: marijuana Hx Substance Use Treatment: No Allergies/Home Meds Allergies/Adverse Reactions: Allergies metoclopramide [From Reglan] Adverse Reaction (Verified 05/15/18 11:01) ANAPHYLAXIS Review of Systems - Physician Review All systems were reviewed & negative as marked: Yes - Review of Systems Constitutional: absent: Fevers, Other (Chill) Respiratory: absent: SOB Cardiovascular: absent: Chest Pain Gastrointestinal: Nausea, Vomiting. absent: Diarrhea Genitourinary Female: absent: Dysuria, Frequency, Hematuria Musculoskeletal: absent: Back Pain, Neck Pain Neurological: absent: Headache, Dizziness Physical Exam Vital Signs Reviewed: Yes Vital Signs Pulse Resp BP Pulse Ox 05/26/18 20:04 62 18 153/77 H 100 Temperature: Afebrile Blood Pressure: Hypertensive Pulse: Regular Respiratory Rate: Normal Appearance: Positive for: Well-Appearing, Non-Toxic, Comfortable Pain Distress: None Mental Status: Positive for: Alert and Oriented X 3 - Systems Exam Head: Present: Atraumatic, Normocephalic Pupils: Present: PERRL Extroacular Muscles: Present: EOMI Conjunctiva: Present: Normal Mouth: Present: Moist Mucous Membranes Neck: Present: Normal Range of Motion Respiratory/Chest: Present: Clear to Auscultation, Good Air Exchange. No: Respiratory Distress, Accessory Muscle Use Cardiovascular: Present: Regular Rate and Rhythm, Normal S1, S2. No: Murmurs Abdomen: Present: Tenderness (diffuse abdominal tenderness. No active vomiting). No: Distention, Peritoneal Signs Back: Present: Normal Inspection Upper Extremity: Present: Normal Inspection. No: Cyanosis, Edema Lower Extremity: Present: Normal Inspection. No: Edema Neurological: Present: GCS=15, CN II-XII Intact, Speech Normal Skin: Present: Warm, Dry, Normal Color. No: Rashes Psychiatric: Present: Alert, Oriented x 3, Normal Insight, Normal Concentration Medical Decision Making ED Course and Treatment: 05/26/18 20:37 Impression: 28 year old female presents complaining of chronic nausea and vomiting for the past couple of days associated with poor appetite. Plan: -- Labs -- Pepcid, IV Fluid, Zofran Inj -- Urine Culture -- POC Urine test -- Urinalysis -- Reassess and disposition Prior Visits: Notes and results from previous visits were reviewed. Progress Notes: PNP aware and verified patient had prescription for Tylenol #3 prescribed 8 days ago. 05/26/18 23:05 On re-evaluation, patient is in no acute distress. I have discussed the results and plan with the patient, who expresses understanding. Patient in agreement with plan to be discharged home. Patient is stable for discharge. Patient was instructed to follow up with physician or return if symptoms worsen or new concerning symptoms arise. - Lab Interpretations I have reviewed the lab results: Yes - Medication Orders Current Medication Orders: Sodium Chloride (Sodium Chloride 0.9%) 1,000 mls @ 1,000 mls/hr IV .Q1H STA Stop: 05/26/18 21:23 Discontinued Medications Famotidine (Pepcid) 20 mg IVP STAT STA Stop: 05/26/18 20:25 Ondansetron HCl (Zofran Inj) 4 mg IVP STAT STA Stop: 05/26/18 20:25 - Scribe Statement The provider has reviewed the documentation as recorded by the Mitul Hughes Provider Scribe Attestation: All medical record entries made by the Scribe were at my direction and personally dictated by me. I have reviewed the chart and agree that the record accurately reflects my personal performance of the history, physical exam, medical decision making, and the department course for this patient. I have also personally directed, reviewed, and agree with the discharge instructions and disposition. Disposition/Present on Arrival - Present on Arrival Any Indicators Present on Arrival: No History of DVT/PE: No History of Uncontrolled Diabetes: No Urinary Catheter: No History of Decub. Ulcer: No History Surgical Site Infection Following: None - Disposition Have Diagnosis and Disposition been Completed?: Yes Diagnosis: Vomiting, Abdominal pain Disposition: HOME/ ROUTINE Disposition Time: 22:30 Condition: IMPROVED Discharge Instructions (ExitCare): Acute Abdomen (Belly Pain), Adult (DC) Additional Instructions: DMITRIY THOMPSON, thank you for letting us take care of you today. The emergency medical care you received today was directed at your acute symptoms. If you were prescribed any medication, please fill it and take as directed. It may take several days for your symptoms to resolve. Return to the Emergency Department if your symptoms worsen, do not improve, or if you have any other problems. Please contact your doctor or call one of the physicians/clinics you have been referred to that are listed on the Patient Visit Information form that is incl uded in your discharge packet. Bring any paperwork you were given at discharge with you along with any medications you are taking to your follow up visit. Our treatment cannot replace ongoing medical care by a primary care provider outside of the emergency department. Thank you for allowing the [facility] team to be part of your care today. Follow up with your STACKER doctor in 1-2 days for re-evaluation and and further management. Prescriptions: Famotidine [Pepcid] 20 mg PO BID #20 tab Referrals: FAMILY PROVIDER,NO [Primary Care Provider] - Follow up with primary Forms: [email or web address] (Turkmen)
[2018-05-26 21:03] LABS: BASO # 0.02 K/mm3 (0.0-2.0); BASO % 0.2 % (0.0-3.0); GRAN # 6.6 (1.4-6.5); GRAN % 75.8 % (50.0-68.0); HEMOGLOBIN 13.3 g/dL (12.0-16.0); LYMPH # 1.3 (1.2-3.4); LYMPH % 14.4 % (22.0-35.0); MEAN CELL VOLUME 90.4 fl (80.0-105.0); MEAN CORPUSCULAR HEMOGLOBIN 30.3 pg (25.0-35.0); MEAN CORPUSCULAR HGB CONC 33.5 g/dl (31.0-37.0); MONO # 0.8 (0.1-0.6); MONO % 9.6 % (1.0-6.0); RBC 4.39 10^6/uL (3.5-6.1); RED CELL DISTRIBUTION WIDTH 13.1 % (11.5-14.5); WHITE BLOOD COUNT 8.7 10^3/uL (4.5-11.0)
[2018-05-26 21:05] LABS: URINE BILIRUBIN SMALL (NEGATIVE); URINE BLOOD TRACE-INTACT (NEGATIVE); URINE GLUCOSE (UA) NEGATIVE (NEGATIVE); URINE LEUKOCYTE ESTERASE NEGATIVE Leu/uL (NEGATIVE); URINE PROTEIN 100 mg/dL (<30 mg/dL); URINE UROBILINOGEN 0.2 E.U./dL (<1 E.U./dL)
[2018-05-26 21:06] LABS: URINE APPEARANCE CLEAR (CLEAR); URINE COLOR DARK YELLOW (YELLOW)
[2018-05-26] MEDS ORDERED: Morphine 2 mg/ml ISec IVP STA (21:06)
[2018-05-26 21:11] LABS: URINE RBC 0 - 2 /hpf (0-2)
[2018-05-26 21:20] LABS: ALB/GLOB RATIO 1.3 (1.1-1.8); ALT/SGPT 25 U/L (7-56); AST/SGOT 33 U/L (14-36); BLOOD UREA NITROGEN 12 mg/dL (7-21); CALCIUM 10.1 mg/dL (8.4-10.5); GFR NON-AFRICAN AMERICAN > 60; LIPASE 61 U/L (23-300)
[2018-05-26] MEDS ORDERED: Iohexol 350 MG/100 ML VIAL ONE (21:27)
[2018-05-26 22:05] VITALS: TEMP 98.1
[2018-05-26 23:13] VITALS: BP 129/78; PULSE 68; RESP 17
--- NOTE | 2018-05-27 11:09 | CT ---
Date of service: 05/26/2018 PROCEDURE: CT Abdomen and Pelvis with contrast HISTORY: diffuse abdominal pain COMPARISON: 04/19/2018 TECHNIQUE: Contrast dose: 100 mL Omnipaque 350 Radiation dose: Total exam DLP = 606.42 mGy-cm. This CT exam was performed using one or more of the following dose reduction techniques: Automated exposure control, adjustment of the mA and/or kV according to patient size, and/or use of iterative reconstruction technique. FINDINGS: LOWER THORAX: Unremarkable. LIVER: Unremarkable. No gross lesion or ductal dilatation. GALLBLADDER AND BILE DUCTS: Unremarkable. PANCREAS: Unremarkable. No gross lesion or ductal dilatation. SPLEEN: Unremarkable. ADRENALS: Unremarkable. No mass. KIDNEYS AND URETERS: Left lower pole low-density renal mass, 1.5 cm. On examination of 10/13/2013, this measured 1.1 cm. Correlation with abdominal ultrasound of 10/18/2016 demonstrated septated 1.4 cm cyst in the lower pole left kidney at that time. Not suspicious for malignancy. VASCULATURE: Unremarkable. No aortic aneurysm. No aortic atherosclerotic calcification or mural plaque present. BOWEL: Unremarkable. No obstruction. No gross mural thickening. APPENDIX: Normal appendix. PERITONEUM: No ascites. No pneumoperitoneum. Incidentally noted mild stranding of the greater omental fat deep to the anterior abdominal wall (series 3, image 64 [id number] 74). Nonspecific. Consider follow-up examination. LYMPH NODES: Unremarkable. No enlarged lymph nodes. BLADDER: Nondistended REPRODUCTIVE: Normal uterus. 2.0 cm right ovarian cyst, presumed physiologic. BONES: No acute fracture. OTHER FINDINGS: None. IMPRESSION: Nonspecific stranding of the greater omental fat. No evidence of jarred omental metastasis. No other significant acute abnormality. Recommend follow-up CT examination. The preliminary findings for this examination were reported by [facility] at 10:30 p.m. on 05/26/2018. There is discordance of this report with the preliminary findings. The findings noted above are not felt to reflect mesenteric panniculitis. The possibility of a nonspecific inflammatory process involving the greater omentum should be considered. Follow-up with contrast-enhanced CT is advised.
== END 2018-05-26 23:12 | disposition home or self-care (01) ==
LOC: ED 19:49
DX: R10.9 Unspecified abdominal pain (principal); R11.10 Vomiting, unspecified; D25.9 Leiomyoma of uterus, unspecified
CPT/HCPCS: 74177; 80053; 81001; 81025; 83690; 83735; 85025; 87086; 96361; 96374; 96375; 96376; 99284; J2270; J2405; J7030; Q9967

== ENCOUNTER 2018-05-28 01:22 | Inpatient (IN) | payer OTHER ==
[2018-05-28 01:23] VITALS: BMI 29.9
[2018-05-28] MEDS ORDERED: Morphine 4 mg/ml ISec IVP STA (01:48)
[2018-05-28] MEDS ORDERED: Sodium Chloride 0.9% 1,000 ML IV STA (01:48)
--- NOTE | 2018-05-28 02:06 | ED PDOC ---
Arrival/HPI - General Chief Complaint: GI Problem Time Seen by Provider: 05/28/18 01:37 Historian: Patient - History of Present Illness Narrative History of Present Illness (Text): 05/28/18 02:03 A 28 year old female, whose past medical history includes asthma, uterine fibroids, endometriosis and gastritis, presents to the emergency department with a complaint of abdominal pain and vomiting. Patient reports several episodes of vomiting today. She also notes that her abdominal pain is all throughout her abdomen. She denies fevers, chills, headache, dizziness, chest pain, shortness of breath, dyspnea on exertion, cough, nausea, diarrhea, back pain, neck pain, urinary/bowel changes, or any other complaint. Time/Duration: Other (Several Days) Symptom Onset: Sudden Symptom Course: Unchanged Activities at Onset: Rest, Light Context: Home Past Medical History - Provider Review Nursing Documentation Reviewed: Yes - Infectious Disease Hx of Infectious Diseases: None - Past Medical History Past Medical History: No Previous - Cardiac Hx Cardiac Disorders: No - Pulmonary Hx Respiratory Disorders: Yes Hx Asthma: Yes - Neurological Hx Neurological Disorder: No - HEENT Hx HEENT Disorder: No - Renal Hx Renal Disorder: No Hx Kidney Stones: No - Endocrine/Metabolic Hx Endocrine Disorders: No - Hematological/Oncological Hx Blood Disorders: No - Integumentary Hx Dermatological Disorder: No - Musculoskeletal/Rheumatological Hx Musculoskeletal Disorders: No Hx Falls: No - Gastrointestinal Hx Gastrointestinal Disorders: Yes Hx Gastritis: Yes - Genitourinary/Gynecological Hx Genitourinary Disorders: No - Psychiatric Hx Psychophysiologic Disorder: No Hx Substance Use: Yes - Past Surgical History Past Surgical History: No Previous - Anesthesia Hx Anesthesia: No Hx Anesthesia Reactions: No Hx Malignant Hyperthermia: No - Suicidal Assessment Feels Threatened In Home Enviroment: No Family/Social History - Physician Review Nursing Documentation Reviewed: Yes Family/Social History: No Known Family HX Smoking Status: Never Smoked Hx Alcohol Use: Yes (occasionally) Hx Substance Use: Yes Substance used: marijuana Hx Substance Use Treatment: No Allergies/Home Meds Allergies/Adverse Reactions: Allergies metoclopramide [From Reglan] Adverse Reaction (Verified 05/28/18 01:29) ANAPHYLAXIS Review of Systems - Physician Review All systems were reviewed & negative as marked: Yes - Review of Systems Constitutional: absent: Fevers Respiratory: absent: SOB, Cough Cardiovascular: absent: Chest Pain, KIRAN Gastrointestinal: Abdominal Pain, Vomiting. absent: Stool Changes, Diarrhea, Nausea Genitourinary Female: absent: Urine Output Changes Musculoskeletal: absent: Back Pain, Neck Pain Neurological: absent: Headache, Dizziness Physical Exam Vital Signs Reviewed: Yes Vital Signs Pulse Resp BP Pulse Ox 05/28/18 01:31 74 16 151/88 H 100 Temperature: Afebrile Blood Pressure: Hypertensive Pulse: Regular Respiratory Rate: Normal Appearance: Positive for: Well-Appearing, Non-Toxic, Comfortable Pain Distress: None Mental Status: Positive for: Alert and Oriented X 3 - Systems Exam Head: Present: Atraumatic, Normocephalic Pupils: Present: PERRL Extroacular Muscles: Present: EOMI Conjunctiva: Present: Normal Mouth: Present: Moist Mucous Membranes Neck: Present: Normal Range of Motion Respiratory/Chest: Present: Clear to Auscultation, Good Air Exchange. No: Respiratory Distress, Accessory Muscle Use Cardiovascular: Present: Regular Rate and Rhythm, Normal S1, S2. No: Murmurs Abdomen: Present: Tenderness (Tender in all quadrants). No: Distention, Peritoneal Signs Back: Present: Normal Inspection Upper Extremity: Present: Normal Inspection. No: Cyanosis, Edema Lower Extremity: Present: Normal Inspection. No: Edema Neurological: Present: GCS=15, CN II-XII Intact, Speech Normal Skin: Present: Warm, Dry, Normal Color. No: Rashes Psychiatric: Present: Alert, Oriented x 3, Normal Insight, Normal Concentration Medical Decision Making ED Course and Treatment: 05/28/18 02:05 Impression: A 28 year old female presents to the emergency department with a complaint of abdominal pain and vomiting. Plan: -- Abdomen/Pelvis CT -- Urinalysis -- Labs -- Morphine, Zofran, and IV Fluids -- Reassess and disposition Prior Visits: Notes and results from previous visits were reviewed. Progress Notes: EXAM: CT Abdomen and Pelvis with IV contrast IMPRESSION: 1. Large amount of hyperdense sludge is noted in the gallbladder. 2. Simple 2 cm right ovarian cyst is seen. 3. Mild nonspecific mesenteric fat stranding noted in the mid abdomen adjacent to anterior abdominal wall compatible with mesenteric panniculitis. 4. No significant change. Electronically signed on May 28, 2018 4:16:42 AM EST by: Patrick Bowman M.D., [place] Certified By [facility] [employer] [facility] Fellowship Trained MRI and CT Specialist 05/28/18 04:55: Case discussed with medical officer. 05/28/18 05:10: Case discussed with Dr. Rob Estevez. - Lab Interpretations I have reviewed the lab results: Yes - RAD Interpretation Radiology Orders: 05/28/18 01:48 ABD PELVIS PO & IV CONTRAST [CT] Stat - EKG Interpretation Interpreted by ED Physician: Yes Type: 12 lead EKG - Medication Orders Current Medication Orders: Sodium Chloride (Sodium Chloride 0.9%) 1,000 mls @ 1,000 mls/hr IV .Q1H STA Stop: 05/28/18 02:47 Morphine Sulfate (Morphine) 4 mg IVP STAT STA Stop: 05/28/18 01:49 Ondansetron HCl (Zofran Inj) 4 mg IVP STAT STA Stop: 05/28/18 01:49 - Scribe Statement The provider has reviewed the documentation as recorded by the Scribe Tanya Henson Provider Scribe Attestation: All medical record entries made by the Scribe were at my direction and personally dictated by me. I have reviewed the chart and agree that the record accurately reflects my personal performance of the history, physical exam, medical decision making, and the department course for this patient. I have also personally directed, reviewed, and agree with the discharge instructions and disposition. Disposition/Present on Arrival - Present on Arrival Any Indicators Present on Arrival: No History of DVT/PE: No History of Uncontrolled Diabetes: No Urinary Catheter: No History of Decub. Ulcer: No History Surgical Site Infection Following: None - Disposition Have Diagnosis and Disposition been Completed?: Yes Diagnosis: Abdominal pain, Vomiting Disposition: HOSPITALIZED Disposition Time: 05:10 Patient Problems: Current Active Problems Problem Status Onset History of endometriosis Acute Condition: FAIR
[2018-05-28 02:36] LABS: VENOUS BLOOD GAS BASE EXCESS -3.3 mmol/L (0.0-2.0); VENOUS BLOOD GAS PO2 38 mm/Hg (30-55); VENOUS BLOOD PH 7.38 (7.32-7.43)
[2018-05-28 02:37] LABS: BASO # 0.02 K/mm3 (0.0-2.0); BASO % 0.3 % (0.0-3.0); EOS % 0.1 % (1.5-5.0); GRAN # 5.55 (1.4-6.5); GRAN % 69.7 % (50.0-68.0); HEMOGLOBIN 12.7 g/dL (12.0-16.0); LYMPH # 1.7 (1.2-3.4); LYMPH % 20.9 % (22.0-35.0); MEAN CORPUSCULAR HEMOGLOBIN 30.1 pg (25.0-35.0); MEAN CORPUSCULAR HGB CONC 33.1 g/dl (31.0-37.0); MEAN PLATELET VOLUME 10.9 fl (7.0-11.0); MONO # 0.7 (0.1-0.6); RBC 4.22 10^6/uL (3.5-6.1); RED CELL DISTRIBUTION WIDTH 13.3 % (11.5-14.5)
[2018-05-28 02:38] LABS: URINE BILIRUBIN SMALL (NEGATIVE); URINE BLOOD TRACE-INTACT (NEGATIVE); URINE GLUCOSE (UA) NEGATIVE (NEGATIVE); URINE LEUKOCYTE ESTERASE NEGATIVE Leu/uL (NEGATIVE); URINE PROTEIN 100 mg/dL (<30 mg/dL); URINE UROBILINOGEN 0.2 E.U./dL (<1 E.U./dL)
[2018-05-28 02:44] LABS: INR 1.19; PROTHROMBIN TIME 13.6 SECONDS (9.4-12.5)
[2018-05-28 02:46] LABS: ALB/GLOB RATIO 1.3 (1.1-1.8); ALBUMIN 4.7 g/dL (3.0-4.8); ALT/SGPT 21 U/L (7-56); AST/SGOT 28 U/L (14-36); BLOOD UREA NITROGEN 13 mg/dL (7-21); CALCIUM 9.7 mg/dL (8.4-10.5); GFR NON-AFRICAN AMERICAN > 60; LIPASE 133 U/L (23-300)
[2018-05-28] MEDS ORDERED: Iohexol 240 (50 ml) ONE (02:48)
[2018-05-28 02:49] LABS: URINE APPEARANCE CLEAR (CLEAR); URINE COLOR YELLOW (YELLOW)
[2018-05-28] MEDS ORDERED: Potassium Chloride 20 mEq ER Tab PO STA (02:50)
[2018-05-28 02:56] LABS: URINE RBC 0 - 2 /hpf (0-2)
[2018-05-28 02:57] LABS: URINE BACTERIA OCC /hpf; URINE EPITHELIAL CELLS MANY /hpf (0-5)
[2018-05-28] MEDS ORDERED: Iohexol 350 MG/100 ML VIAL ONE (03:47)
[2018-05-28] MEDS ORDERED: Morphine 2 mg/ml ISec IVP STA (04:22)
[2018-05-28] MEDS ORDERED: Albuterol 0.083% Inhal Sol (2.5 mg/3 mL) UD IH PRN (06:06)
[2018-05-28] MEDS: Morphine 2 mg/ml ISec IVP PRN ×3 (06:47→14:38)
[2018-05-28] MEDS: metroNIDAZOLE IV 500 mg/100 ml 500 MG/100 ML BAG IVPB SCH ×3 (06:47→21:01)
--- NOTE | 2018-05-28 07:01 | CP.PCM.HP ---
History of Present Illness - History of Present Illness History of Present Illness: Raymundo Agarwal DO, PGY1. H&P for Dr. Rob Mullins: abdominal pain 28 y/o female with PMH of asthma, endometrial fibroid, endometriosis, gastritis presents to the ED with diffuse lower abdominal pain x4 days. Pain is 4-10/10, pressure-like, no radiation, no alleviating or worsening factors. Pain is associated with nausea and multiple episodes of vomiting daily with only one bloody vomiting episode. Patient states that she came to ED 3 days ago and discharged on percocet, zofran but her symptoms did not improve and getting worse. She did not have bowel movement, did not tolerate oral intake since her symptoms started. She has endometriosis that is currently treated by her OBG. Her LMP was last week. She denied vaginal bleeding/discharge, hematochezia, melena, fever, chills, SOB, palpitation, chest pain. 12 points ROS reviewed with pertinent positive above PMH: asthma, endometrial fibroid, endometriosis, gastritis PSH: none All: metoclopramide Meds: zofran, percocet FH: non contributory SH: denied alcohol, smoking, drug use Present on Admission - Present on Admission Any Indicators Present on Admission: No Past Patient History - Infectious Disease Hx of Infectious Diseases: None - Past Social History Smoking Status: Never Smoked - CARDIAC Hx Cardiac Disorders: No - PULMONARY Hx Respiratory Disorders: Yes Hx Asthma: Yes - NEUROLOGICAL Hx Neurological Disorder: No - HEENT Hx HEENT Problems: No - RENAL Hx Chronic Kidney Disease: No Hx Kidney Stones: No - ENDOCRINE/METABOLIC Hx Endocrine Disorders: No - HEMATOLOGICAL/ONCOLOGICAL Hx Blood Disorders: No - INTEGUMENTARY Hx Dermatological Problems: No - MUSCULOSKELETAL/RHEUMATOLOGICAL Hx Musculoskeletal Disorders: No Hx Falls: No - GASTROINTESTINAL Hx Gastrointestinal Disorders: Yes Hx Gastritis: Yes - GENITOURINARY/GYNECOLOGICAL Hx Genitourinary Disorders: No - PSYCHIATRIC Hx Psychophysiologic Disorder: No Hx Substance Use: Yes - SURGICAL HISTORY Hx Surgeries: No - ANESTHESIA Hx Anesthesia: No Hx Anesthesia Reactions: No Hx Malignant Hyperthermia: No Meds Allergies/Adverse Reactions: Allergies Allergy/AdvReac Type Severity Reaction Status Date / Time metoclopramide [From Reglan] AdvReac ANAPHYLAXIS Verified 05/28/18 01:29 Physical Exam - Constitutional Appears: Well, No Acute Distress - Head Exam Head Exam: ATRAUMATIC, NORMAL INSPECTION, NORMOCEPHALIC - Eye Exam Eye Exam: EOMI, Normal appearance, PERRL Pupil Exam: NORMAL ACCOMODATION, PERRL - ENT Exam ENT Exam: Mucous Membranes Dry - Neck Exam Neck exam: Positive for: Normal Inspection - Respiratory Exam Respiratory Exam: Clear to Auscultation Bilateral, NORMAL BREATHING PATTERN. absent: Rales, Wheezes - Cardiovascular Exam Cardiovascular Exam: REGULAR RHYTHM, +S1, +S2. absent: Gallop, JVD, Rubs - GI/Abdominal Exam GI & Abdominal Exam: Guarding, Hypoactive Bowel Sounds, Normal Bowel Sounds, Soft, Tenderness (diffuse lower abd tenderness to palpate). absent: Mass, Organomegaly, Rebound, Rigid - Extremities Exam Extremities exam: Positive for: normal capillary refill, normal inspection, pedal pulses present - Back Exam Back exam: NORMAL INSPECTION - Neurological Exam Neurological exam: Alert, CN II-XII Intact, Oriented x3, Reflexes Normal - Psychiatric Exam Psychiatric exam: Anxious - Skin Skin Exam: Dry, Intact, Normal Color, Warm Results - Vital Signs Recent Vital Signs: Last Vital Signs Temp Pulse 65 05/28/18 05:58 Resp 17 05/28/18 05:58 BP 124/70 05/28/18 05:58 Pulse Ox 99 05/28/18 05:58 - Labs Result Diagrams: 05/28/18 02:10 05/28/18 02:10 Labs: Laboratory Results - last 24 hr 05/28/18 05/28/18 05/28/18 02:10 02:10 02:10 WBC 8.0 RBC 4.22 Hgb 12.7 Hct 38.4 MCV 91.0 MCH 30.1 MCHC 33.1 RDW 13.3 Plt Count 270 MPV 10.9 Gran % 69.7 H Lymph % (Auto) 20.9 L [place] % (Auto) 9.0 H Eos % (Auto) 0.1 L Baso % (Auto) 0.3 Gran # 5.55 Lymph # (Auto) 1.7 [place] # (Auto) 0.7 H Eos # (Auto) 0.0 Baso # (Auto) 0.02 PT 13.6 H INR 1.19 APTT 26.0 pO2 VBG pH VBG pCO2 VBG HCO3 VBG Total CO2 VBG O2 Sat (Calc) VBG Base Excess VBG Potassium Sodium 145 Chloride 111 H Glucose Lactate FiO2 Potassium 3.2 L Carbon Dioxide 21 Anion Gap 16 BUN 13 Creatinine 1.0 Est GFR ( Amer) > 60 Est GFR (Non-Af Amer) > 60 Random Glucose 102 Calcium 9.7 Magnesium 2.3 H Total Bilirubin 0.8 AST 28 ALT 21 Alkaline Phosphatase 66 Total Protein 8.1 Albumin 4.7 Globulin 3.5 Albumin/Globulin Ratio 1.3 Lipase 133 Venous Blood Potassium Urine Color Urine Appearance Urine pH Ur Specific [place] Urine Protein Urine Glucose (UA) Urine Ketones Urine Blood Urine Nitrate Urine Bilirubin Urine Urobilinogen Ur Leukocyte Esterase Urine RBC Urine WBC Ur Epithelial Cells Urine Bacteria 05/28/18 05/28/18 02:10 02:10 WBC RBC Hgb Hct MCV MCH MCHC RDW Plt Count MPV Gran % Lymph % (Auto) [place] % (Auto) Eos % (Auto) Baso % (Auto) Gran # Lymph # (Auto) [place] # (Auto) Eos # (Auto) Baso # (Auto) PT INR APTT pO2 38 VBG pH 7.38 VBG pCO2 36.0 L VBG HCO3 21.3 VBG Total CO2 22.4 VBG O2 Sat (Calc) 80.6 H VBG Base Excess -3.3 L VBG Potassium 3.1 L Sodium 143.0 Chloride 109.0 H Glucose 104 Lactate 1.6 FiO2 21.0 Potassium Carbon Dioxide Anion Gap BUN Creatinine Est GFR ( Amer) Est GFR (Non-Af Amer) Random Glucose Calcium Magnesium Total Bilirubin AST ALT Alkaline Phosphatase Total Protein Albumin Globulin Albumin/Globulin Ratio Lipase Venous Blood Potassium 3.1 L Urine Color Yellow Urine Appearance Clear Urine pH 6.0 Ur Specific [place] 1.025 Urine Protein 100 H Urine Glucose (UA) Negative Urine Ketones 40 H Urine Blood Trace-intact H Urine Nitrate Negative Urine Bilirubin Small H Urine Urobilinogen 0.2 Ur Leukocyte Esterase Negative Urine RBC 0 - 2 Urine WBC 1 - 3 Ur Epithelial Cells Many H Urine Bacteria Occ Assessment & Plan - Assessment and Plan (Free Text) Assessment: 28 y/o female with PMH of asthma, endometrial fibroid, endometriosis, gastritis presents to the ED with diffuse lower abdominal pain x4 days Plan: Abdominal pain/nausea/vomiting: -CT A/P w/IV contrast: Mild nonspecific mesenteric fat stranding noted in the mid abdomen adjacent to anterior abdominal wall compatible with mesenteric panniculitis. -started IV abx rocephin, flagyl -continue IVF LR -pain control -continue zofran for nausea -surgery consulted. Dr Andrew Hypokalemia: -potassium repleted -CMP in am h/o asthma: -duoneb q4h -O2 NC prn Prophylaxis: -GI: protonix -DVT: SCD clear liquid diet Case reviewed and plan discussed with Dr Zenaida Agarwal, DO
[2018-05-28] MEDS ORDERED: Magnesium Hydroxide Susp 30 ml UD PO ONE (07:49)
[2018-05-28] MEDS ORDERED: Influenza Vaccine 60 mcg/0.5 mL SYR (4YR UP) IM ONE (08:07)
[2018-05-28] MEDS: Lactated Ringer's 1,000 ML IV SCH ×2 (08:28→18:32)
[2018-05-28] MEDS: cefTRIAXone 1 gm 1 GM/100 ML BAG IVPB SCH (09:05)
--- NOTE | 2018-05-28 10:01 | CP.PCM.CON ---
History of Present Illness - History of Present Illness History of Present Illness: Surgery Consult note- Dr. Andrew Reason for Consult: abdominal pain 28F pmhx significant for endometriosis s/p laparosopic surgery at [facility] w/ Dr. Dixon, asthma, gastritis presents to [facility] ED with diffuse lower abdominal pain x4 days. Similar pain in the past, usually associated w/ mesntral cycle, as it currently is now. Pain is 4-10/10, pressure-like, associated nausea and multiple episodes of non-bloody, non-bilious vomiting. Patient states she did not have a bowel movement in 1 week. However is passing flatus. bowel movement, did not tolerate oral intake since her symptoms started. She has endometriosis that is currently treated by her OBG. LMP was last week. She denies vaginal bleeding/discharge, hematochezia, melena, fever, chills, SOB, palpitation, chest pain. 12 points ROS reviewed with pertinent positive above PMH: asthma, endometrial fibroid, endometriosis, gastritis PSH: none ALL: metoclopramide SocialHx: Denies tobacco, etoh, recreational drug use FH: non contributory Review of Systems - Review of Systems All systems: reviewed and no additional remarkable complaints except - Constitutional Constitutional: As Per HPI Past Patient History - Infectious Disease Hx of Infectious Diseases: None - Past Social History Smoking Status: Never Smoked - CARDIAC Hx Cardiac Disorders: No - PULMONARY Hx Asthma: Yes - NEUROLOGICAL Hx Neurological Disorder: No - HEENT Hx HEENT Problems: No - RENAL Hx Chronic Kidney Disease: No Hx Kidney Stones: No - ENDOCRINE/METABOLIC Hx Endocrine Disorders: No - HEMATOLOGICAL/ONCOLOGICAL Hx Blood Disorders: No - INTEGUMENTARY Hx Dermatological Problems: No - MUSCULOSKELETAL/RHEUMATOLOGICAL Hx Falls: No - GASTROINTESTINAL Hx Gastrointestinal Disorders: Yes Hx Gastritis: Yes - GENITOURINARY/GYNECOLOGICAL Hx Genitourinary Disorders: No - PSYCHIATRIC Hx Psychophysiologic Disorder: No Hx Substance Use: Yes - SURGICAL HISTORY Hx Surgeries: No - ANESTHESIA Hx Anesthesia: No Hx Anesthesia Reactions: No Hx Malignant Hyperthermia: No Meds Allergies/Adverse Reactions: Allergies Allergy/AdvReac Type Severity Reaction Status Date / Time metoclopramide [From Reglan] AdvReac ANAPHYLAXIS Verified 05/28/18 01:29 - Medications Medications: Current Medications Albuterol Sulfate (Albuterol 0.083% Inhal Mariela (2.5 Mg/3 Ml) Ud) 2.5 mg IH [id number] PRN PRN Reason: Wheezing Metronidazole (Flagyl) 500 mg in 100 mls @ 100 mls/hr IVPB Q8 [facility]; Protocol Last Admin: 05/28/18 06:47 Dose: 100 mls/hr Ceftriaxone Sodium (Rocephin 1 Gram Ivpb) 1 gm in 100 mls @ 100 mls/hr IVPB DAILY [facility]; Protocol Last Admin: 05/28/18 09:05 Dose: 100 mls/hr Lactated Ringer's (Lactated Ringer's) 1,000 mls @ 150 mls/hr IV .Q6H40M [facility] Last Admin: 05/28/18 08:28 Dose: 150 mls/hr Morphine Sulfate (Morphine) 2 mg IVP Q4H PRN PRN Reason: Pain, severe (8-10) Last Admin: 05/28/18 06:47 Dose: 2 mg Ondansetron HCl (Zofran Inj) 4 mg IVP Q4H PRN PRN Reason: Nausea/Vomiting Pantoprazole Sodium (Protonix Inj) 40 mg IVP DAILY [facility] Last Admin: 05/28/18 09:05 Dose: 40 mg Physical Exam - Constitutional Appears: Non-toxic, No Acute Distress - Head Exam Head Exam: ATRAUMATIC - Eye Exam Eye Exam: EOMI. absent: Scleral icterus - ENT Exam ENT Exam: Mucous Membranes Moist - Respiratory Exam Respiratory Exam: NORMAL BREATHING PATTERN. absent: Accessory Muscle Use, Respiratory Distress - Cardiovascular Exam Cardiovascular Exam: REGULAR RHYTHM. absent: Bradycardia, Tachycardia - GI/Abdominal Exam GI & Abdominal Exam: Soft, Tenderness (particualry lower abdomen). absent: Distended, Guarding, Hernia - Extremities Exam Extremities exam: Negative for: calf tenderness - Neurological Exam Neurological exam: Alert, Oriented x3 - Skin Skin Exam: Intact, Warm Results - Vital Signs Recent Vital Signs: Last Vital Signs Temp 98.3 F 05/28/18 06:40 Pulse 80 05/28/18 06:40 Resp 16 05/28/18 07:58 BP 142/89 05/28/18 06:40 Pulse Ox 98 05/28/18 06:40 - Labs Result Diagrams: 05/28/18 02:10 05/28/18 02:10 Labs: Laboratory Results - last 24 hr 05/28/18 05/28/1819 02:10 02:10 02:10 WBC 8.0 RBC 4.22 Hgb 12.7 Hct 38.4 MCV 91.0 MCH 30.1 MCHC 33.1 RDW 13.3 Plt Count 270 MPV 10.9 Gran % 69.7 H Lymph % (Auto) 20.9 L [place] % (Auto) 9.0 H Eos % (Auto) 0.1 L Baso % (Auto) 0.3 Gran # 5.55 Lymph # (Auto) 1.7 [place] # (Auto) 0.7 H Eos # (Auto) 0.0 Baso # (Auto) 0.02 PT 13.6 H INR 1.19 APTT 26.0 pO2 VBG pH VBG pCO2 VBG HCO3 VBG Total CO2 VBG O2 Sat (Calc) VBG Base Excess VBG Potassium Sodium 145 Chloride 111 H Glucose Lactate FiO2 Potassium 3.2 L Carbon Dioxide 21 Anion Gap 16 BUN 13 Creatinine 1.0 Est GFR ( Amer) > 60 Est GFR (Non-Af Amer) > 60 Random Glucose 102 Calcium 9.7 Magnesium 2.3 H Total Bilirubin 0.8 AST 28 ALT 21 Alkaline Phosphatase 66 Total Protein 8.1 Albumin 4.7 Globulin 3.5 Albumin/Globulin Ratio 1.3 Lipase 133 Venous Blood Potassium Urine Color Urine Appearance Urine pH Ur Specific [place] Urine Protein Urine Glucose (UA) Urine Ketones Urine Blood Urine Nitrate Urine Bilirubin Urine Urobilinogen Ur Leukocyte Esterase Urine RBC Urine WBC Ur Epithelial Cells Urine Bacteria 05/28/18 05/28/18 02:10 02:10 WBC RBC Hgb Hct MCV MCH MCHC RDW Plt Count MPV Gran % Lymph % (Auto) [place] % (Auto) Eos % (Auto) Baso % (Auto) Gran # Lymph # (Auto) [place] # (Auto) Eos # (Auto) Baso # (Auto) PT INR APTT pO2 38 VBG pH 7.38 VBG pCO2 36.0 L VBG HCO3 21.3 VBG Total CO2 22.4 VBG O2 Sat (Calc) 80.6 H VBG Base Excess -3.3 L VBG Potassium 3.1 L Sodium 143.0 Chloride 109.0 H Glucose 104 Lactate 1.6 FiO2 21.0 Potassium Carbon Dioxide Anion Gap BUN Creatinine Est GFR ( Amer) Est GFR (Non-Af Amer) Random Glucose Calcium Magnesium Total Bilirubin AST ALT Alkaline Phosphatase Total Protein Albumin Globulin Albumin/Globulin Ratio Lipase Venous Blood Potassium 3.1 L Urine Color Yellow Urine Appearance Clear Urine pH 6.0 Ur Specific [place] 1.025 Urine Protein 100 H Urine Glucose (UA) Negative Urine Ketones 40 H Urine Blood Trace-intact H Urine Nitrate Negative Urine Bilirubin Small H Urine Urobilinogen 0.2 Ur Leukocyte Esterase Negative Urine RBC 0 - 2 Urine WBC 1 - 3 Ur Epithelial Cells Many H Urine Bacteria Occ Assessment & Plan - Assessment and Plan (Free Text) Assessment: 28F pmhx endometriosis s/p laparoscopic endometriectomy now w/ abdominal pain similar to menstral cycle pain Plan: - pain 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 [facility] - diet as tolerated - no acute surgical intervention indicated at this time - recommend follow up w/ [facility] - re-consult as needed - further recs [facility] Dr[facility]
--- NOTE | 2018-05-28 11:54 | CT ---
Date of service: 05/28/2018 PROCEDURE: CT Abdomen and Pelvis with contrast HISTORY: abd pain COMPARISON: 05/26/2018 TECHNIQUE: Contrast dose: 100 mL Omnipaque 350 Radiation dose: Total exam DLP = 632.98 mGy-cm. This CT exam was performed using one or more of the following dose reduction techniques: Automated exposure control, adjustment of the mA and/or kV according to patient size, and/or use of iterative reconstruction technique. FINDINGS: LOWER THORAX: Unremarkable. LIVER: Unremarkable. No gross lesion or ductal dilatation. GALLBLADDER AND BILE DUCTS: Unremarkable. PANCREAS: Unremarkable. No gross lesion or ductal dilatation. SPLEEN: Unremarkable. ADRENALS: Unremarkable. No mass. KIDNEYS AND URETERS: Low-density left lower pole 1.6 cm mass, measuring 43 Hounsfield units this is abnormally high for simple cortical cyst. Correlate with abdominal ultrasound of 10/18/2016, a complex cyst with internal septation was seen at that time measuring 1.4 cm in diameter. Recommend re-evaluation with renal ultrasound examination at this time. VASCULATURE: Unremarkable. No aortic aneurysm. No aortic atherosclerotic calcification or mural plaque present. BOWEL: Unremarkable. No obstruction. No gross mural thickening. APPENDIX: Normal appendix. PERITONEUM: No evidence of ascites or pneumoperitoneum. Once again, there is some nonspecific stranding of the greater omental fat unchanged in appearance compared to 05/26/2018. Uncertain significance. LYMPH NODES: Unremarkable. No enlarged lymph nodes. BLADDER: Suboptimally distended. Grossly normal. REPRODUCTIVE: 3 cm right ovarian cyst, likely physiologic. Normal uterus BONES: No acute fracture. OTHER FINDINGS: 1.1 cm nodule in the inferior left breast. Recommend correlation with targeted breast ultrasound examination on a nonemergent basis.. IMPRESSION: High attenuation 1.6 cm low-density left lower pole renal mass. Recommend evaluation with renal ultrasound examination this likely corresponds to a previously identified complex cyst measuring 1.4 cm on abdominal ultrasound of 10/18/2016. 3 cm right ovarian cyst, likely physiologic. 1.1 cm nodule inferior left breast. Recommend nonemergent targeted ultrasound exam at [facility] of the left breast. The preliminary findings for this examination were reported by [facility] at 4:16 a.m. on 05/28/2018. There is discordance of this report with the preliminary findings. Nonspecific stranding of the greater omental fat is unchanged compared to 05/26/2018. This is not a typical appearance for mesenteric panniculitis.
--- NOTE | 2018-05-28 14:03 | CP.PCM.CON ---
History of Present Illness - History of Present Illness History of Present Illness: 28 year old female with PMH of asthma, endometriosis S/P surgery, uterine fibroids, gastritis came in to [facility] [place] complaining of lower abdominal pain for the past 4-5 days, associated with nausea but without persistent vomiting. She denies eating anything out of the ordinary, no recent travel outside of [place] in the past month, no fever or chills, no diarrhea, no dysuria, on headache or dizziness, no chest pain, no SOB, no cough or colds, no sore throat, no dysphagia. Infectious diseases consult is requested to further evaluate and manage. Review of Systems - Review of Systems All systems: reviewed and no additional remarkable complaints except (as per HPI) Past Patient History - Infectious Disease Hx of Infectious Diseases: None - Past Social History Smoking Status: Never Smoked - CARDIAC Hx Cardiac Disorders: No - PULMONARY Hx Asthma: Yes - NEUROLOGICAL Hx Neurological Disorder: No - HEENT Hx HEENT Problems: No - RENAL Hx Chronic Kidney Disease: No Hx Kidney Stones: No - ENDOCRINE/METABOLIC Hx Endocrine Disorders: No - HEMATOLOGICAL/ONCOLOGICAL Hx Blood Disorders: No - INTEGUMENTARY Hx Dermatological Problems: No - MUSCULOSKELETAL/RHEUMATOLOGICAL Hx Falls: No - GASTROINTESTINAL Hx Gastrointestinal Disorders: Yes Hx Gastritis: Yes - GENITOURINARY/GYNECOLOGICAL Hx Genitourinary Disorders: No - PSYCHIATRIC Hx Psychophysiologic Disorder: No Hx Substance Use: Yes - SURGICAL HISTORY Hx Surgeries: No - ANESTHESIA Hx Anesthesia: No Hx Anesthesia Reactions: No Hx Malignant Hyperthermia: No Meds Allergies/Adverse Reactions: Allergies Allergy/AdvReac Type Severity Reaction Status Date / Time metoclopramide [From Reglan] AdvReac ANAPHYLAXIS Verified 05/28/18 01:29 - Medications Medications: Current Medications Albuterol Sulfate (Albuterol 0.083% Inhal Mariela (2.5 Mg/3 Ml) Ud) 2.5 mg IH [id number] PRN PRN Reason: Wheezing Metronidazole (Flagyl) 500 mg in 100 mls @ 100 mls/hr IVPB Q8 [facility]; Protocol Last Admin: 05/28/18 13:11 Dose: 100 mls/hr Ceftriaxone Sodium (Rocephin 1 Gram Ivpb) 1 gm in 100 mls @ 100 mls/hr IVPB DAILY [facility]; Protocol Last Admin: 05/28/18 09:05 Dose: 100 mls/hr Lactated Ringer's (Lactated Ringer's) 1,000 mls @ 150 mls/hr IV .Q6H40M [facility] Last Admin: 05/28/18 08:28 Dose: 150 mls/hr Morphine Sulfate (Morphine) 2 mg IVP Q4H PRN PRN Reason: Pain, severe (8-10) Last Admin: 05/28/18 10:38 Dose: 2 mg Ondansetron HCl (Zofran Inj) 4 mg IVP Q4H PRN PRN Reason: Nausea/Vomiting Last Admin: 05/28/18 10:38 Dose: 4 mg Pantoprazole Sodium (Protonix Inj) 40 mg IVP DAILY [facility] Last Admin: 05/28/18 09:05 Dose: 40 mg Physical Exam - Constitutional Appears: Chronically Ill - Head Exam Head Exam: NORMAL INSPECTION - Neck Exam Neck exam: Negative for: Meningismus - Respiratory Exam Respiratory Exam: Decreased Breath Sounds - Cardiovascular Exam Cardiovascular Exam: +S1, +S2 - GI/Abdominal Exam GI & Abdominal Exam: Soft. absent: Tenderness Results - Vital Signs Recent Vital Signs: Last Vital Signs Temp 98.3 F 05/28/18 06:40 Pulse 80 05/28/18 06:40 Resp 16 05/28/18 07:58 BP 142/89 05/28/18 06:40 Pulse Ox 98 05/28/18 06:40 - Labs Result Diagrams: 05/28/18 02:10 05/28/18 02:10 Labs: Laboratory Results - last 24 hr 05/28/18 05/28/18 05/28/18 02:10 02:10 02:10 WBC 8.0 RBC 4.22 Hgb 12.7 Hct 38.4 MCV 91.0 MCH 30.1 MCHC 33.1 RDW 13.3 Plt Count 270 MPV 10.9 Gran % 69.7 H Lymph % (Auto) 20.9 L [place] % (Auto) 9.0 H Eos % (Auto) 0.1 L Baso % (Auto) 0.3 Gran # 5.55 Lymph # (Auto) 1.7 Scott # (Auto) 0.7 H Eos # (Auto) 0.0 Baso # (Auto) 0.02 PT 13.6 H INR 1.19 APTT 26.0 pO2 VBG pH VBG pCO2 VBG HCO3 VBG Total CO2 VBG O2 Sat (Calc) VBG Base Excess VBG Potassium Sodium 145 Chloride 111 H Glucose Lactate FiO2 Potassium 3.2 L Carbon Dioxide 21 Anion Gap 16 BUN 13 Creatinine 1.0 Est GFR ( Amer) > 60 Est GFR (Non-Af Amer) > 60 Random Glucose 102 Calcium 9.7 Magnesium 2.3 H Total Bilirubin 0.8 AST 28 ALT 21 Alkaline Phosphatase 66 C-React Prot High Sens Total Protein 8.1 Albumin 4.7 Globulin 3.5 Albumin/Globulin Ratio 1.3 Lipase 133 Venous Blood Potassium Urine Color Urine Appearance Urine pH Ur Specific [place] Urine Protein Urine Glucose (UA) Urine Ketones Urine Blood Urine Nitrate Urine Bilirubin Urine Urobilinogen Ur Leukocyte Esterase Urine RBC Urine WBC Ur Epithelial Cells Urine Bacteria 05/28/18 05/28/18 05/28/18 02:10 02:10 09:06 WBC RBC Hgb Hct MCV MCH MCHC RDW Plt Count MPV Gran % Lymph % (Auto) Scott % (Auto) Eos % (Auto) Baso % (Auto) Gran # Lymph # (Auto) Scott # (Auto) Eos # (Auto) Baso # (Auto) PT INR APTT pO2 38 VBG pH 7.38 VBG pCO2 36.0 L VBG HCO3 21.3 VBG Total CO2 22.4 VBG O2 Sat (Calc) 80.6 H VBG Base Excess -3.3 L VBG Potassium 3.1 L Sodium 143.0 Chloride 109.0 H Glucose 104 Lactate 1.6 FiO2 21.0 Potassium Carbon Dioxide Anion Gap BUN Creatinine Est GFR ( Amer) Est GFR (Non-Af Amer) Random Glucose Calcium Magnesium Total Bilirubin AST ALT Alkaline Phosphatase C-React Prot High Sens 0.44 L Total Protein Albumin Globulin Albumin/Globulin Ratio Lipase Venous Blood Potassium 3.1 L Urine Color Yellow Urine Appearance Clear Urine pH 6.0 Ur Specific [place] 1.025 Urine Protein 100 H Urine Glucose (UA) Negative Urine Ketones 40 H Urine Blood Trace-intact H Urine Nitrate Negative Urine Bilirubin Small H Urine Urobilinogen 0.2 Ur Leukocyte Esterase Negative Urine RBC 0 - 2 Urine WBC 1 - 3 Ur Epithelial Cells Many H Urine Bacteria Occ Assessment & Plan - Assessment and Plan (Free Text) Plan: Assessment Abdominal pain probably related to endometriosis, R/O mesenteric panniculitis, R/O intra-abdominal infection asthma endometriosis S/P surgery uterine fibroids gastritis Plan started Rocephin and Flagyl pending blood cx; follow up CT A/P follow up OB-Liquor Tester evaluation will monitor clinically will get HIV test due to her age
--- NOTE | 2018-05-28 14:15 | US ---
Date of service: 05/28/2018 HISTORY: hx endometriosis w. abd pain COMPARISON: None available. TECHNIQUE: Transabdominal and transvaginal FINDINGS: UTERUS: Measures 6.9 x 4.8 x 4.0 cm. Anteverted . Anterior intramural uterine fibroid, 1.0 x 1.4 x 1.5 cm. ENDOMETRIUM: Measures 5 mm in diameter. Unremarkable. CERVIX: Multiple cervical nabothian cysts are incidentally noted. RIGHT OVARY: Measures 3.4 x 3.1 x 3.2 cm. Cm. No solid mass. Normal flow. Probable corpus luteum cyst, 3.0 x 2.7 x 2.8 cm characteristic peripheral hypervascularity is noted. LEFT OVARY: Measures 2.7 x 1.5 x 1.4 cm. No solid mass. Normal flow. Simple cyst, 1.0 x 1.7 x 2.0 cm. Likely physiologic. FREE FLUID: No significant free fluid noted. OTHER FINDINGS: None. IMPRESSION: 1.5 cm anterior intramural uterine fibroid. Probable 3 cm right ovarian corpus luteum.
--- NOTE | 2018-05-28 17:36 | CP.PCM.CON ---
History of Present Illness - History of Present Illness History of Present Illness: Called to see patient who had been admitted for evaluation of nausea and vomiting. Patient had reported a history of endometriosis and a CT Scan and a pelvic ultrasound requested a small fibroid nodule and a 3cm ovarian cyst with unremarkable pelvic findings. I talked to the dr requesting this consultation and the patient on telephone. Patient reports that she is with a history of longstanding endometriosis and for which she is being monitored by Dr Marshall. She had had confirmation and excision of some endometriotic lesions with laparoscopy. Patient reports that she has been scheduled to see her Family And Consumer Education Teacher on Tuesday ( 05/30/2018 ) for treatment with GNRH agonists for endometriosis. She currently reports that she has had a significant improvement since admission and is looking forward to seeing her environmental field team member. The Pelvic ultrasound and pelvic CT findings were also discussed with the patient and questions from mago ent were answered. The pelvic was unremarkable at this point and the patient was urged to follow up with her environmental field team member. Past Patient History - Infectious Disease Hx of Infectious Diseases: None - Past Social History Smoking Status: Never Smoked - CARDIAC Hx Cardiac Disorders: No - PULMONARY Hx Asthma: Yes - NEUROLOGICAL Hx Neurological Disorder: No - HEENT Hx HEENT Problems: No - RENAL Hx Chronic Kidney Disease: No Hx Kidney Stones: No - ENDOCRINE/METABOLIC Hx Endocrine Disorders: No - HEMATOLOGICAL/ONCOLOGICAL Hx Blood Disorders: No - INTEGUMENTARY Hx Dermatological Problems: No - MUSCULOSKELETAL/RHEUMATOLOGICAL Hx Falls: No - GASTROINTESTINAL Hx Gastrointestinal Disorders: Yes Hx Gastritis: Yes - GENITOURINARY/GYNECOLOGICAL Hx Genitourinary Disorders: No - PSYCHIATRIC Hx Psychophysiologic Disorder: No Hx Substance Use: Yes - SURGICAL HISTORY Hx Surgeries: No - ANESTHESIA Hx Anesthesia: No Hx Anesthesia Reactions: No Hx Malignant Hyperthermia: No Meds Allergies/Adverse Reactions: Allergies Allergy/AdvReac Type Severity Reaction Status Date / Time metoclopramide [From Reglan] AdvReac ANAPHYLAXIS Verified 05/28/18 01:29 - Medications Medications: Current Medications Albuterol Sulfate (Albuterol 0.083% Inhal Mariela (2.5 Mg/3 Ml) Ud) 2.5 mg IH [id number] PRN PRN Reason: Wheezing Metronidazole (Flagyl) 500 mg in 100 mls @ 100 mls/hr IVPB Q8 [facility]; Protocol Last Admin: 05/28/18 13:11 Dose: 100 mls/hr Ceftriaxone Sodium (Rocephin 1 Gram Ivpb) 1 gm in 100 mls @ 100 mls/hr IVPB DAILY [facility]; Protocol Last Admin: 05/28/18 09:05 Dose: 100 mls/hr Lactated Ringer's (Lactated Ringer's) 1,000 mls @ 150 mls/hr IV .Q6H40M [facility] Last Admin: 05/28/18 08:28 Dose: 150 mls/hr Ondansetron HCl (Zofran Inj) 4 mg IVP Q4H PRN PRN Reason: Nausea/Vomiting Last Admin: 05/28/18 14:38 Dose: 4 mg Pantoprazole Sodium (Protonix Inj) 40 mg IVP DAILY [facility] Last Admin: 05/28/18 09:05 Dose: 40 mg Results - Vital Signs Recent Vital Signs: Last Vital Signs Temp 97.9 F 05/28/18 14:00 Pulse 50 L 05/28/18 14:00 Resp 16 05/28/18 14:00 BP 134/85 05/28/18 14:00 Pulse Ox 99 05/28/18 14:00 - Labs Result Diagrams: 05/28/18 02:10 05/28/18 02:10 Labs: Laboratory Results - last 24 hr 05/28/18 05/28/18 05/28/18 02:10 02:10 02:10 WBC 8.0 RBC 4.22 Hgb 12.7 Hct 38.4 MCV 91.0 MCH 30.1 MCHC 33.1 RDW 13.3 Plt Count 270 MPV 10.9 Gran % 69.7 H Lymph % (Auto) 20.9 L [place] % (Auto) 9.0 H Eos % (Auto) 0.1 L Baso % (Auto) 0.3 Gran # 5.55 Lymph # (Auto) 1.7 [place] # (Auto) 0.7 H Eos # (Auto) 0.0 Baso # (Auto) 0.02 PT 13.6 H INR 1.19 APTT 26.0 pO2 VBG pH VBG pCO2 VBG HCO3 VBG Total CO2 VBG O2 Sat (Calc) VBG Base Excess VBG Potassium Sodium 145 Chloride 111 H Glucose Lactate FiO2 Potassium 3.2 L Carbon Dioxide 21 Anion Gap 16 BUN 13 Creatinine 1.0 Est GFR ( Amer) > 60 Est GFR (Non-Af Amer) > 60 Random Glucose 102 Calcium 9.7 Magnesium 2.3 H Total Bilirubin 0.8 AST 28 ALT 21 Alkaline Phosphatase 66 C-React Prot High Sens Total Protein 8.1 Albumin 4.7 Globulin 3.5 Albumin/Globulin Ratio 1.3 Lipase 133 Venous Blood Potassium Urine Color Urine Appearance Urine pH Ur Specific [place] Urine Protein Urine Glucose (UA) Urine Ketones Urine Blood Urine Nitrate Urine Bilirubin Urine Urobilinogen Ur Leukocyte Esterase Urine RBC Urine WBC Ur Epithelial Cells Urine Bacteria 05/28/18 05/28/18 05/28/18 02:10 02:10 09:06 WBC RBC Hgb Hct MCV MCH MCHC RDW Plt Count MPV Gran % Lymph % (Auto) [place] % (Auto) Eos % (Auto) Baso % (Auto) Gran # Lymph # (Auto) [place] # (Auto) Eos # (Auto) Baso # (Auto) PT INR APTT pO2 38 VBG pH 7.38 VBG pCO2 36.0 L VBG HCO3 21.3 VBG Total CO2 22.4 VBG O2 Sat (Calc) 80.6 H VBG Base Excess -3.3 L VBG Potassium 3.1 L Sodium 143.0 Chloride 109.0 H Glucose 104 Lactate 1.6 FiO2 21.0 Potassium Carbon Dioxide Anion Gap BUN Creatinine Est GFR ( Amer) Est GFR (Non-Af Amer) Random Glucose Calcium Magnesium Total Bilirubin AST ALT Alkaline Phosphatase C-React Prot High Sens 0.44 L Total Protein Albumin Globulin Albumin/Globulin Ratio Lipase Venous Blood Potassium 3.1 L Urine Color Yellow Urine Appearance Clear Urine pH 6.0 Ur Specific [place] 1.025 Urine Protein 100 H Urine Glucose (UA) Negative Urine Ketones 40 H Urine Blood Trace-intact H Urine Nitrate Negative Urine Bilirubin Small H Urine Urobilinogen 0.2 Ur Leukocyte Esterase Negative Urine RBC 0 - 2 Urine WBC 1 - 3 Ur Epithelial Cells Many H Urine Bacteria Occ Assessment & Plan (1) History of endometriosis Status: Acute (2) Abdominal pain Status: Acute - Assessment and Plan (Free Text) Plan: -As per imaging reports as well as on discussion with patient, pelvic imaging were unremarkable and therefore patient is cleared for discharge as far as Gynecology is concerned. - Patient to follow up with her primary gynecology for further management of endometriosis. - Gynecology can be re consulted as needed.
[2018-05-28] MEDS ORDERED: Morphine 2 mg/ml ISec IM STA ×2 (20:02→21:42)
[2018-05-29] MEDS ORDERED: Morphine 2 mg/ml ISec IM STA (03:13)
[2018-05-29] MEDS: Lactated Ringer's 1,000 ML IV SCH ×4 (04:51→18:04)
[2018-05-29] MEDS: metroNIDAZOLE IV 500 mg/100 ml 500 MG/100 ML BAG IVPB SCH ×3 (05:38→21:30)
[2018-05-29] MEDS ORDERED: Barium Sulfate Susp 2.1% w/v, 2.0% w/w 450 mL Bottle PO ONE (07:14)
[2018-05-29 07:56] LABS: BASO # 0.02 K/mm3 (0.0-2.0); BASO % 0.3 % (0.0-3.0); EOS % 0.6 % (1.5-5.0); GRAN # 3.41 (1.4-6.5); HEMOGLOBIN 11.7 g/dL (12.0-16.0); LYMPH # 2.2 (1.2-3.4); MEAN CELL VOLUME 90.7 fl (80.0-105.0); MEAN CORPUSCULAR HEMOGLOBIN 29.4 pg (25.0-35.0); MEAN CORPUSCULAR HGB CONC 32.4 g/dl (31.0-37.0); MEAN PLATELET VOLUME 10.8 fl (7.0-11.0); MONO # 0.8 (0.1-0.6); MONO % 12.1 % (1.0-6.0); RBC 3.98 10^6/uL (3.5-6.1); RED CELL DISTRIBUTION WIDTH 12.6 % (11.5-14.5); WHITE BLOOD COUNT 6.4 10^3/uL (4.5-11.0)
[2018-05-29 08:15] LABS: ALB/GLOB RATIO 1.3 (1.1-1.8); ALBUMIN 3.6 g/dL (3.0-4.8); ALT/SGPT 41 U/L (7-56); AST/SGOT 27 U/L (14-36); BLOOD UREA NITROGEN 9 mg/dL (7-21); CALCIUM 8.5 mg/dL (8.4-10.5); GFR NON-AFRICAN AMERICAN > 60
--- NOTE | 2018-05-29 08:53 | CP.PCM.PN ---
Subjective - Date & Time of Evaluation Date of Evaluation: 05/29/18 Time of Evaluation: 06:50 - Subjective Subjective: Surgery progress note, Dr. Andrew Patient seen and examined at bedside. Passed flatus and had BM last night. Abdominal pain managed improving. She denied N/V/D, fever Objective - Vital Signs/Intake and Output Vital Signs (last 24 hours): Temp Pulse Resp BP Pulse Ox 98.5 F 57 L 20 122/81 98 05/28/18 22:00 05/29/18 08:48 05/28/18 22:00 05/28/18 22:00 05/28/18 22:00 - Medications Medications: Current Medications Albuterol Sulfate (Albuterol 0.083% Inhal Mariela (2.5 Mg/3 Ml) Ud) 2.5 mg IH [id number] PRN PRN Reason: Wheezing Ceftriaxone Sodium (Rocephin 1 Gram Ivpb) 1 gm in 100 mls @ 100 mls/hr IVPB D AILY [facility]; Protocol Last Admin: 05/28/18 09:05 Dose: 100 mls/hr Lactated Ringer's (Lactated Ringer's) 1,000 mls @ 150 mls/hr IV .Q6H40M [facility] Last Admin: 05/29/18 05:38 Dose: 150 mls/hr Ondansetron HCl (Zofran Inj) 4 mg IVP Q4H PRN PRN Reason: Nausea/Vomiting Last Admin: 05/29/18 08:40 Dose: 4 mg Pantoprazole Sodium (Protonix Inj) 40 mg IVP DAILY [facility] Last Admin: 05/28/18 09:05 Dose: 40 mg - Labs Labs: 05/29/18 07:20 05/29/18 07:20 PT 13.6 SECONDS (9.4-12.5) H 05/28/18 02:10 INR 1.19 05/28/18 02:10 APTT 26.0 Seconds (25.1-36.5) 05/28/18 02:10 - Constitutional Appears: Well, No Acute Distress - Head Exam Head Exam: ATRAUMATIC, NORMAL INSPECTION, NORMOCEPHALIC - Eye Exam Eye Exam: EOMI, Normal appearance, PERRL Pupil Exam: NORMAL ACCOMODATION, PERRL - ENT Exam ENT Exam: Mucous Membranes Moist, Normal Exam - Neck Exam Neck Exam: Full ROM, Normal Inspection. absent: Lymphadenopathy - Respiratory Exam Respiratory Exam: Clear to Ausculation Bilateral, NORMAL BREATHING PATTERN. ab sent: Rales, Wheezes - Cardiovascular Exam Cardiovascular Exam: REGULAR RHYTHM, +S1, +S2. absent: Murmur - GI/Abdominal Exam GI & Abdominal Exam: Soft, Normal Bowel Sounds. absent: Guarding, Rigid, Tenderness, Mass, Organomegaly - Extremities Exam Extremities Exam: Full ROM, Normal Capillary Refill, Normal Inspection. absent: Joint Swelling, Pedal Edema - Neurological Exam Neurological Exam: Alert, Awake - Psychiatric Exam Psychiatric exam: Normal Affect, Normal Mood - Skin Skin Exam: Dry, Intact, Normal Color, Warm Assessment and Plan - Assessment and Plan (Free Text) Assessment: 28 y/o female with PMH of endometriosis s/p laparoscopic endometriectomy admitted with abdominal pain Plan: -likely SWITCHBOARD OPERATOR etiology s/p laparoscopic endometriotic lesions excision -diet advanced to clear liquid -A/P CT: unremarkable -as per SWITCHBOARD OPERATOR note: unremarkable pelvic imaging. f/u outpatient SWITCHBOARD OPERATOR for further management of endometriosis -no acute surgical intervention indicated at this time -further recs per surgical attending Dr. Kamran Agarwal DO
--- NOTE | 2018-05-29 09:49 | DS ---
HISTORY OF PRESENT ILLNESS: The patient is 28-year-old. States she has endometriosis. She had laparoscopic burning done for endometriosis and has by Dr. Dee. Since then, she has not been feeling well. She developed slowly abdominal pain that has been progressing. Complaining of feeling bloated. Complain of feeling nauseous. Pain got worse, but she came to emergency room for further evaluation. PAST MEDICAL HISTORY: She has past medical history significant for asthma, fibroid uterus, endometriosis. ALLERGIES: SHE IS ALLERGIC TO METOCLOPRAMIDE. SOCIAL HISTORY: She looks . Denies alcohol or drug use. PHYSICAL EXAMINATION: GENERAL: She is awake, alert, oriented, communicative. Complained of pain. Complained of feeling nauseous. VITAL SIGNS: She is afebrile. Pulse 50, respirations 16, blood pressure 134/85. LUNGS: Bilateral fair airflow. No rhonchi or crackle. HEART: S1, S2 audible. ABDOMEN: Diffusely tender with some guarding. NEUROLOGIC: She is awake, alert, oriented, communicative. LABORATORY EXAM: WBC is 8, hemoglobin 12, hematocrit 38, platelets 270. PT 13.6, INR 1.19. Chemistry, sodium 145, potassium 3.2, chloride 111, CO2 of 21, BUN 13, creatinine 1.0, blood sugar of 102. Urine shows epithelial cells, sonogram that shows 1.5 cm anterior intraluminal uterine fibroid. CT scan of the abdomen and pelvis has been ordered, awaiting the result. ASSESSMENT: 1. Diffuse abdominal pain. Etiology unclear. 2. Status post laparoscopic endometriosis, spondylosis. 3. History of fibroid uterus with hypokalemia. PLAN: We will discuss with Dr. Andrew. We will get a stat CT of the abdomen and pelvis with p.o. and IV contrast. Probably, the patient should be transferred to [facility] to Dr. Dee her initial [employer] surgeon. Roseanne Nunez MD
[2018-05-29] MEDS: Morphine 2 mg/ml ISec IVP PRN ×2 (10:30→18:03)
[2018-05-29] MEDS: cefTRIAXone 1 gm 1 GM/100 ML BAG IVPB SCH (10:30)
[2018-05-29] MEDS ORDERED: Iohexol 350 MG/100 ML VIAL ONE ×2 (10:33→15:58)
[2018-05-29] MEDS ORDERED: Iohexol 240 (50 ml) ONE (10:50)
--- NOTE | 2018-05-29 12:55 | CP.PCM.PN ---
Subjective - Date & Time of Evaluation Date of Evaluation: 05/29/18 Time of Evaluation: 09:25 - Subjective Subjective: No fevers, not in distress, still with abdominal pain. Objective - Vital Signs/Intake and Output Vital Signs (last 24 hours): Temp Pulse Resp BP Pulse Ox 98.3 F 80 16 142/89 98 05/28/18 06:40 05/28/18 06:40 05/28/18 07:58 05/28/18 06:40 05/28/18 06:40 - Medications Medications: Current Medications Albuterol Sulfate (Albuterol 0.083% Inhal Mariela (2.5 Mg/3 Ml) Ud) 2.5 mg IH [id number] PRN PRN Reason: Wheezing Metronidazole (Flagyl) 500 mg in 100 mls @ 100 mls/hr IVPB Q8 [facility]; Protocol Last Admin: 05/28/18 13:11 Dose: 100 mls/hr Ceftriaxone Sodium (Rocephin 1 Gram Ivpb) 1 gm in 100 mls @ 100 mls/hr IVPB DAILY [facility]; Protocol Last Admin: 05/28/18 09:05 Dose: 100 mls/hr Lactated Ringer's (Lactated Ringer's) 1,000 mls @ 150 mls/hr IV .Q6H40M [facility] Last Admin: 05/28/18 08:28 Dose: 150 mls/hr Morphine Sulfate (Morphine) 2 mg IVP Q4H PRN PRN Reason: Pain, severe (8-10) Last Admin: 05/28/18 10:38 Dose: 2 mg Ondansetron HCl (Zofran Inj) 4 mg IVP Q4H PRN PRN Reason: Nausea/Vomiting Last Admin: 05/28/18 10:38 Dose: 4 mg Pantoprazole Sodium (Protonix Inj) 40 mg IVP DAILY [facility] Last Admin: 05/28/18 09:05 Dose: 40 mg - Labs Labs: 05/28/18 02:10 05/28/18 02:10 PT 13.6 SECONDS (9.4-12.5) H 05/28/18 02:10 INR 1.19 05/28/18 02:10 APTT 26.0 Seconds (25.1-36.5) 05/28/18 02:10 - Constitutional Appears: No Acute Distress, Chronically Ill - Head Exam Head Exam: NORMAL INSPECTION - Respiratory Exam Respiratory Exam: Decreased Breath Sounds - Cardiovascular Exam Cardiovascular Exam: +S1, +S2 - GI/Abdominal Exam GI & Abdominal Exam: Soft. absent: Tenderness Assessment and Plan - Assessment and Plan (Free Text) Plan: Assessment Abdominal pain probably related to endometriosis and uterine fibroids, R/O mesenteric panniculitis, R/O intra-abdominal infection asthma endometriosis S/P surgery uterine fibroids gastritis Plan started Rocephin and Flagyl pending blood cx (Day 2); reviewed CT A/P as OB-Molder Closed Molds evaluation, patient needs follow up will continue monitor clinically follow up HIV test due to her age
--- NOTE | 2018-05-29 13:51 | US ---
Date of service: 05/29/2018 PROCEDURE: Ultrasound of the Kidneys HISTORY: renal mass COMPARISON: CT scan of the abdomen pelvis dated 05/28/2018. TECHNIQUE: Sonogram of the kidneys. FINDINGS: RIGHT KIDNEY: Measures: 10.0 x 3.7 x 5.3 cm. Normal in size, contour and echogenicity. No stone, solid mass lesion or hydronephrosis visualized. LEFT KIDNEY: Measures: 10.2 x 5.0 x 5.4 cm. Lower pole hypoechoic structure with septation measuring 1.0 x 0.8 x 1.5 cm, stable. Normal in size, contour and echogenicity. No stone or hydronephrosis visualized. OTHER FINDINGS: None. IMPRESSION: Stable appearance of left lower pole hypoechoic structure with septation measuring up to 1.5 cm.
--- NOTE | 2018-05-29 17:15 | CT ---
Date of service: 05/29/2018 PROCEDURE: CT Abdomen and Pelvis with contrast HISTORY: post-op abd pain COMPARISON: Comparison is made to the previous study dated 05/28/2018 100 mL of Omnipaque 350 intravenously. Axial and reformatted coronal and sagittal CT images of the abdomen and pelvis were obtained after IV and oral contrast administration. TECHNIQUE: Contrast dose: Radiation dose: Total exam DLP = 795.61 mGy-cm. This CT exam was performed using one or more of the following dose reduction techniques: Automated exposure control, adjustment of the mA and/or kV according to patient size, and/or use of iterative reconstruction technique. FINDINGS: LOWER THORAX: Small opacity noted at the right middle lobe may represent atelectasis or less likely pneumonia. Otherwise the lung bases are clear. There is 1.1 centimeter nodule at the left breast again noted. LIVER: Heterogeneous enhancement of the liver is again noted. No evidence of discrete mass. The portal vein is patent. GALLBLADDER AND BILE DUCTS: High attenuation material noted in the gallbladder likely represent concentrated contrast from prior study. The possibility of gallbladder sludge is not totally excluded. No evidence of acute cholecystitis. PANCREAS: Unremarkable. No gross lesion or ductal dilatation. SPLEEN: Unremarkable. ADRENALS: Unremarkable. No mass. KIDNEYS AND URETERS: Again noted is complex lesion at the lower pole of the left kidney measures 1.8 centimeter. No evidence of hydronephrosis or hydroureter. The kidneys enhance symmetrically. VASCULATURE: Unremarkable. No aortic aneurysm. No aortic atherosclerotic calcification or mural plaque present. BOWEL: Unremarkable. No obstruction. No gross mural thickening. APPENDIX: No evidence of appendicitis PERITONEUM: There is a small amount of free fluid in the pelvis adjacent to the uterus and bladder. Mild mesenteric stranding noted in the mid and lower abdomen. LYMPH NODES: Unremarkable. No enlarged lymph nodes. BLADDER: Unremarkable. REPRODUCTIVE: There is 4 x 3.5 centimeters cystic lesion at the right adnexa. There is 2.2 centimeter cystic lesion at the left adnexa. There is 3.1 x 2.2 centimeter lesion at the anterior uterine wall likely represent fibroid. BONES: No acute fracture. OTHER FINDINGS: None. IMPRESSION: Small amount of free fluid in the pelvis. 4 centimeter cystic lesion at the right adnexa. Nonspecific mild mesenteric fat stranding noted in the mid abdomen. Additional findings as discussed above.
[2018-05-29] MEDS: Albuterol 0.083% Inhal Sol (2.5 mg/3 mL) UD IH PRN (20:10)
[2018-05-30] MEDS: Morphine 2 mg/ml ISec IVP PRN ×4 (00:06→21:27)
[2018-05-30] MEDS: Albuterol 0.083% Inhal Sol (2.5 mg/3 mL) UD IH PRN ×2 (01:30→15:53)
[2018-05-30] MEDS: Lactated Ringer's 1,000 ML IV SCH (01:45)
--- NOTE | 2018-05-30 02:10 | CP.PCM.PN ---
<Fox Levi - Last Filed: 05/30/18 02:23> Subjective - Date & Time of Evaluation Date of Evaluation: 05/30/18 Time of Evaluation: 02:10 - Subjective Subjective: S: 28 y/o female with PMH of asthma, endometrial fibroid, endometriosis, gastritis presents to the ED with diffuse lower abdominal pain. Patient complains of some wheezing after getting her albuterol treatment. Patient states that she uses her Ventolin pump at home daily. She denies SOB, chest pain, abdominal pain, or any other complaints. O: HEENT: PERRLA Lungs: Expiratory wheezes heard b/l, not in respiratory distress, no abdominal breathing, no accessory muscles use Heart: RRR, S1, S2 Abdominal: Soft, ND A: Patient complains of wheezing despite getting albuterol treatment. Patient likely has asthma exacerbation. P: - Solumedrol 40mg IVP Q12 - Duonebs Q6 PRN for SOB - CXR in the morning - Will re-examine patient in 60-90 minutes after getting her dose of Solumedrol - Continue to monitor Objective - Vital Signs/Intake and Output Vital Signs (last 24 hours): Temp Pulse Resp BP Pulse Ox 100.6 F H 95 H 18 137/93 H 97 05/29/18 22:45 05/29/18 22:45 05/29/18 22:45 05/29/18 22:45 05/29/18 22:45 Intake and Output: 05/29/18 05/30/18 18:59 06:59 Intake Total 2480 Output Total 100 Balance 2380 - Medications Medications: Current Medications Albuterol Sulfate (Albuterol 0.083% Inhal Mariela (2.5 Mg/3 Ml) Ud) 2.5 mg IH [id number] PRN PRN Reason: Wheezing Last Admin: 05/30/18 01:30 Dose: 2.5 mg Lactated Ringer's (Lactated Ringer's) 1,000 mls @ 150 mls/hr IV .Q6H40M JOSE Last Admin: 05/30/18 01:45 Dose: 150 mls/hr Metronidazole (Flagyl) 500 mg in 100 mls @ 100 mls/hr IVPB Q8 JOSE; Protocol Last Admin: 05/29/18 21:30 Dose: 100 mls/hr Methylprednisolone (Solu-Medrol) 40 mg IVP Q12 JOSE Morphine Sulfate (Morphine) 2 mg IVP Q6H PRN PRN Reason: Pain, severe (8-10) Last Admin: 05/30/18 00:06 Dose: 2 mg Ondansetron HCl (Zofran Inj) 4 mg IVP Q4H PRN PRN Reason: Nausea/Vomiting Last Admin: 05/29/18 22:31 Dose: 4 mg Pantoprazole Sodium (Protonix Inj) 40 mg IVP DAILY [facility] Last Admin: 05/29/18 10:30 Dose: 40 mg - Labs Labs: 05/29/18 07:20 05/29/18 07:20 PT 13.6 SECONDS (9.4-12.5) H 05/28/18 02:10 INR 1.19 05/28/18 02:10 APTT 26.0 Seconds (25.1-36.5) 05/28/18 02:10 <Kristina Wynne - Last Filed: 05/30/18 03:30> Objective - Vital Signs/Intake and Output Vital Signs (last 24 hours): Temp Pulse Resp BP Pulse Ox 100.6 F H 95 H 18 137/93 H 97 05/29/18 22:45 05/29/18 22:45 05/29/18 22:45 05/29/18 22:45 05/29/18 22:45 Intake and Output: 05/29/18 05/30/18 18:59 06:59 Intake Total 2480 Output Total 100 Balance 2380 - Medications Medications: Current Medications Albuterol Sulfate (Albuterol 0.083% Inhal Mariela (2.5 Mg/3 Ml) Ud) 2.5 mg IH [id number] PRN PRN Reason: Wheezing Last Admin: 05/30/18 01:30 Dose: 2.5 mg Albuterol/Ipratropium (Duoneb 3 Mg/0.5 Mg (3 Ml) Ud) 3 ml IH Q6H PRN PRN Reason: Shortness of Breath Diphenhydramine HCl (Benadryl) 50 mg PO HS PRN PRN Reason: Insomnia Lactated Ringer's (Lactated Ringer's) 1,000 mls @ 150 mls/hr IV .Q6H40M [facility] Last Admin: 05/30/18 01:45 Dose: 150 mls/hr Metronidazole (Flagyl) 500 mg in 100 mls @ 100 mls/hr IVPB Q8 JOSE; Protocol Last Admin: 05/29/18 21:30 Dose: 100 mls/hr Methylprednisolone (Solu-Medrol) 40 mg IVP Q12 JOSE Methylprednisolone (Solu-Medrol) 40 mg IVP STAT STA Stop: 05/30/18 03:29 Morphine Sulfate (Morphine) 2 mg IVP Q6H PRN PRN Reason: Pain, severe (8-10) Last Admin: 05/30/18 00:06 Dose: 2 mg Ondansetron HCl (Zofran Inj) 4 mg IVP Q4H PRN PRN Reason: Nausea/Vomiting Last Admin: 05/29/18 22:31 Dose: 4 mg Pantoprazole Sodium (Protonix Inj) 40 mg IVP DAILY [facility] Last Admin: 05/29/18 10:30 Dose: 40 mg - Labs Labs: 05/29/18 07:20 05/29/18 07:20 PT 13.6 SECONDS (9.4-12.5) H 05/28/18 02:10 INR 1.19 05/28/18 02:10 APTT 26.0 Seconds (25.1-36.5) 05/28/18 02:10 Attending/Attestation - Attestation I have personally seen and examined this patient.: No I have fully participated in the care of the patient.: No I have reviewed all pertinent clinical information, including history, physical exam and plan: No
[2018-05-30] MEDS ORDERED: MethylPREDNISolone 40 mg Vial IVP STA (03:28)
[2018-05-30] MEDS: metroNIDAZOLE IV 500 mg/100 ml 500 MG/100 ML BAG IVPB SCH ×3 (05:02→21:28)
[2018-05-30] MEDS: Albuterol-Ipratrop 3 mg / 0.5 (3 ml) UD IH PRN ×3 (07:33→19:30)
--- NOTE | 2018-05-30 08:11 | PN ---
DATE: 05/29/2018 SUBJECTIVE: The patient is 28 years old, seen and examined, sitting in bed, seems to be comfortable, complain of . Did not have any vomiting since morning, was given order for clear liquid, if she can tolerate. PHYSICAL EXAMINATION VITAL SIGNS: She is afebrile, pulse 50, respirations 20, blood pressure 122/81. LUNGS: Bilateral fair airflow. No rhonchi or crackles. HEART: S1 and S2 audible. ABDOMEN: Soft. She has diffuse tenderness in all quadrants. LABORATORY DATA: WBC 6.4, hemoglobin 11.7, hematocrit 36, platelets 215. Chemistry: Sodium 138, potassium 3.3, chloride 108, CO2 of 21, BUN 9, creatinine 0.8, blood sugar of 73. IMAGING: Transvaginal sonogram done that shows fibroid uterus. CT of the abdomen and pelvis done yesterday that shows high attenuation 1.6 cm low density left lower pole renal mass, probable complex 3 cm right ovarian cyst. ASSESSMENT: 1. Abdominal pain status post endometriosis ablation by laparoscopy. 2. Fibroid uterus. 3. Renal cyst. CT shows ovarian cyst and left lower pole renal mass. PLAN: We will order for renal sonogram, start her on liquid diet. Continue IV fluid, IV antibiotics, analgesics as needed, start clear liquid and advance as tolerated. Roseanne Nunez MD
[2018-05-30 09:21] LABS: BASO # 0.02 K/mm3 (0.0-2.0); BASO % 0.5 % (0.0-3.0); GRAN # 3.53 (1.4-6.5); GRAN % 86.9 % (50.0-68.0); HEMOGLOBIN 13.1 g/dL (12.0-16.0); LYMPH # 0.4 (1.2-3.4); LYMPH % 9.9 % (22.0-35.0); MEAN CELL VOLUME 89.1 fl (80.0-105.0); MEAN CORPUSCULAR HEMOGLOBIN 29.8 pg (25.0-35.0); MEAN CORPUSCULAR HGB CONC 33.4 g/dl (31.0-37.0); MONO # 0.1 (0.1-0.6); MONO % 2.7 % (1.0-6.0); RBC 4.4 10^6/uL (3.5-6.1); RED CELL DISTRIBUTION WIDTH 12.4 % (11.5-14.5); WHITE BLOOD COUNT 4.1 10^3/uL (4.5-11.0)
[2018-05-30 09:38] LABS: ALB/GLOB RATIO 1.3 (1.1-1.8); ALBUMIN 4.1 g/dL (3.0-4.8); ALT/SGPT 99 U/L (7-56); AST/SGOT 66 U/L (14-36); BLOOD UREA NITROGEN 4 mg/dL (7-21); CALCIUM 8.8 mg/dL (8.4-10.5); GFR NON-AFRICAN AMERICAN > 60
--- NOTE | 2018-05-30 09:40 | CP.PCM.PN ---
Subjective - Date & Time of Evaluation Date of Evaluation: 05/30/18 Time of Evaluation: 09:37 - Subjective Subjective: Surgery progress note, Dr. Andrew Patient seen and examined at bedside. Last night, had fever with Tmax 100.7, nausea, respiratory wheezing. She complains of lower abdominal pain and nausea. Objective - Vital Signs/Intake and Output Vital Signs (last 24 hours): Temp Pulse Resp BP Pulse Ox 100.3 F H 90 20 113/70 96 05/30/18 06:00 05/30/18 06:00 05/30/18 06:00 05/30/18 06:00 05/30/18 06:00 - Medications Medications: Current Medications Albuterol Sulfate (Albuterol 0.083% Inhal Mariela (2.5 Mg/3 Ml) Ud) 2.5 mg IH [id number] PRN PRN Reason: Wheezing Last Admin: 05/30/18 01:30 Dose: 2.5 mg Albuterol/Ipratropium (Duoneb 3 Mg/0.5 Mg (3 Ml) Ud) 3 ml IH Q6H PRN PRN Reason: Shortness of Breath Last Admin: 05/30/18 07:33 Dose: 3 ml Diphenhydramine HCl (Benadryl) 50 mg PO HS PRN PRN Reason: Insomnia Last Admin: 05/30/18 03:44 Dose: 50 mg Lactated Ringer's (Lactated Ringer's) 1,000 mls @ 150 mls/hr IV .Q6H40M [facility] Last Admin: 05/30/18 01:45 Dose: 150 mls/hr Metronidazole (Flagyl) 500 mg in 100 mls @ 100 mls/hr IVPB Q8 JOSE; Protocol Last Admin: 05/30/18 05:02 Dose: 100 mls/hr Methylprednisolone (Solu-Medrol) 40 mg IVP Q12 [facility] Morphine Sulfate (Morphine) 2 mg IVP Q6H PRN PRN Reason: Pain, severe (8-10) Last Admin: 05/30/18 08:49 Dose: 2 mg Ondansetron HCl (Zofran Inj) 4 mg IVP Q4H PRN PRN Reason: Nausea/Vomiting Last Admin: 05/30/18 08:50 Dose: 4 mg Pantoprazole Sodium (Protonix Inj) 40 mg IVP DAILY [facility] Last Admin: 05/29/18 10:30 Dose: 40 mg - Labs Labs: 05/30/18 09:00 05/29/18 07:20 PT 13.6 SECONDS (9.4-12.5) H 05/28/18 02:10 INR 1.19 05/28/18 02:10 APTT 26.0 Seconds (25.1-36.5) 05/28/18 02:10 - Constitutional Appears: Well, Non-toxic - Head Exam Head Exam: ATRAUMATIC, NORMAL INSPECTION, NORMOCEPHALIC - Eye Exam Eye Exam: EOMI, Normal appearance, PERRL Pupil Exam: NORMAL ACCOMODATION, PERRL - ENT Exam ENT Exam: Mucous Membranes Dry - Neck Exam Neck Exam: Full ROM, Normal Inspection. absent: Lymphadenopathy - Respiratory Exam Respiratory Exam: Clear to Ausculation Bilateral, NORMAL BREATHING PATTERN - Cardiovascular Exam Cardiovascular Exam: REGULAR RHYTHM, +S1, +S2. absent: Gallop, Rubs, Murmur - GI/Abdominal Exam GI & Abdominal Exam: Tenderness (lower abdomen mildly tender to palpate), Diminished Bowel Sounds, Normal Bowel Sounds. absent: Hernia, Mass, Organomegaly - Extremities Exam Extremities Exam: Full ROM, Normal Capillary Refill, Normal Inspection. absent: Joint Swelling, Pedal Edema - Neurological Exam Neurological Exam: Alert, Awake, Oriented x3 - Psychiatric Exam Psychiatric exam: Normal Affect, Normal Mood - Skin Skin Exam: Dry, Intact, Normal Color, Warm Assessment and Plan - Assessment and Plan (Free Text) Assessment: 28 y/o female with PMH of endometriosis s/p laparoscopic endometriectomy admitted with abdominal pain Plan: -likely MANAGEMENT SPECIALIST etiology s/p laparoscopic endometriotic lesions excision -continue zofran , PPI, pain control -diet advanced to clear liquid -A/P CT: unremarkable -as per MANAGEMENT SPECIALIST note: unremarkable pelvic imaging. f/u outpatient MANAGEMENT SPECIALIST for further ma nagement of endometriosis -no acute surgical intervention indicated at this time -surgery signing off -further recs per surgical attending Dr. Kamran Agarwal, DO
[2018-05-30] MEDS ORDERED: Potassium Chloride 40 mEq/30 ml LIQ UD PO STA (09:52)
[2018-05-30] MEDS ORDERED: MethylPREDNISolone 40 mg Vial IVP SCH (10:00)
--- NOTE | 2018-05-30 10:29 | RAD ---
Date of service: 05/30/2018 HISTORY: asthma exac COMPARISON: 05/15/2018 FINDINGS: LUNGS: No active pulmonary disease. PLEURA: No significant pleural effusion identified, no pneumothorax apparent. CARDIOVASCULAR: No aortic atherosclerotic calcification present. Normal cardiac size. No pulmonary vascular congestion. OSSEOUS STRUCTURES: No significant abnormalities. VISUALIZED UPPER ABDOMEN: Normal. OTHER FINDINGS: None. IMPRESSION: No active disease.
--- NOTE | 2018-05-30 14:24 | CP.PCM.PN ---
Subjective - Date & Time of Evaluation Date of Evaluation: 05/30/18 Time of Evaluation: 10:35 - Subjective Subjective: Developed fevers overnight, not in distress, no sore throat but feels she is wheezing. No rhinorrhea, no body aches. Objective - Vital Signs/Intake and Output Vital Signs (last 24 hours): Temp Pulse Resp BP Pulse Ox 98.5 F 57 L 20 122/81 98 05/28/18 22:00 05/29/18 08:48 05/28/18 22:00 05/28/18 22:00 05/28/18 22:00 - Medications Medications: Current Medications Albuterol Sulfate (Albuterol 0.083% Inhal Mariela (2.5 Mg/3 Ml) Ud) 2.5 mg IH [id number] PRN PRN Reason: Wheezing Lactated Ringer's (Lactated Ringer's) 1,000 mls @ 150 mls/hr IV .Q6H40M [facility] Last Admin: 05/29/18 10:30 Dose: 150 mls/hr Metronidazole (Flagyl) 500 mg in 100 mls @ 100 mls/hr IVPB Q8 JOSE; Protocol Potassium Chloride (Potassium Chloride 10 Meq/100 Ml) 10 meq in 100 mls @ 50 mls/hr IVPB Q2H JOSE Stop: 05/29/18 14:29 Last Admin: 05/29/18 12:37 Dose: 50 mls/hr Morphine Sulfate (Morphine) 2 mg IVP Q6H PRN PRN Reason: Pain, severe (8-10) Last Admin: 05/29/18 10:30 Dose: 2 mg Ondansetron HCl (Zofran Inj) 4 mg IVP Q4H PRN PRN Reason: Nausea/Vomiting Last Admin: 05/29/18 08:40 Dose: 4 mg Pantoprazole Sodium (Protonix Inj) 40 mg IVP DAILY [facility] Last Admin: 05/29/18 10:30 Dose: 40 mg - Labs Labs: 05/29/18 07:20 05/29/18 07:20 PT 13.6 SECONDS (9.4-12.5) H 05/28/18 02:10 INR 1.19 05/28/18 02:10 APTT 26.0 Seconds (25.1-36.5) 05/28/18 02:10 - Constitutional Appears: No Acute Distress, Chronically Ill - Head Exam Head Exam: NORMAL INSPECTION - Respiratory Exam Respiratory Exam: Decreased Breath Sounds - Cardiovascular Exam Cardiovascular Exam: +S1, +S2 - GI/Abdominal Exam GI & Abdominal Exam: Soft. 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
--- NOTE | 2018-05-30 21:04 | PN ---
DATE: 05/30/2018 SUBJECTIVE: The patient is a 28-year-old, seen and examined, complaining of feeling nauseous at times, spiked fever last night 100.3. PHYSICAL EXAMINATION: VITAL SIGNS: This morning; temperature 99.5, pulse 62, respirations 20, and blood pressure 130/94. LUNGS: Bilateral fair airflow. No rhonchi or crackle. HEART: S1 and S2 audible. ABDOMEN: Soft, slight palpable discomfort suprapubic area. NEUROLOGIC: The patient is awake, alert, oriented, and communicative. LABORATORY DATA: Blood cultures are negative. ASSESSMENT: 1. Abdominal pain and fever, status post laparoscopic gynecological procedure. 2. Ovarian cyst. 3. History of asthma. PLAN: We will continue IV antibiotics. We will advance the diet. If she tolerate the food, we will make discharge plan in a.m. if she is afebrile for next 24 hours. Roseanne Nunez MD
[2018-05-30] MEDS: MethylPREDNISolone 40 mg Vial IVP SCH (21:27)
[2018-05-31] MEDS: Morphine 2 mg/ml ISec IVP PRN ×3 (02:50→23:06)
[2018-05-31] MEDS: metroNIDAZOLE IV 500 mg/100 ml 500 MG/100 ML BAG IVPB SCH ×3 (05:56→21:30)
[2018-05-31 07:16] LABS: GRAN # 1.36 (1.4-6.5); GRAN % 62.1 % (50.0-68.0); LYMPH # 0.5 (1.2-3.4); LYMPH % 20.5 % (22.0-35.0); MEAN CELL VOLUME 88.5 fl (80.0-105.0); MEAN CORPUSCULAR HEMOGLOBIN 29.3 pg (25.0-35.0); MEAN CORPUSCULAR HGB CONC 33.1 g/dl (31.0-37.0); MEAN PLATELET VOLUME 11.2 fl (7.0-11.0); MONO # 0.4 (0.1-0.6); MONO % 17.4 % (1.0-6.0); RBC 3.75 10^6/uL (3.5-6.1); RED CELL DISTRIBUTION WIDTH 12.7 % (11.5-14.5); WHITE BLOOD COUNT 2.2 10^3/uL (4.5-11.0)
[2018-05-31 07:28] LABS: ALB/GLOB RATIO 1.2 (1.1-1.8); ALBUMIN 3.2 g/dL (3.0-4.8); ALT/SGPT 77 U/L (7-56); AST/SGOT 34 U/L (14-36); BLOOD UREA NITROGEN 4 mg/dL (7-21); CALCIUM 8.5 mg/dL (8.4-10.5); GFR NON-AFRICAN AMERICAN > 60
[2018-05-31] MEDS: Albuterol-Ipratrop 3 mg / 0.5 (3 ml) UD IH PRN (07:49)
[2018-05-31 08:13] LABS: PH,URINE 6.5 (4.7-8.0); URINE APPEARANCE CLEAR (CLEAR); URINE BILIRUBIN NEGATIVE (NEGATIVE); URINE BLOOD NEGATIVE (NEGATIVE); URINE COLOR YELLOW (YELLOW); URINE GLUCOSE (UA) NEGATIVE (NEGATIVE); URINE LEUKOCYTE ESTERASE NEGATIVE Leu/uL (NEGATIVE); URINE PROTEIN NEGATIVE mg/dL (<30 mg/dL); URINE UROBILINOGEN 0.2 E.U./dL (<1 E.U./dL)
[2018-05-31] MEDS: MethylPREDNISolone 40 mg Vial IVP SCH ×2 (10:56→21:29)
[2018-05-31] MEDS: Lactated Ringer's 1,000 ML IV SCH (11:00)
[2018-05-31] MEDS ORDERED: Potassium Chloride 20 mEq ER Tab PO ONE (12:08)
[2018-05-31] MEDS: Albuterol 0.083% Inhal Sol (2.5 mg/3 mL) UD INH SCH ×2 (13:41→19:31)
--- NOTE | 2018-05-31 16:11 | PN ---
DATE: 05/31/2018 SUBJECTIVE: The patient has no complaints of any chest pain. She does have complaint of nausea. She said she had dry heaves. She also complains of abdominal discomfort and shortness of breath. PHYSICAL EXAMINATION: VITAL SIGNS: Temperature is 98.3, pulse is 70, and blood pressure 198/60 and respirations 18. GENERAL: The patient is lying in bed, flat, comfortable. HEENT: No oral lesion. Anicteric sclerae. Moist mucosa. NECK: No JVD, adenopathy, or thyromegaly. CARDIOVASCULAR: S1 and S2, regular. No murmurs, rubs, or gallops. LUNGS: Clear to auscultation bilaterally. No wheeze, rales, or rhonchi. ABDOMEN: Bowel sounds are positive, soft, nontender and nondistended. EXTREMITIES: no cyanosis, clubbing or edema. LABORATORY DATA: White count 12.2, hemoglobin , potassium was 3.4. ASSESSMENT: 1. Abdominal pain. 2. Nausea and vomiting. 3. Ovarian cyst. 4. Asthma. PLAN: The patient is on nebulizer treatment. The patient is on Flagyl for antibiotics, is on IV fluids. I will change the IV fluids with potassium normal saline. The patient is going to be on Solu-Medrol and this is going to be continued. She is on Zofran for nausea. She is on a regular diet, but she is not able to tolerate. Her blood pressure is elevated because of the nausea and vomiting that she was having and the pain. José Manuel Tabares MD
--- NOTE | 2018-05-31 16:54 | CP.PCM.PN ---
Subjective - Date & Time of Evaluation Date of Evaluation: 05/31/18 Time of Evaluation: 09:15 - Subjective Subjective: Comfortable, abdominal pain is a little better, had some low grade fever overnight, but breathing a little better. Objective - Vital Signs/Intake and Output Vital Signs (last 24 hours): Temp Pulse Resp BP Pulse Ox 100.3 F H 90 20 113/70 96 05/30/18 06:00 05/30/18 06:00 05/30/18 06:00 05/30/18 06:00 05/30/18 06:00 - Medications Medications: Current Medications Albuterol Sulfate (Albuterol 0.083% Inhal Mariela (2.5 Mg/3 Ml) Ud) 2.5 mg IH [id number] PRN PRN Reason: Wheezing Last Admin: 05/30/18 01:30 Dose: 2.5 mg Albuterol/Ipratropium (Duoneb 3 Mg/0.5 Mg (3 Ml) Ud) 3 ml IH Q6H PRN PRN Reason: Shortness of Breath Last Admin: 05/30/18 11:24 Dose: 3 ml Diphenhydramine HCl (Benadryl) 50 mg PO HS PRN PRN Reason: Insomnia Last Admin: 05/30/18 03:44 Dose: 50 mg Lactated Ringer's (Lactated Ringer's) 1,000 mls @ 150 mls/hr IV .Q6H40M JOSE Last Admin: 05/30/18 01:45 Dose: 150 mls/hr Metronidazole (Flagyl) 500 mg in 100 mls @ 100 mls/hr IVPB Q8 JOSE; Protocol Last Admin: 05/30/18 13:12 Dose: 100 mls/hr Methylprednisolone (Solu-Medrol) 40 mg IVP Q12 JOSE Last Admin: 05/30/18 09:53 Dose: 40 mg Morphine Sulfate (Morphine) 2 mg IVP Q6H PRN PRN Reason: Pain, severe (8-10) Last Admin: 05/30/18 08:49 Dose: 2 mg Ondansetron HCl (Zofran Inj) 4 mg IVP Q4H PRN PRN Reason: Nausea/Vomiting Last Admin: 05/30/18 08:50 Dose: 4 mg Pantoprazole Sodium (Protonix Inj) 40 mg IVP DAILY [facility] Last Admin: 05/30/18 10:03 Dose: 40 mg - Labs Labs: 05/30/18 09:00 05/30/18 09:00 PT 13.6 SECONDS (9.4-12.5) H 05/28/18 02:10 INR 1.19 05/28/18 02:10 APTT 26.0 Seconds (25.1-36.5) 05/28/18 02:10 - Constitutional Appears: Chronically Ill - Head Exam Head Exam: NORMAL INSPECTION - Respiratory Exam Respiratory Exam: Decreased Breath Sounds - Cardiovascular Exam Cardiovascular Exam: +S1, +S2 - GI/Abdominal Exam GI & Abdominal Exam: Soft. 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
[2018-05-31] MEDS: Albuterol 0.083% Inhal Sol (2.5 mg/3 mL) UD IH PRN ×2 (17:00→23:14)
[2018-06-01] MEDS: Albuterol 0.083% Inhal Sol (2.5 mg/3 mL) UD INH SCH ×3 (01:41→13:10)
[2018-06-01 08:37] VITALS: BP 124/79; PULSE 60; RESP 18; TEMP 97.6; O2SAT 96
[2018-06-01] MEDS ORDERED: cefTRIAXone 1 gm 1 GM/100 ML BAG IVPB SCH (10:00)
[2018-06-01] MEDS: MethylPREDNISolone 40 mg Vial IVP SCH (10:29)
[2018-06-01] MEDS: Morphine 2 mg/ml ISec IVP PRN (10:44)
[2018-06-01] MEDS: Albuterol-Ipratrop 3 mg / 0.5 (3 ml) UD IH PRN (10:51)
--- NOTE | 2018-06-01 13:09 | CP.PCM.PN ---
Subjective - Date & Time of Evaluation Date of Evaluation: 06/01/18 Time of Evaluation: 09:10 - Subjective Subjective: Surgery progress note, Dr. Andrew Patient seen and examined at bedside. She complains of nausea. She denied abd pain, vomiting , diarrhea. Objective - Vital Signs/Intake and Output Vital Signs (last 24 hours): Temp Pulse Resp BP Pulse Ox 97.6 F 60 18 124/79 96 06/01/18 06:00 06/01/18 06:00 06/01/18 06:00 06/01/18 06:00 06/01/18 06:00 Intake and Output: 06/01/18 06/01/18 06:59 18:59 Intake Total 360 Balance 360 - Medications Medications: Current Medications Albuterol Sulfate (Albuterol 0.083% Inhal Mariela (2.5 Mg/3 Ml) Ud) 2.5 mg IH [id number] PRN PRN Reason: Wheezing Last Admin: 05/31/18 23:14 Dose: 2.5 mg Albuterol Sulfate (Albuterol 0.083% Inhal Mariela (2.5 Mg/3 Ml) Ud) 2.5 mg INH [id number] JOSE Last Admin: 06/01/18 07:41 Dose: 2.5 mg Albuterol/Ipratropium (Duoneb 3 Mg/0.5 Mg (3 Ml) Ud) 3 ml IH Q6H PRN PRN Reason: Shortness of Breath Last Admin: 06/01/18 10:51 Dose: 3 ml Diphenhydramine HCl (Benadryl) 50 mg PO HS PRN PRN Reason: Insomnia Last Admin: 05/31/18 21:38 Dose: 50 mg Doxycycline Hyclate (Doryx) 100 mg PO Q12 JOSE; Protocol Last Admin: 06/01/18 10:28 Dose: 100 mg Metronidazole (Flagyl) 500 mg in 100 mls @ 100 mls/hr IVPB Q8 JOSE; Protocol Last Admin: 05/31/18 21:30 Dose: 100 mls/hr Ceftriaxone Sodium (Rocephin 1 Gram Ivpb) 1 gm in 100 mls @ 100 mls/hr IVPB DAILY [facility]; Protocol Last Admin: 06/01/18 10:23 Dose: 100 mls/hr Ibuprofen (Motrin Tab) 400 mg PO Q6H PRN PRN Reason: Temperature Methylprednisolone (Solu-Medrol) 20 mg IVP Q12 [facility] Last Admin: 06/01/18 10:29 Dose: 20 mg Morphine Sulfate (Morphine) 2 mg IVP Q6H PRN PRN Reason: Pain, severe (8-10) Last Admin: 06/01/18 10:44 Dose: 2 mg Ondansetron HCl (Zofran Inj) 4 mg IVP Q4H PRN PRN Reason: Nausea/Vomiting Last Admin: 05/31/18 23:06 Dose: 4 mg Pantoprazole Sodium (Protonix Inj) 40 mg IVP DAILY [facility] Last Admin: 06/01/18 10:28 Dose: 40 mg - Labs Labs: 05/31/18 06:40 05/31/18 06:40 PT 13.6 SECONDS (9.4-12.5) H 05/28/18 02:10 INR 1.19 05/28/18 02:10 APTT 26.0 Seconds (25.1-36.5) 05/28/18 02:10 - Constitutional Appears: Well, No Acute Distress - Head Exam Head Exam: ATRAUMATIC, NORMAL INSPECTION, NORMOCEPHALIC - Eye Exam Eye Exam: EOMI, Normal appearance, PERRL Pupil Exam: NORMAL ACCOMODATION, PERRL - ENT Exam ENT Exam: Mucous Membranes Moist, Normal Exam - Respiratory Exam Respiratory Exam: Clear to Ausculation Bilateral, NORMAL BREATHING PATTERN - Cardiovascular Exam Cardiovascular Exam: REGULAR RHYTHM, +S1, +S2. absent: Murmur - GI/Abdominal Exam GI & Abdominal Exam: Soft, Normal Bowel Sounds. absent: Tenderness - Extremities Exam Extremities Exam: Full ROM, Normal Capillary Refill, Normal Inspection. absent: Joint Swelling, Pedal Edema - Neurological Exam Neurological Exam: Alert, Awake, Oriented x3 - Psychiatric Exam Psychiatric exam: Normal Affect, Normal Mood - Skin Skin Exam: Dry, Intact, Normal Color, Warm Assessment and Plan - Assessment and Plan (Free Text) Assessment: 28 y/o female with PMH of endometriosis s/p laparoscopic endometriectomy admitted with abdominal pain Plan: -nausea is likely due to abx use -likely ELECTRICAL PROJECT ENGINEER etiology s/p laparoscopic endometriotic lesions excision -f/u outpatient ELECTRICAL PROJECT ENGINEER for further management of endometriosis -continue zofran , PPI -A/P CT: unremarkable -no acute surgical intervention indicated at this time -further recs per surgical attending Dr. Kamran Agarwal, DO
--- NOTE | 2018-06-01 14:46 | CP.PCM.PN ---
Subjective - Date & Time of Evaluation Date of Evaluation: 06/01/18 Time of Evaluation: 08:40 - Subjective Subjective: Patient has some nausea but a little better, no abdominal pain, breathing better, no fevers. Objective - Vital Signs/Intake and Output Vital Signs (last 24 hours): Temp Pulse Resp BP Pulse Ox 98.3 F 70 18 198/68 H 94 L 05/31/18 07:00 05/31/18 07:00 05/31/18 07:00 05/31/18 07:00 05/31/18 07:00 Intake and Output: 05/31/18 05/31/18 06:59 18:59 Intake Total 360 Balance 360 - Medications Medications: Current Medications Albuterol Sulfate (Albuterol 0.083% Inhal Mariela (2.5 Mg/3 Ml) Ud) 2.5 mg IH [id number] PRN PRN Reason: Wheezing Last Admin: 05/30/18 15:53 Dose: 2.5 mg Albuterol Sulfate (Albuterol 0.083% Inhal Mariela (2.5 Mg/3 Ml) Ud) 2.5 mg INH [id number] JOSE Last Admin: 05/31/18 13:41 Dose: 2.5 mg Albuterol/Ipratropium (Duoneb 3 Mg/0.5 Mg (3 Ml) Ud) 3 ml IH Q6H PRN PRN Reason: Shortness of Breath Last Admin: 05/31/18 07:49 Dose: 3 ml Diphenhydramine HCl (Benadryl) 50 mg PO HS PRN PRN Reason: Insomnia Last Admin: 05/30/18 03:44 Dose: 50 mg Doxycycline Hyclate (Doryx) 100 mg PO Q12 JOSE; Protocol Metronidazole (Flagyl) 500 mg in 100 mls @ 100 mls/hr IVPB Q8 JOSE; Protocol Last Admin: 05/31/18 13:06 Dose: 100 mls/hr Ceftriaxone Sodium (Rocephin 1 Gram Ivpb) 1 gm in 100 mls @ 100 mls/hr IVPB DAILY JOSE; Protocol Methylprednisolone (Solu-Medrol) 20 mg IVP Q12 JOSE Last Admin: 05/31/18 10:56 Dose: 20 mg Morphine Sulfate (Morphine) 2 mg IVP Q6H PRN PRN Reason: Pain, severe (8-10) Last Admin: 05/31/18 10:30 Dose: 2 mg Ondansetron HCl (Zofran Inj) 4 mg IVP Q4H PRN PRN Reason: Nausea/Vomiting Last Admin: 05/31/18 10:55 Dose: 4 mg Pantoprazole Sodium (Protonix Inj) 40 mg IVP DAILY JOSE Last Admin: 05/31/18 10:55 Dose: 40 mg - Labs Labs: 05/31/18 06:40 05/31/18 06:40 PT 13.6 SECONDS (9.4-12.5) H 05/28/18 02:10 INR 1.19 05/28/18 02:10 APTT 26.0 Seconds (25.1-36.5) 05/28/18 02:10 - Constitutional Appears: Non-toxic, No Acute Distress - Head Exam Head Exam: NORMAL INSPECTION - Respiratory Exam Respiratory Exam: Decreased Breath Sounds - Cardiovascular Exam Cardiovascular Exam: +S1, +S2 - GI/Abdominal Exam GI & Abdominal Exam: Soft. absent: Tenderness Assessment and Plan - Assessment and Plan (Free Text) Plan: Assessment Abdominal pain probably related to endometriosis and uterine fibroids, R/O mesenteric panniculitis, R/O intra-abdominal infection consider acute bronchitis asthma endometriosis S/P surgery uterine fibroids gastritis Plan on Rocephin and Flagyl and Doxycycline; blood cx are negative; reviewed CT A/P - can switch to PO Vantin and Doxycycline with outpatient follow up with PMD (finish another 3-5 days) CXR is negative for pneumonia rapid flu test is negative as OB-Cigar Inspector evaluation, patient needs follow up awaiting HIV test due to her age and this should be followed up by PMD patient has gram positive cocci in the urine but patient is not complaining of urinary symptoms
--- NOTE | 2018-06-01 16:08 | PN ---
DATE: 06/01/2018 SUBJECTIVE: status post laparoscopy about a week ago at the [facility]. She was here for a pain initially and persistent nausea. It required large amount of narcotics. CAT scan repeating shows small bit of fluid in the cul-de-sac. She is eating now and having liquid bowel movements. White count is normal. Her abdomen is soft and nontender. She needs to follow with medical. The charge master analyst did the operation, but they do not think there is anything remarkable in her belly. Certainly today, her abdomen is soft, nontender. Some of the nausea might of have been from the persistent Flagyl she was on or might have been related to the narcotics. In any case there is certainly no obstruction. The patient is to be discharged. I will be happy to see the patient in my office, but usually be followed by the [facility]NA[facility] team. Silvestre Andrew MD
--- NOTE | 2018-06-01 16:49 | DS ---
HISTORY OF PRESENT ILLNESS: The patient is 28 years old, seen and examined. The patient had some gynecological procedure done and has by Dr. Thomas. Postprocedure, she started to have abdominal discomfort. She went to [facility]. She was discharged the next day. She came her for further reevaluation. The patient spiked fever. She has CT of the abdomen and pelvis done that shows ovarian cyst and left lower pole renal mass. She was also found to have 4 x 3.5 cm cyst at the right adnexa and left adnexa and she also has fibroid uterus, small amount of free fluid in the pelvis. ASSESSMENT: 1. . 2. History of asthmatic bronchitis. 3. Diarrhea. Awaiting for stool for Clostridium difficile; however, she is eating and tolerating. She is afebrile, wished to go home. PLAN: The patient will be discharged home. She is advised to stay on soft diet. She will be discharged home on doxycycline 100 mg every 12 hours and Flagyl 500 every 8 hours for a week and she will follow with . . Roseanne Nunez MD
== END 2018-06-01 14:21 | disposition home or self-care (01) | DRG 760 ==
LOC: ED 01:22 → UNDOADMOB 04:55 → INTOOBSV 04:55 → OBSVTOIN 04:55 → ERH 04:55 → OBSVTOIN 05:05 → ERH 05:05 → 5RSO 06:28 → ERH 06:28 → 5RSO 06-01 09:53 → UNDODISIN 06-01 14:21
PROVIDERS: ADMIT Internal Medicine; ATTEND Internal Medicine
DX: D25.9 Leiomyoma of uterus, unspecified (principal); J45.901 Unspecified asthma with (acute) exacerbation; K65.4 Sclerosing mesenteritis; N80.9 Endometriosis, unspecified; N28.1 Cyst of kidney, acquired; N83.201 Unspecified ovarian cyst, right side; E87.6 Hypokalemia; K29.70 Gastritis, unspecified, without bleeding; R19.7 Diarrhea, unspecified; R10.30 Lower abdominal pain, unspecified

== ENCOUNTER 2018-07-08 08:33 | Observation (INO) | payer OTHER ==
[2018-07-08 08:34] VITALS: BMI 29.9
[2018-07-08] MEDS ORDERED: Sodium Chloride 0.9% 1,000 ML IV STA (09:05)
[2018-07-08] MEDS ORDERED: Morphine 2 mg/ml ISec IVP STA (09:05)
--- NOTE | 2018-07-08 09:21 | ED PDOC ---
Arrival/HPI - General Chief Complaint: Abdominal Pain Historian: Patient - History of Present Illness Narrative History of Present Illness (Text): 07/08/18 09:05 A 28 year old female, whose past medical history includes asthma, uterine fibroids, endometriosis (has surgery performed for it 05/18/2018 at a clinic), and gastritis, presents to the emergency department complaining of abdominal pain and vomiting starting last night at 04:00. Patient mentions whenever she has her period, she experiences lower abdominal pain and multiple episodes of vomiting, and states this mainly occurs due to endometriosis. Today, patient reports at 04:00, patient's menstrual period began and she began experiencing sudden chills, as she says is how symptoms normally starts whenever she has her period. Not too long afterward, began experiencing abdominal pain and a lot of vomiting. She explains she was here before and admitted for gastritis with similar symptoms from 05/28/2018-06/01/2018. Patient however states symptoms today are not as intense as prior visit. Notes upon discharge, she was feeling better. These past week, patient has been taking new endrometriosis medication (yesterday 4th day taking them), and last night had steak and ice tea but felt normal at the time. Patient denies any other complaints at this time. Patient mentions she is allergic to Reglan. PMD: Dr. 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 Frank Marroquin Treating her endometriosis: Dr. Spann. Past Medical History - Provider Review Nursing Documentation Reviewed: Yes - Infectious Disease Hx of Infectious Diseases: None - Reproductive Menopause: No - Past Medical History Past Medical History: No Previous - Cardiac Hx Cardiac Disorders: No - Pulmonary Hx Respiratory Disorders: Yes Hx Asthma: Yes - Neurological Hx Neurological Disorder: No - HEENT Hx HEENT Disorder: No - Renal Hx Renal Disorder: No Hx Kidney Stones: No - Endocrine/Metabolic Hx Endocrine Disorders: No - Hematological/Oncological Hx Blood Disorders: No - Integumentary Hx Dermatological Disorder: No - Musculoskeletal/Rheumatological Hx Musculoskeletal Disorders: No Hx Falls: No - Gastrointestinal Hx Gastrointestinal Disorders: Yes Hx Gastritis: Yes - Genitourinary/Gynecological Hx Genitourinary Disorders: No - Psychiatric Hx Psychophysiologic Disorder: No Hx Substance Use: Yes - Past Surgical History Past Surgical History: No Previous - Anesthesia Hx Anesthesia: No Hx Anesthesia Reactions: No Hx Malignant Hyperthermia: No - Suicidal Assessment Feels Threatened In Home Enviroment: No Family/Social History - Physician Review Nursing Documentation Reviewed: Yes Family/Social History: No Known Family HX Smoking Status: Never Smoked Hx Alcohol Use: Yes (occasionally) Hx Substance Use: Yes Substance used: marijuana Hx Substance Use Treatment: No Allergies/Home Meds Allergies/Adverse Reactions: Allergies metoclopramide [From Reglan] Adverse Reaction (Verified 05/28/18 01:29) ANAPHYLAXIS morphine Adverse Reaction (Verified 07/08/18 10:02) REDNESS Home Medications: Home Meds Medication Instructions Recorded Confirmed Elagolix Sodium [Orilissa] 150 mg PO DAILY 07/08/18 07/08/18 Review of Systems - Review of Systems Constitutional: absent: Fatigue, Fevers ENT: absent: Hearing Changes Respiratory: absent: SOB Cardiovascular: absent: Chest Pain, Palpitations, KIRAN Gastrointestinal: Abdominal Pain, Nausea, Vomiting, Appetite Changes. absent: Stool Changes, Constipation, Diarrhea, Hematochezia, Hematemesis Genitourinary Female: Other (currently on menstrual period). absent: Dysuria, Frequency, Urine Output Changes Musculoskeletal: absent: Back Pain, Neck Pain Skin: absent: Rash Neurological: absent: Headache, Dizziness, Focal Weakness Psychiatric: Anxiety. absent: Depression Physical Exam - Physical Exam Narrative Physical Exam (Text): Head: Atraumatic. Normocephalic. Eyes: PERRL. EOMI. Conjunctivae are not pale. ENT: Mucous membranes are moist and intact. Oropharynx is clear and symmetric. Neck: Supple. Full ROM. No JVD. No lymphadenopathy. Cardiovascular: Regular rate. Regular rhythm. No murmurs, rubs, or gallops. Distal pulses are 2+ and symmetric. Pulmonary/Chest: No evidence of respiratory distress. Clear to auscultation bilaterally. No wheezing, rales or rhonchi. Abdominal: Soft and non-distended. Diffuse moderate tenderness in upper and lower quadrants does not localize. Mild epigastric pain as well. No obregon's sign. Laparasopic scar noted with no erythema or drainage. Back: No CVA tenderness. Normal inspection. Pelvic: deferred at this time. No abnormal bleeding reported. Rectal: deferred at this time. No gross bleeding reported. Extremities: No edema. No cyanosis. No clubbing. Full range of motion in all extremities. No calf tenderness. Skin: Skin is warm and dry. No diaphoresis. Neurological: Alert, awake, and oriented. Motor and sensory exam intact. Psychiatric: Good eye contact. Normal interaction, affect, and behavior. Mildy anxious. Vital Signs Reviewed: Yes Vital Signs Temp Pulse Resp BP Pulse Ox 07/08/18 08:47 98.7 F 80 18 113/73 100 Temperature: Afebrile Appearance: Positive for: Uncomfortable Pain Distress: Moderate Medical Decision Making ED Course and Treatment: 07/08/18 09:22 Impression: 28 year old female with abdominal pain and multiple episodes of vomiting. Plan: -- Gallbladder Ultrasound -- Labs -- Morphine -- IV Fluids -- Protonix -- Urinalysis -- Influenza A/B Test -- Reassess and disposition Prior Visits: Notes and results from previous visits were reviewed. Patient was last seen here in the emergency department on 05/28/2018 for abdominal pain and vomiting. Patient was admitted for gastritis with similar symptoms as today's visit. Progress Notes: The following past imaging results have been reviewed FROM PREVIOUS HOSPITALIZATION: 05/28/2018 01:48 Abd/Pelvis CT IMPRESSION: High attenuation 1.6 cm low-density left lower pole renal mass. Recommend evaluation with renal ultrasound examination this likely corresponds to a previously identified complex cyst measuring 1.4 cm on abdominal ultrasound of 10/18/2016. 3 cm right ovarian cyst, likely physiologic. 1.1 cm nodule inferior left breast. Recommend nonemergent targeted ultrasound exam at [facility] of the left breast. The preliminary findings for this examination were reported by [facility] at 4:16 a.m. on 05/28/2018. There is discordance of this report with the preliminary findings. Nonspecific stranding of the greater omental fat is unchanged compared to 05/26/2018. This is not a typical appearance for mesenteric panniculitis. Dictator: Prashant Tran MD 05/28/2018 12:05 Transvaginal Ultrasound IMPRESSION: 1.5 cm anterior intramural uterine fibroid. Probable 3 cm right ovarian corpus luteum. Dictator: Prashant Tran MD 05/29/2018 08:00 Abd/Pelvis CT IMPRESSION: Small amount of free fluid in the pelvis. 4 cm cystic lesion at the right adnexa. Nonspecific mild mesenteric fat stranding noted in the mid abdomen. Additional findings discussed above. Dictator: Gerson Cochran MD 05/29/2018 12:18 Renal Ultrasound IMPRESSION: Stable appearance of left lower pole hypoechoic structure with septation measuring up to 1.5 cm. Dictator: López Barfield MD 07/08/18 09:45 Patient's prior visits and reviewed. Patient's past CT and ultrasound readings reviewed with patient and family, specifically recent ct abdomen/pelvis and cxr. She states pain is typical in location and character of previous episodes although states that she is having progressive pain. No fever. No chest pain. No shortness of breath. I have reviewed her allergies and previous given medications. She was ordered iv morphine, zofran, and protonix, all of which she has had in past with no adverse effect. Patient developed mild itchiness to left arm after administration of medication s, with no wheezing or pain in area, no urticaria. IV benadryl administered. She was observed with improvement in itchiness and no respiratory distress noted. Patient will have gallbladder ultrasound, labs, serial exams. 07/08/2018 10:40 Gallbladder Ultrasound IMPRESSION: Echogenic liver may be seen in setting of hepatic parenchymal disease or fatty infiltration. Dictator: Caridad Curry - Mitul Statement The provider has reviewed the documentation as recorded by the Mitul Connelly Provider Scribe Attestation: All medical record entries made by the Scribe were at my direction and personally dictated by me. I have reviewed the chart and agree that the record accurately reflects my personal performance of the history, physical exam, medic al decision making, and the department course for this patient. I have also personally directed, reviewed, and agree with the discharge instructions and disposition. Disposition/Present on Arrival - Present on Arrival Any Indicators Present on Arrival: No History of DVT/PE: No History of Uncontrolled Diabetes: No Urinary Catheter: No History of Decub. Ulcer: No History Surgical Site Infection Following: None - Disposition Have Diagnosis and Disposition been Completed?: Yes Diagnosis: Abdominal pain Patient Problems: Current Active Problems Problem Status Onset Abdominal pain Acute Referrals: PCP,NO [Primary Care Provider] - Follow up with primary Forms: [employer] (Maltese)
[2018-07-08 09:37] LABS: PH,URINE 6.5 (4.7-8.0); URINE BILIRUBIN NEGATIVE (NEGATIVE); URINE BLOOD LARGE (NEGATIVE); URINE GLUCOSE (UA) NEGATIVE (NEGATIVE); URINE LEUKOCYTE ESTERASE TRACE Leu/uL (NEGATIVE); URINE PROTEIN 100 mg/dL (<30 mg/dL); URINE UROBILINOGEN 0.2 E.U./dL (<1 E.U./dL)
[2018-07-08] MEDS ORDERED: DiphenhydrAMINE 50 mg/ml Inj IVP ONE (09:41)
[2018-07-08 09:44] LABS: URINE COLOR LIGHT BROWN (YELLOW)
[2018-07-08 09:45] LABS: HCG,QUALITATIVE URINE NEGATIVE (NEGATIVE); URINE APPEARANCE SL CLOUDY (CLEAR)
[2018-07-08] MEDS ORDERED: DiphenhydrAMINE 50 mg/ml Inj ONE (09:45)
[2018-07-08 09:52] LABS: URINE EPITHELIAL CELLS MANY /hpf (0-5)
[2018-07-08 09:53] LABS: URINE AMORPHOUS SEDIMENT FEW /hpf; URINE BACTERIA SMALL /hpf
[2018-07-08 09:55] LABS: BASO # 0.01 K/mm3 (0.0-2.0); BASO % 0.2 % (0.0-3.0); EOS # 0.3 (0.0-0.7); EOS % 6.1 % (1.5-5.0); HEMOGLOBIN 12.9 g/dL (12.0-16.0); LYMPH # 1.7 (1.2-3.4); LYMPH % 39.5 % (22.0-35.0); MEAN CELL VOLUME 91.3 fl (80.0-105.0); MEAN CORPUSCULAR HEMOGLOBIN 29.5 pg (25.0-35.0); MEAN CORPUSCULAR HGB CONC 32.3 g/dl (31.0-37.0); MEAN PLATELET VOLUME 10.9 fl (7.0-11.0); MONO # 0.4 (0.1-0.6); MONO % 8.4 % (1.0-6.0); RBC 4.38 10^6/uL (3.5-6.1); RED CELL DISTRIBUTION WIDTH 12.8 % (11.5-14.5); WHITE BLOOD COUNT 4.3 10^3/uL (4.5-11.0)
--- NOTE | 2018-07-08 10:45 | US ---
Date of service: 07/08/2018 HISTORY: ruq pain COMPARISON: CT abdomen and pelvis with contrast performed 05/29/18 TECHNIQUE: Sonographic evaluation of the right upper quadrant of the abdomen. FINDINGS: LIVER: Measures 13.8 cm in length. Echogenic liver may be seen in setting of hepatic parenchymal disease or fatty infiltration. No focal hepatic mass identified. The main portal vein appears patent with normal directional flow. No intrahepatic bile duct dilatation. GALLBLADDER: No gallstones. No gallbladder wall thickening or pericholecystic edema. Negative sonographic Biswas's sign as assessed by the nursing home aide. COMMON BILE DUCT: Measures 3 mm. PANCREAS: Not well-visualized. RIGHT KIDNEY: Measures approximately 9.8 x 4.5 x 5.9 cm. No obstructing calculus or hydronephrosis identified. AORTA: Limited visualization appears grossly unremarkable. IVC: Limited visualization appears grossly unremarkable. OTHER FINDINGS: None . IMPRESSION: Echogenic liver may be seen in setting of hepatic parenchymal disease or fatty infiltration.
[2018-07-08 11:24] LABS: ALB/GLOB RATIO 1.3 (1.1-1.8); ALT/SGPT 13 U/L (7-56); AMYLASE 188 U/L (35-125); AST/SGOT 22 U/L (14-36); BLOOD UREA NITROGEN 7 mg/dL (7-21); CALCIUM 8.8 mg/dL (8.4-10.5); GFR NON-AFRICAN AMERICAN > 60; LIPASE 100 U/L (23-300)
[2018-07-08] MEDS ORDERED: Sodium Chloride 0.9% 500 ML IV STA (12:14)
[2018-07-08] MEDS: Oxycodone/Acetaminophen 5/325 mg Tab PO PRN ×2 (15:02→23:57)
[2018-07-08] MEDS: Sodium Chloride 0.9% 1,000 ML IV SCH (15:02)
[2018-07-08] MEDS: Naproxen 550 mg Tab PO SCH (17:46)
[2018-07-08 17:58] VITALS: RESP 20
--- NOTE | 2018-07-08 23:49 | CP.PCM.PN ---
Subjective - Date & Time of Evaluation Date of Evaluation: 07/08/18 Time of Evaluation: 23:45 - Subjective Subjective: Patient was seen at bedside. She had complained of headache and was given tylenol for that. States that headache is going away. States that she has migraines. Denies any other symptoms . Denies dizziness, nausea, weakness , paraesthesia. Medical record was reviewed. This 28 year old woman was admitted with abdominal pain and vomiting. Has PMH of gastritis, uterine fibroid, endometriosis. Objective - Vital Signs/Intake and Output Vital Signs (last 24 hours): Temp Pulse Resp BP Pulse Ox 98.6 F 83 20 101/65 90 L 07/08/18 17:57 07/08/18 17:57 07/08/18 17:57 07/08/18 17:57 07/08/18 17:57 Intake and Output: 07/08/18 07/09/18 18:59 06:59 Intake Total 360 Balance 360 - Medications Medications: Current Medications Sodium Chloride (Sodium Chloride 0.9%) 1,000 mls @ 100 mls/hr IV .Q10H [facility] Last Admin: 07/08/18 15:02 Dose: 100 mls/hr Naproxen (Anaprox Ds) 550 mg PO BID [facility] Last Admin: 07/08/18 17:46 Dose: 550 mg Non-Formulary Medication (Elagolix Sodium [Orilissa]) 150 mg PO DAILY [facility] Ondansetron HCl (Zofran Inj) 4 mg IVP Q6H PRN PRN Reason: Nausea/Vomiting Oxycodone/Acetaminophen (Percocet 5/325 Mg Tab) 1 tab PO Q6H PRN PRN Reason: Pain, moderate (4-7) Stop: 07/11/18 14:32 Last Admin: 07/08/18 15:02 Dose: 1 tab Pantoprazole Sodium (Protonix Ec Tab) 40 mg PO 0630 [facility] - Labs Labs: 07/08/18 09:47 07/08/18 11:05 - Constitutional Appears: Well, No Acute Distress - Head Exam Head Exam: ATRAUMATIC, NORMAL INSPECTION, NORMOCEPHALIC - Eye Exam Eye Exam: Normal appearance - ENT Exam ENT Exam: Normal External Ear Exam - Neck Exam Neck Exam: Normal Inspection - Respiratory Exam Respiratory Exam: NORMAL BREATHING PATTERN - Cardiovascular Exam Cardiovascular Exam: absent: JVD - GI/Abdominal Exam GI & Abdominal Exam: absent: Distended - Rectal Exam Rectal Exam: Deferred - Exam Additional comments: Deferred. - Extremities Exam Extremities Exam: Normal Inspection - Back Exam Back Exam: NORMAL INSPECTION - Neurological Exam Neurological Exam: Alert, Awake, Oriented x3 - Psychiatric Exam Psychiatric exam: Normal Affect, Normal Mood - Skin Skin Exam: Normal Color Assessment and Plan - Assessment and Plan (Free Text) Assessment: Headache. Abdominal pain. Vomiting. Gastritis Endometriosis. Obesity. Plan: Tylenol 650 mg PO X 1. Continue present management.
[2018-07-09] MEDS: Sodium Chloride 0.9% 1,000 ML IV SCH (01:28)
[2018-07-09 01:41] VITALS: TEMP 97.9
[2018-07-09] MEDS ORDERED: Pantoprazole 40 mg EC Tab PO SCH (06:30)
[2018-07-09 07:40] VITALS: BP 108/64; PULSE 78; O2SAT 100
[2018-07-09] MEDS ORDERED: ELAGOLIX SODIUM 150 MG PO SCH (10:00)
[2018-07-09] MEDS: Naproxen 550 mg Tab PO SCH (11:04)
--- NOTE | 2018-07-09 14:14 | CP.PCM.CON ---
<Castillo Tirado - Last Filed: 07/09/18 14:31> History of Present Illness - History of Present Illness History of Present Illness: PGY5 GI Consult Note Nicole Branch is a 28F w/ hx of asthma, uterine fibroids, endometriosis (has surgery performed for it 05/18/2018 at a clinic), and gastritis, presents to the emergency department complaining of abdominal pain and vomiting. Pt states that her pain was below her epigastric area radiating towards lower quad B/L. Pt states that she normally has similar episodes of abd pain with nausea and vomiting around per mentral periods. Pt notes that she started her mentral flow yesterday. Pt denies any diarrhea, fever, chills or diaphoresis. Pt states that she follows GI as an oupt. She was supposed to have a repeat EGD in [place] but ws hospitalized at that time. She notes that she had an EGD in 2018 and was found to have gastritis. Notes only intermittent NSIAD use at home Family- Mother-cholecystectomy; sister-appendectomy Social- denies tobacco or alcohol use; admits to daily marijuana use " only during summer months and this is my first year using", no marijuana use for one week prior to admission Surgery-none Endo: 12/2016: cortez gastritis Past Patient History - Infectious Disease Hx of Infectious Diseases: None - Past Social History Smoking Status: cannabis - CARDIAC Hx Cardiac Disorders: No - PULMONARY Hx Respiratory Disorders: No - NEUROLOGICAL Hx Neurological Disorder: No - HEENT Hx HEENT Problems: No - RENAL Hx Chronic Kidney Disease: No - ENDOCRINE/METABOLIC Hx Endocrine Disorders: No - HEMATOLOGICAL/ONCOLOGICAL Hx Blood Disorders: No - INTEGUMENTARY Hx Dermatological Problems: No - MUSCULOSKELETAL/RHEUMATOLOGICAL Hx Musculoskeletal Disorders: No Hx Falls: No - GASTROINTESTINAL Hx Gastrointestinal Disorders: Yes (gastritis) - GENITOURINARY/GYNECOLOGICAL Hx Genitourinary Disorders: Yes (endometriosis) - PSYCHIATRIC Hx Psychophysiologic Disorder: No - SURGICAL HISTORY Hx Surgeries: No - ANESTHESIA Hx Anesthesia: No Hx Anesthesia Reactions: No Hx Malignant Hyperthermia: No Meds Home Medications: Home Medication List Medication Instructions Recorded Confirmed Type Naproxen [Anaprox DS] 500 mg PO BID #15 tab 07/09/18 Rx Allergies/Adverse Reactions: Allergies Allergy/AdvReac Type Severity Reaction Status Date / Time metoclopramide [From Reglan] AdvReac ANAPHYLAXIS Verified 05/28/18 01:29 morphine AdvReac REDNESS Verified 07/08/18 10:02 Physical Exam - Constitutional Appears: Non-toxic - Head Exam Head Exam: ATRAUMATIC, NORMOCEPHALIC - Eye Exam Eye Exam: Normal appearance - ENT Exam ENT Exam: Mucous Membranes Moist, Normal Exam - Neck Exam Neck exam: Positive for: Normal Inspection - Respiratory Exam Respiratory Exam: Clear to Auscultation Bilateral, NORMAL BREATHING PATTERN. absent: Rales, Rhonchi, Wheezes, Respiratory Distress, Stridor - Cardiovascular Exam Cardiovascular Exam: REGULAR RHYTHM, +S1, +S2 - GI/Abdominal Exam GI & Abdominal Exam: Normal Bowel Sounds, Soft. absent: Diminished Bowel Sounds, Distended, Firm, Guarding, Hernia, Organomegaly, Rebound, Rigid, Tenderness - Extremities Exam Extremities exam: Negative for: joint swelling, pedal edema - Neurological Exam Neurological exam: Alert, Oriented x3 - Psychiatric Exam Psychiatric exam: Normal Affect, Normal Mood - Skin Skin Exam: Dry, Intact, Normal Color, Warm Results - Vital Signs Recent Vital Signs: Last Vital Signs Temp 97.9 F 07/09/18 06:00 Pulse 78 07/09/18 06:00 Resp 20 07/09/18 06:00 BP 108/64 07/09/18 06:00 Pulse Ox 100 07/09/18 06:00 - Labs Result Diagrams: 07/08/18 09:47 07/08/18 11:05 Assessment & Plan - Assessment and Plan (Free Text) Assessment: Nicole Branch is a 28F w/ hx of asthma, uterine fibroids, endometriosis (has surgery performed for it 05/18/2018 at a clinic), and gastritis, presents to the emergency department complaining of abdominal pain and vomiting. Abd pain etiology unclear; DDx: gastritis, Fibroids, Endometriosis Hx of cortez gastritis Hx of endometriosis Uterine Fibroids Plan: -continue Prontinix Po 40mg daily -diet as tolerted -will decide on EGD after speaking with pt's primary team -recommend f/u w/ her GI as outpt -continue rest of care as per primary team -will follow D/W Dr. Weller <Surya Weller V - Last Filed: 07/09/18 23:02> Results - Vital Signs Recent Vital Signs: Last Vital Signs Temp 97.9 F 07/09/18 06:00 Pulse 78 07/09/18 06:00 Resp 20 07/09/18 06:00 BP 108/64 07/09/18 06:00 Pulse Ox 100 07/09/18 06:00 - Labs Result Diagrams: 07/08/18 09:47 07/08/18 11:05 Attending/Attestation - Attestation I have personally seen and examined this patient.: Yes I have fully participated in the care of the patient.: Yes I have reviewed all pertinent clinical information: Yes Notes (Text): This is an addendum to GI consult report dictated by the GI Fellow. The patient was seen and examined earlier. Medical records, lab studies, imagings were reviewed. Last 24 hours events reviewed. Agreed with the above treatment plan as outlined in GI Fellow 's notes with the addition of the following Patient is feeling better Patient did have multiple imaging studies in the past reviewed recent sonogram did not reveal any gallstones History of NSAID use Patient would benefit from endoscopy Patient wants to follow-up with Dr Frank Marroquin for repeat endoscopy and further evaluation. She mentions she already had 3 endoscopies in the past Discussed with Dr. Nunez Continue PPI 07/09/18 22:58
--- NOTE | 2018-07-10 00:22 | DS ---
HISTORY OF PRESENT ILLNESS: The patient is a 28-year-old came to emergency room because of issues abdominal pain, more so in the suprapubic area radiating to the back. This patient has history of gastric surgery. The patient was placed on observation. She was given anti-inflammatory in the cover of PPI. She is started to feeling well. Wants to go home today. PHYSICAL EXAMINATION: GENERAL: She is awake, alert, oriented and communicative. VITAL SIGNS: The patient is afebrile. Pulse 78, respirations 20 and blood pressure 108/64. LUNGS: Bilateral fair airflow. No rhonchi or crackle. HEART: S1 and S2, audible. ABDOMEN: Soft and nontender. No rebound. No guarding. NEUROLOGIC: The patient is awake, alert, oriented and able to communicate. She has had abdominal sonogram done that is unremarkable. ASSESSMENT: 1. Abdominal pain. 2. History of endometriosis. 3. Fatty liver. 4. History of uterine fibroid. 5. Bronchial asthma. PLAN: The patient is going to be discharged home today on Naprosyn 500 twice a day with food only for discomfort and she should follow with GI for possible endoscopy. She will follow with her PCP. Roseanne Nunez MD
--- NOTE | 2018-07-10 09:09 | HP ---
DATE OF EXAM: 07/08/2018 HISTORY OF PRESENT ILLNESS: The patient is 28 years old, came to emergency room because of diffuse abdominal pain. The patient states she ate dinner last night, after that she started to having vomiting. She also added that she started to have fever last night also. She took some Tylenol with no significant relief and because of pain she could not sleep. The pain got worse this morning. She came to emergency room for further evaluation. She was recently admitted in May for some asthma exacerbation. Denies any fever or chills. No history of nausea or vomiting and no diarrhea. Pain is diffuse more so in the suprapubic area radiates towards the back. 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 She was treated with IV antibiotic and she was discharged home in stable condition. PAST MEDICAL HISTORY: Significant for; 1. Bronchial asthma. 2. History of endometriosis. 3. Peptic ulcer disease. ALLERGIES: SHE IS ALLERGIC TO METOCLOPRAMIDE AND MORPHINE. MEDICATIONS AT HOME: She is on elagolix for her endometriosis. SOCIAL HISTORY: She is single, boyfriend is by the bedside. She does drink socially and occasionally smoke and uses recreational drugs. PHYSICAL EXAMINATION: GENERAL: She is awake, alert, oriented, and communicative. VITAL SIGNS: She is afebrile, pulse 60, respiration 18, and blood pressure 112/64. LUNGS: Bilateral fair airflow. No rhonchi or crackle. HEART: S1 and S2 audible. ABDOMEN: Soft, slight suprapubic palpable discomfort. NEUROLOGIC: She is awake, alert, oriented, and communicative. LABORATORY DATA: WBC 4.3, hemoglobin 12.9, hematocrit 40, and platelet 240. Chemistry; sodium 140, potassium 4.3, chloride 111, CO2 of 24, BUN 7, creatinine 0.7, and blood sugar of 77. Flu test is negative. Abdominal sonogram shows fatty liver and transvaginal sonogram, she has 1.5 cm intramural uterine fibroid and right ovarian cyst. ASSESSMENT: 1. Abdominal pain, probably dysmenorrhea. 2. History of peptic ulcer disease. 3. History of bronchial asthma. PLAN: We will start her on NSAID, give her IV fluid, and analgesic as needed. We will place her on observation. If she remains stable, she will be discharged in a.m. Roseanne Nunez MD
== END 2018-07-09 12:40 | disposition home or self-care (01) ==
LOC: ED 08:33 → ERH 12:30 → 3RNO 14:41
PROVIDERS: ADMIT Internal Medicine; ATTEND Internal Medicine
DX: N80.9 Endometriosis, unspecified (principal); R10.9 Unspecified abdominal pain; J45.909 Unspecified asthma, uncomplicated; D25.1 Intramural leiomyoma of uterus; G43.909 Migraine, unspecified, not intractable, without status migrainosus; K29.70 Gastritis, unspecified, without bleeding; K76.0 Fatty (change of) liver, not elsewhere classified; N83.201 Unspecified ovarian cyst, right side; E66.9 Obesity, unspecified; Z88.8 Allergy status to other drugs, medicaments and biological substances
CPT/HCPCS: 76705; 80053; 81001; 81025; 82150; 83690; 84703; 85025; 87086; 87804; 96361; 96374; 96375; 96376; 99285; C9113; G0378; J1200; J1885; J2270; J2405; J7030; J7040

== ENCOUNTER 2018-09-26 23:06 | Emergency (ER) | payer OTHER ==
[2018-09-26 23:42] VITALS: BMI 34.2
[2018-09-27 00:31] LABS: URINE APPEARANCE CLOUDY (CLEAR); URINE BILIRUBIN SMALL (NEGATIVE); URINE BLOOD LARGE (NEGATIVE); URINE COLOR YELLOW (YELLOW); URINE GLUCOSE (UA) NEGATIVE (NEGATIVE); URINE LEUKOCYTE ESTERASE MODERATE Leu/uL (NEGATIVE); URINE PROTEIN 100 mg/dL (<30 mg/dL)
[2018-09-27] MEDS: Albuterol-Ipratrop 3 mg / 0.5 (3 ml) UD IH SCH ×2 (00:46→01:00)
--- NOTE | 2018-09-27 00:54 | ED PDOC ---
Arrival/HPI - General Historian: Patient - History of Present Illness Narrative History of Present Illness (Text): 09/27/18 01:00 28 yo F w/ PMH endometriosis, uterine fibroids and gastritis, reports developing mild lower abdominal pain earlier today, she then took a nap, woke up and felt that the pain became intense mostly to the suprapubic area associated with nausea, vomiting, diarrhea and hematuria. Otherwise denies any fever, chills, back pain, vaginal bleeding, vaginal discharge. States that her LMP was on 09/06/18, she is currently taking clomid to get . She adds that she had surgery for her endometriosis to remove scar tissue hence why she is now trying to conceive. <Aida Singh - Last Filed: 09/27/18 02:29> <Patrick De Jesus - Last Filed: 09/27/18 05:14> - General Chief Complaint: Abdominal Pain Time Seen by Provider: 09/26/18 23:20 Past Medical History - Infectious Disease Hx of Infectious Diseases: None - Past Medical History Past Medical History: No Previous - Cardiac Hx Cardiac Disorders: No - Pulmonary Hx Respiratory Disorders: Yes Hx Asthma: Yes - Neurological Hx Neurological Disorder: No - HEENT Hx HEENT Disorder: No - Renal Hx Renal Disorder: No Hx Kidney Stones: No - Endocrine/Metabolic Hx Endocrine Disorders: No - Hematological/Oncological Hx Blood Disorders: No - Integumentary Hx Dermatological Disorder: No - Musculoskeletal/Rheumatological Hx Musculoskeletal Disorders: No Hx Falls: No - Gastrointestinal Hx Gastrointestinal Disorders: Yes Hx Gastritis: Yes - Genitourinary/Gynecological Hx Genitourinary Disorders: No Other/Comment: Endometriosis - Psychiatric Hx Psychophysiologic Disorder: No Hx Substance Use: Yes - Past Surgical History Past Surgical History: No Previous - Anesthesia Hx Anesthesia: No Hx Anesthesia Reactions: No Hx Malignant Hyperthermia: No - Suicidal Assessment Feels Threatened In Home Enviroment: No <Aida Singh - Last Filed: 09/27/18 02:29> Family/Social History Family/Social History: No Known Family HX Smoking Status: Never Smoked Hx Alcohol Use: Yes (occasionally) Hx Substance Use: Yes Substance used: marijuana Hx Substance Use Treatment: No <Aida Singh - Last Filed: 09/27/18 02:29> Allergies/Home Meds <Aida Singh - Last Filed: 09/27/18 02:29> <Patrick De Jesus - Last Filed: 09/27/18 05:14> Allergies/Adverse Reactions: Allergies metoclopramide [From Reglan] Adverse Reaction (Verified 05/28/18 01:29) ANAPHYLAXIS morphine Adverse Reaction (Verified 07/08/18 10:02) REDNESS Home Medications: Home Meds Medication Instructions Recorded Confirmed Elagolix Sodium [Orilissa] 150 mg PO DAILY 07/08/18 07/08/18 Review of Systems - Review of Systems Constitutional: absent: Fatigue, Fevers Respiratory: absent: SOB, Cough Cardiovascular: absent: Chest Pain, Palpitations Gastrointestinal: Abdominal Pain, Nausea. absent: Diarrhea, Vomiting Genitourinary Female: Hematuria. absent: Dysuria, Frequency Musculoskeletal: absent: Arthralgias, Back Pain Skin: absent: Rash, Skin Lesions Neurological: absent: Headache, Dizziness <Aida Singh - Last Filed: 09/27/18 02:29> Physical Exam Pain Distress: Moderate Mental Status: Positive for: Alert and Oriented X 3 - Systems Exam Head: Present: Atraumatic, Normocephalic Pupils: Present: PERRL Extroacular Muscles: Present: EOMI Conjunctiva: Present: Normal Mouth: Present: Moist Mucous Membranes Neck: Present: Normal Range of Motion Respiratory/Chest: Present: Clear to Auscultation, Good Air Exchange. No: Respiratory Distress, Accessory Muscle Use Cardiovascular: Present: Regular Rate and Rhythm, Normal S1, S2. No: Murmurs Abdomen: Present: Tenderness (+lower abdominal tenderness). No: Distention, Peritoneal Signs, Rebound, Guarding Genitourinary/Pelvic Exam: Present: Normal External Genitalia, Vaginal Discharge (+brown dark red bloody d/c noted), Cervical os Closed, Other (Female RN Darlene was present as nremt). No: Vaginal Bleeding, Vaginal Lesions, Adenexal Tenderness, Adenexal Mass, Cervical Motion Tendernes, Odor Back: Present: Normal Inspection. No: CVA Tenderness Upper Extremity: Present: Normal Inspection. No: Cyanosis, Edema Lower Extremity: Present: Normal Inspection. No: Edema Neurological: Present: GCS=15, CN II-XII Intact, Speech Normal Skin: Present: Warm, Dry, Normal Color. No: Rashes Psychiatric: Present: Alert, Oriented x 3, Normal Insight, Normal Concentration <Aida Singh - Last Filed: 09/27/18 02:29> Vital Signs Pulse Resp BP Pulse Ox 09/27/18 02:45 80 18 110/57 L 100 <TcbrandonPatrick - Last Filed: 09/27/18 05:14> Medical Decision Making ED Course and Treatment: 09/27/18 00:50 Plan : - Labs - US TV - IV - Toradol IV - Zofran IV - UA - Urine cx - Uhcg Uhcg (-). UA : +blood, +LE, +wbcs. Cbc & Cmp wnl. Rocephin 1 g IV ordered for UTI. On re-evaluation, patient still c/o suprapubic pain. On exam, patient is laying in bed in mild painful distress with mild lower abd tenderness, no rebound and no guarding. Morphine 4 mg IV and zofran 4 mg IV ordered, patient reports that she does not have an allergy to morphine. US results still pending. - Lab Interpretations Lab Results: Urine Color Yellow (YELLOW) 09/27/18 00:12 Urine Appearance Cloudy (CLEAR) 09/27/18 00:12 Urine pH 6.0 (4.7-8.0) 09/27/18 00:12 Ur Specific [place] >= 1.030 (1.005-1.035) 09/27/18 00:12 Urine Protein 100 mg/dL (<30 mg/dL) H 09/27/18 00:12 Urine Glucose (UA) Negative mg/dL (NEGATIVE) 09/27/18 00:12 Urine Ketones Negative mg/dL (NEGATIVE) 09/27/18 00:12 Urine Blood Large (NEGATIVE) H 09/27/18 00:12 Urine Nitrate Negative (NEGATIVE) 09/27/18 00:12 Urine Bilirubin Small (NEGATIVE) H 09/27/18 00:12 Urine Urobilinogen 2.0 E.U./dL (<1 E.U./dL) H 09/27/18 00:12 Ur Leukocyte Esterase Moderate Ronny/uL (NEGATIVE) H 09/27/18 00:12 - RAD Interpretation Radiology Orders: 09/27/18 00:18 TRANSVAGINAL [US] Stat - Medication Orders Current Medication Orders: Albuterol/Ipratropium (Duoneb 3 Mg/0.5 Mg (3 Ml) Ud) 3 ml IH Q15M JOSE Stop: 09/27/18 01:01 Discontinued Medications Ketorolac Tromethamine (Toradol) 30 mg IVP STAT STA Stop: 09/27/18 00:20 Ondansetron HCl (Zofran Inj) 4 mg IVP STAT STA Stop: 09/27/18 00:19 <Aida Singh - Last Filed: 09/27/18 02:29> - Lab Interpretations Lab Results: Total Bilirubin 0.5 mg/dL (0.2-1.3) 09/27/18 01:07 AST 33 U/L (14-36) 09/27/18 01:07 ALT 31 U/L (7-56) 09/27/18 01:07 Alkaline Phosphatase 58 U/L (38-126) 09/27/18 01:07 Total Protein 7.5 g/dL (5.8-8.3) 09/27/18 01:07 Albumin 4.2 g/dL (3.0-4.8) 09/27/18 01:07 Globulin 3.3 gm/dL 09/27/18 01:07 Albumin/Globulin Ratio 1.2 (1.1-1.8) 09/27/18 01:07 Lipase 107 U/L (23-300) 09/27/18 01:07 Urine Color Yellow (YELLOW) 09/27/18 00:12 Urine Appearance Cloudy (CLEAR) 09/27/18 00:12 Urine pH 6.0 (4.7-8.0) 09/27/18 00:12 Ur Specific [place] >= 1.030 (1.005-1.035) 09/27/18 00:12 Urine Protein 100 mg/dL (<30 mg/dL) H 09/27/18 00:12 Urine Glucose (UA) Negative mg/dL (NEGATIVE) 09/27/18 00:12 Urine Ketones Negative mg/dL (NEGATIVE) 09/27/18 00:12 Urine Blood Large (NEGATIVE) H 09/27/18 00:12 Urine Nitrate Negative (NEGATIVE) 09/27/18 00:12 Urine Bilirubin Small (NEGATIVE) H 09/27/18 00:12 Urine Urobilinogen 2.0 E.U./dL (<1 E.U./dL) H 09/27/18 00:12 Ur Leukocyte Esterase Moderate Ronny/uL (NEGATIVE) H 09/27/18 00:12 Urine RBC 5 - 10 /hpf (0-2) H 09/27/18 00:12 Urine WBC 10 - 15 /hpf (0-6) H 09/27/18 00:12 Ur Epithelial Cells 1 - 3 /hpf (0-5) 09/27/18 00:12 Urine Bacteria Small /hpf (NONE) 09/27/18 00:12 - RAD Interpretation Narrative RAD Interpretations (Text): Transvaginal US: Uterus is normal in size measuring 8.6 x3.4x5.6 cm. Retroverted uterus. Uterine fibroid measuring 2.6 cm. Normal cervical length measuring 3.5 cm. Endometrium is normal in thickness measuring 10 mm. No free fluid in the pelvic cul-de-sac. Right ovarian cyst measuring 1.1 cm. Left ovarian cyst measuring 1.6 cm. Impression: Uterine fibroid. No evidence of ovarian torsion. 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 - Medication Orders Current Medication Orders: Discontinued Medications Albuterol/Ipratropium (Duoneb 3 Mg/0.5 Mg (3 Ml) Ud) 3 ml IH Q15M JOSE Stop: 09/27/18 01:01 Last Admin: 09/27/18 01:00 Dose: 3 ml Ceftriaxone Sodium (Rocephin 1 Gram Ivpb) 1 gm in 100 mls @ 200 mls/hr IVPB STAT STA; Protocol Stop: 09/27/18 02:32 Last Admin: 09/27/18 02:21 Dose: 200 mls/hr eMAR Start Stop Document 09/27/18 02:21 VINOD (Rec: 09/27/18 02:33 VINOD [id number]) Intravenous Solution Start Date 09/27/18 Start Time 02:21 Ketorolac Tromethamine (Toradol) 30 mg IVP STAT STA Stop: 09/27/18 00:20 Last Admin: 09/27/18 01:19 Dose: 30 mg MAR Pain Assessment Document 09/27/18 01:19 RG (Rec: 09/27/18 02:04 [id number] Pain Reassessment Is this a pain reassessment? Yes Sleep Is patient sleeping during reassessment? No Presence of Pain Presence of Pain Yes Location Upper or Lower Lower Pain Location Body Site Abdomen IVP Administration Document 09/27/18 01:19 RG (Rec: 09/27/18 02:04 [id number] Charges for Administration # of IVP Administrations 1 Re-Assess: MAR Pain Assessment Document 09/27/18 02:19 RG (Rec: 09/27/18 02:36 [id number] Pain Reassessment Is this a pain reassessment? Yes Sleep Is patient sleeping during reassessment? No Presence of Pain Presence of Pain Yes Description Pain not relieved and LIP/MD was Yes notified Morphine Sulfate (Morphine) 4 mg IVP STAT STA Stop: 09/27/18 02:26 Last Admin: 09/27/18 02:35 Dose: 4 mg MAR Pain Assessment Document 09/27/18 02:35 RG (Rec: 09/27/18 02:36 [id number] Pain Reassessment Is this a pain reassessment? Yes Location Pain Location Body Site Abdomen Description Description Pressure Pain Behavior Facial Grimacing IVP Administration Document 09/27/18 02:35 RG (Rec: 09/27/18 02:36 [id number][facility] Charges for Administration # of IVP Administrations 1 Ondansetron HCl (Zofran Inj) 4 mg IVP STAT STA Stop: 09/27/18 00:19 Last Admin: 09/27/18 01:19 Dose: 4 mg IVP Administration Document 09/27/18 01:19 RG (Rec: 09/27/18 02:04 [id number][facility] Charges for Administration # of IVP Administrations 1 Ondansetron HCl (Zofran Inj) 4 mg IVP STAT STA Stop: 09/27/18 02:26 Last Admin: 09/27/18 02:36 Dose: 4 mg IVP Administration Document 09/27/18 02:36 RG (Rec: 09/27/18 02:36 [id number] Charges for Administration # of IVP Administrations 1 <Coccaro,Patrick - Last Filed: 09/27/18 05:14> - PA / LOCOMOTIVE MECHANIC / Resident Statement CLARISA has reviewed & agrees with the documentation as recorded. <Aida Singh - Last Filed: 09/27/18 02:29> - PA / LOCOMOTIVE MECHANIC / Resident Statement CLARISA has reviewed & agrees with the documentation as recorded. <Patrick De Jesus - Last Filed: 09/27/18 05:14> Disposition/Present on Arrival - Present on Arrival Any Indicators Present on Arrival: No History of DVT/PE: No History of Uncontrolled Diabetes: No Urinary Catheter: No History of Decub. Ulcer: No History Surgical Site Infection Following: None - Disposition Have Diagnosis and Disposition been Completed?: Yes <Aida Singh - Last Filed: 09/27/18 02:29> - Present on Arrival Any Indicators Present on Arrival: No - Disposition Have Diagnosis and Disposition been Completed?: Yes Disposition Time: 05:15 <Patrick De Jesus - Last Filed: 09/27/18 05:14> - Disposition Diagnosis: Abdominal pain, non-surgical, History of endometriosis, Urinary tract infection Disposition: HOME/ ROUTINE Patient Problems: Current Active Problems Problem Status Onset Abdominal pain, non-surgical Acute History of endometriosis Acute Urinary tract infection Acute Condition: IMPROVED Discharge Instructions (ExitCare): Urinary Tract Infections in Adults, Acute Abdomen (Belly Pain) Prescriptions: Cephalexin [cephalexin] 500 mg PO BID #14 cap Albuterol HFA [Ventolin HFA] 1 puff IH QID #1 puff Forms: [employer] ([place])
[2018-09-27 01:00] LABS: URINE BACTERIA SMALL /hpf
[2018-09-27 01:17] LABS: BASO # 0.02 K/mm3 (0.0-2.0); BASO % 0.3 % (0.0-3.0); EOS # 0.3 (0.0-0.7); EOS % 3.6 % (1.5-5.0); HEMOGLOBIN 12.7 g/dL (12.0-16.0); LYMPH # 2.5 (1.2-3.4); LYMPH % 36.8 % (22.0-35.0); MEAN CORPUSCULAR HEMOGLOBIN 28.5 pg (25.0-35.0); MEAN CORPUSCULAR HGB CONC 32.6 g/dl (31.0-37.0); MEAN PLATELET VOLUME 10.7 fl (7.0-11.0); MONO # 0.5 (0.1-0.6); MONO % 7.1 % (1.0-6.0); RBC 4.45 10^6/uL (3.5-6.1); RED CELL DISTRIBUTION WIDTH 13.4 % (11.5-14.5); WHITE BLOOD COUNT 6.9 10^3/uL (4.5-11.0)
[2018-09-27 01:19] LABS: MEAN CELL VOLUME 87.6 fl (80.0-105.0)
[2018-09-27 01:41] LABS: ALB/GLOB RATIO 1.2 (1.1-1.8); ALBUMIN 4.2 g/dL (3.0-4.8); ALT/SGPT 31 U/L (7-56); AST/SGOT 33 U/L (14-36); BLOOD UREA NITROGEN 10 mg/dL (7-21); CALCIUM 9.1 mg/dL (8.4-10.5); GFR NON-AFRICAN AMERICAN > 60; LIPASE 107 U/L (23-300)
[2018-09-27] MEDS ORDERED: cefTRIAXone 1 gm 1 GM/100 ML BAG IVPB STA (02:03)
[2018-09-27] MEDS ORDERED: Morphine 4 mg/ml ISec IVP STA (02:25)
[2018-09-27 02:45] VITALS: RESP 18; O2SAT 100
[2018-09-27 04:29] VITALS: BP 101/65; PULSE 79
--- NOTE | 2018-09-27 10:32 | US ---
Date of service: 09/27/2018 PROCEDURE: HISTORY: pelvic pain, r/o torsion COMPARISON: TECHNIQUE: FINDINGS: The uterus measures 8.6 x 3.4 x 5.6 centimeters. The uterus is retroverted. The endometrium measures 1 centimeter. There is a 2.4 centimeter anterior myoma. The ovaries have a normal sonographic appearance. There is no free fluid the cul-de-sac. IMPRESSION: Fibroid uterus.
== END 2018-09-27 06:15 | disposition home or self-care (01) ==
LOC: ED 23:06
DX: R19.7 Diarrhea, unspecified (principal); N39.0 Urinary tract infection, site not specified; N80.9 Endometriosis, unspecified; R10.30 Lower abdominal pain, unspecified
CPT/HCPCS: 76830; 80053; 81001; 81025; 83690; 85025; 87086; 96374; 96375; 96376; 99283; J0696; J1885; J2270; J2405